=== PATIENT | male | born 1955 | race Caucasian/White ===

== ENCOUNTER 2017-05-07 18:57 | Inpatient (IN) | payer OTHER ==
[~2017-05-07] VITALS: Ht 203.2 cm; Wt 149.0 kg
[2017-05-07] VITALS (32 sets, daily range): BP systolic 121–144; BP diastolic 64–73; PULSE 76–79; TEMP 98.5; O2SAT 93–98
[2017-05-07 19:25] LABS: BASO % 0.4 % (0.0-2.0); EOS # 0.3 (0.0-0.7); EOS % 3.2 % (0-4.0); GRAN # 7.7 (1.4-6.5); GRAN % 72.7 % (42.2-75.2); LYMPH # 1.7 (1.2-3.4); LYMPH % 15.7 % (20.0-51.0); MEAN CELL VOLUME 92 fl (80.0-100.0); MEAN CORPUSCULAR HEMOGLOBIN 31 pg (27.0-31.0); MEAN CORPUSCULAR HGB CONC 34 g/dl (33.0-37.0); MEAN PLATELET VOLUME 10.2 fl (7.4-10.4); MONO # 0.8 (0.1-0.6); MONO % 7.6 % (1.7-9.3); PLATELET COUNT 152 K/mm3 (130-400); RED BLOOD COUNT 3.89 M/mm3 (4.20-5.60); REDCELL DISTRIBUTION WIDTH-CV 12.4 % (11.5-14.5); WHITE BLOOD COUNT 10.6 K/mm3 (4.8-10.8)
[2017-05-07 19:27] LABS: PROTHROMBIN TIME 10.8 SECONDS (9.7-12.8)
[2017-05-07 19:30] LABS: HEMATOCRIT 35.7 % (42.0-52.0); PARTIAL THROMBOPLASTIN TIME 26.6 SECONDS (26.0-37.0)
[2017-05-07 19:35] LABS: ADJUSTED CALCIUM 9.3 mg/dL (8.4-10.2); ALBUMIN 3.5 gm/dL (3.5-5.0); BILIRUBIN,TOTAL 0.4 mg/dL (0.0-1.0); CALCIUM 8.9 mg/dL (8.4-10.2); CREATININE, serum 1.13 mg/dL (0.66-1.25); POTASSIUM 4.7 mmol/L (3.4-5.0); TOTAL PROTEIN 6.7 gm/dL (6.4-8.2)
[2017-05-07 19:48] LABS: TROPONIN-I 0.215 ng/mL (0.000-0.034)
[2017-05-07] MEDS ORDERED: ASPIRIN 81M81 MG/TA2 PO (20:12)
[2017-05-07] MEDS ORDERED: PRILOSEC 20MG20 MG (20:12)
[2017-05-07] MEDS ORDERED: NORVASC 10MG10 MG PO (20:13)
[2017-05-07] MEDS ORDERED: ZESTRIL40 MG PO (20:14)
[2017-05-07] MEDS ORDERED: GLUCOTROL10 MG PO (20:15)
[2017-05-07] MEDS ORDERED: LASIX 20MG TABL20 MG PO (20:16)
[2017-05-07] MEDS ORDERED: GLUCOPHAGE1000 MG PO (20:16)
[2017-05-07] MEDS ORDERED: IMDUR 60MG60 MG/TAB PO (20:17)
[2017-05-07] MEDS ORDERED: ZIAC 5/6.25MG T1 TAB PO (20:17)
[2017-05-07] MEDS ORDERED: LIPITOR 40MG TA40 MG PO (20:18)
[2017-05-07] MEDS ORDERED: LANTUS100 U/ML SQ ×2 (20:41)
[2017-05-07] MEDS ORDERED: NOVOLIN 70/30 710 ML SQ (20:42)
[2017-05-08] VITALS (726 sets, daily range): BP systolic 97–148; BP diastolic 55–84; PULSE 71–98; TEMP 98.2–101.8; O2SAT 75–100
[2017-05-08 07:48] LABS: PARTIAL THROMBOPLASTIN TIME 41.2 SECONDS (26.0-37.0)
[2017-05-08 09:23] LABS: ADJUSTED CALCIUM 9.9 mg/dL (8.4-10.2); ALBUMIN 3.4 gm/dL (3.5-5.0); BILIRUBIN,TOTAL 0.5 mg/dL (0.0-1.0); CALCIUM 9.4 mg/dL (8.4-10.2); CREATININE, serum 1.03 mg/dL (0.66-1.25); POTASSIUM 4.1 mmol/L (3.4-5.0); TOTAL PROTEIN 6.6 gm/dL (6.4-8.2)
[2017-05-08 20:03] LABS: PH 5 (5-8); SQUAMOUS EPITHELIAL 0-2 /hpf; URINE APPEARANCE Clear; URINE BACTERIA None Seen /hpf; URINE BILIRUBIN Negative (NEGATIVE); URINE BLOOD 2+ (NEGATIVE); URINE COLOR Yellow; URINE GLUCOSE Negative (NEGATIVE); URINE KETONE Trace (NEGATIVE); URINE RBC 0-2 /hpf; URINE UROBILINOGEN Negative (NEGATIVE)
[2017-05-09] VITALS (801 sets, daily range): BP systolic 130–163; BP diastolic 64–77; PULSE 64–92; TEMP 97.2–99.7; O2SAT 85–100
[2017-05-09 05:41] LABS: BASO % 0.3 % (0.0-2.0); EOS # 0.2 (0.0-0.7); EOS % 1.9 % (0-4.0); GRAN % 64.4 % (42.2-75.2); HEMATOCRIT 35.8 % (42.0-52.0); HEMOGLOBIN 11.9 g/dl (13.5-18.0); LYMPH # 1.7 (1.2-3.4); LYMPH % 21.3 % (20.0-51.0); MEAN CELL VOLUME 92 fl (80.0-100.0); MEAN CORPUSCULAR HEMOGLOBIN 31 pg (27.0-31.0); MEAN CORPUSCULAR HGB CONC 33 g/dl (33.0-37.0); MONO # 0.9 (0.1-0.6); MONO % 11.7 % (1.7-9.3); PLATELET COUNT 145 K/mm3 (130-400); REDCELL DISTRIBUTION WIDTH-CV 12.5 % (11.5-14.5); WHITE BLOOD COUNT 7.8 K/mm3 (4.8-10.8)
[2017-05-09 05:47] LABS: CALCIUM 9.1 mg/dL (8.4-10.2); CREATININE, serum 0.97 mg/dL (0.66-1.25); POTASSIUM 4.2 mmol/L (3.4-5.0)
[2017-05-10] VITALS (360 sets, daily range): BP systolic 104–136; BP diastolic 41–78; PULSE 54–68; TEMP 9.7; O2SAT 88–100
[2017-05-10 11:29] LABS: BASO % 0.2 % (0.0-2.0); EOS # 0.2 (0.0-0.7); EOS % 2.6 % (0-4.0); GRAN # 5.6 (1.4-6.5); GRAN % 69.6 % (42.2-75.2); LYMPH # 1.5 (1.2-3.4); LYMPH % 18.9 % (20.0-51.0); MEAN CELL VOLUME 92 fl (80.0-100.0); MEAN CORPUSCULAR HGB CONC 33 g/dl (33.0-37.0); MEAN PLATELET VOLUME 10.1 fl (7.4-10.4); MONO # 0.7 (0.1-0.6); MONO % 8.3 % (1.7-9.3); PLATELET COUNT 157 K/mm3 (130-400); RED BLOOD COUNT 3.86 M/mm3 (4.20-5.60); REDCELL DISTRIBUTION WIDTH-CV 12.5 % (11.5-14.5); WHITE BLOOD COUNT 8.1 K/mm3 (4.8-10.8)
[2017-05-10 11:32] LABS: HEMATOCRIT 35.4 % (42.0-52.0); HEMOGLOBIN 11.8 g/dl (13.5-18.0); MEAN CORPUSCULAR HEMOGLOBIN 31 pg (27.0-31.0)
[2017-05-10 11:33] LABS: CREATININE, serum 0.94 mg/dL (0.66-1.25); POTASSIUM 4.6 mmol/L (3.4-5.0)
[2017-05-11 03:45] VITALS: BP 149/64; PULSE 63; TEMP 99.1
[2017-05-11 07:10] LABS: HEMOGLOBIN 12.4 g/dl (13.5-18.0); MEAN CELL VOLUME 90 fl (80.0-100.0); MEAN CORPUSCULAR HEMOGLOBIN 31 pg (27.0-31.0); MEAN CORPUSCULAR HGB CONC 34 g/dl (33.0-37.0); PLATELET COUNT 161 K/mm3 (130-400); RED BLOOD COUNT 4.04 M/mm3 (4.20-5.60); REDCELL DISTRIBUTION WIDTH-CV 12.4 % (11.5-14.5); WHITE BLOOD COUNT 8.7 K/mm3 (4.8-10.8)
[2017-05-11 07:16] LABS: HEMATOCRIT 36.5 % (42.0-52.0)
[2017-05-11 08:29] VITALS: BP 123/57; PULSE 66; TEMP 98
[2017-05-11 11:32] VITALS: BP 122/60; PULSE 66; TEMP 99
[2017-05-11 16:55] VITALS: BP 126/66; PULSE 65; TEMP 96.8
[2017-05-11 19:15] VITALS: BP 131/61; PULSE 74; TEMP 98.8
[2017-05-12 00:23] VITALS: BP 142/66; PULSE 57; TEMP 98.6
[2017-05-12 03:22] VITALS: BP 138/90; PULSE 55; TEMP 99
[2017-05-12 07:10] VITALS: BP 120/72; PULSE 56; TEMP 98
[2017-05-12 09:16] LABS: HEMATOCRIT 37.7 % (42.0-52.0); HEMOGLOBIN 12.5 g/dl (13.5-18.0); MEAN CELL VOLUME 91 fl (80.0-100.0); MEAN CORPUSCULAR HEMOGLOBIN 30 pg (27.0-31.0); MEAN CORPUSCULAR HGB CONC 33 g/dl (33.0-37.0); MEAN PLATELET VOLUME 9.9 fl (7.4-10.4); PLATELET COUNT 183 K/mm3 (130-400); RED BLOOD COUNT 4.13 M/mm3 (4.20-5.60); REDCELL DISTRIBUTION WIDTH-CV 12.2 % (11.5-14.5); WHITE BLOOD COUNT 9.3 K/mm3 (4.8-10.8)
[2017-05-12 09:37] LABS: CREATININE, serum 0.96 mg/dL (0.66-1.25); POTASSIUM 4.4 mmol/L (3.4-5.0)
[2017-05-12 10:04] LABS: THYROID STIMULATING HORMONE 0.935 uIU/mL (0.465-4.680)
[2017-05-12] MEDS ORDERED: BRILINTA90 MG PO (12:03)
[2017-05-12] MEDS ORDERED: ASPIRIN E.C. 8181 MG PO (12:05)
[2017-05-12] MEDS ORDERED: ZITHROMAX Z PA250 MG PO (12:08)
[2017-05-12 13:21] VITALS: BP 11/62; PULSE 71; TEMP 98
[2017-05-12] MEDS ORDERED: NOVOLOG 100U100 U/M1 SQ (16:05)
[2017-05-12] MEDS ORDERED: PREDNISONE20 MG PO (16:09)
== END 2017-05-12 14:59 | DRG 248 ==
LOC: COL.ER 18:57 → ICU 20:26 → MEDICAL 05-10 13:03
PROVIDERS: Emergency Medicine; Internal Medicine; Internal Medicine Cardiovascular Disease
PROC: 02703EZ Dilation of Coronary Artery, One Artery with Two Intraluminal Devices, Percutaneous Approach (ICD-10-PCS; principal; 2017-05-08)
PROC: B2111ZZ Fluoroscopy of Multiple Coronary Arteries using Low Osmolar Contrast (ICD-10-PCS; 2017-05-08)
PROC: 3E03317 Introduction of Other Thrombolytic into Peripheral Vein, Percutaneous Approach (ICD-10-PCS; 2017-05-08)
DX: I21.4 Non-ST elevation (NSTEMI) myocardial infarction (principal); I63.9 Cerebral infarction, unspecified; E87.1 Hypo-osmolality and hyponatremia; J44.1 Chronic obstructive pulmonary disease with (acute) exacerbation; I50.20 Unspecified systolic (congestive) heart failure; G81.91 Hemiplegia, unspecified affecting right dominant side; R29.810 Facial weakness; E11.65 Type 2 diabetes mellitus with hyperglycemia; E78.5 Hyperlipidemia, unspecified; I25.10 Atherosclerotic heart disease of native coronary artery without angina pectoris; I11.0 Hypertensive heart disease with heart failure; Z79.4 Long term (current) use of insulin; Z87.891 Personal history of nicotine dependence
CPT/HCPCS: OP; 99223-AI; 99233-AI; 99239; A4315; A9585; C1760; C1769; C1876; C1887; C1894; J0583; J1644; J1815; J1940; J1956; J2250; J2270; J2997; J3010; J7512; Q9967

== ENCOUNTER 2017-05-12 15:08 | Inpatient (IN) | payer OTHER ==
[~2017-05-12] VITALS: Ht 203.2 cm; Wt 149.2 kg
[~2017-05-12 15:08] MED LIST: ASPIRIN 81M81 MG/TA2 PO; ASPIRIN E.C. 8181 MG PO; BRILINTA90 MG PO; GLUCOPHAGE1000 MG PO; GLUCOTROL10 MG PO; IMDUR 60MG60 MG/TAB PO; LANTUS100 U/ML SQ; LASIX 20MG TABL20 MG PO; LIPITOR 40MG TA40 MG PO; NORVASC 10MG10 MG PO; NOVOLIN 70/30 710 ML SQ; PRILOSEC 20MG20 MG; ZESTRIL40 MG PO; ZIAC 5/6.25MG T1 TAB PO; ZITHROMAX Z PA250 MG PO
[2017-05-12 15:21] VITALS: BP 143/67; PULSE 70; TEMP 97.7
[2017-05-12] MEDS ORDERED: NOVOLOG 100U100 U/M1 SQ (16:05)
[2017-05-12] MEDS ORDERED: PREDNISONE20 MG PO (16:09)
[2017-05-12 18:49] VITALS: BP 143/67; PULSE 70; TEMP 97.7
[2017-05-13 03:53] VITALS: BP 139/61; PULSE 51; TEMP 98.8
[2017-05-13 18:14] VITALS: BP 123/65; PULSE 60; TEMP 98.5
[2017-05-14 05:00] VITALS: BP 132/46; PULSE 53; TEMP 98.6
[2017-05-14 16:39] VITALS: BP 113/51; PULSE 58; TEMP 98.2
[2017-05-15 05:19] VITALS: BP 125/57; PULSE 56; TEMP 98.3
[2017-05-15 17:47] VITALS: BP 116/56; PULSE 65; TEMP 97.8
[2017-05-16 04:56] VITALS: BP 136/53; PULSE 52; TEMP 97.8
[2017-05-16 15:46] VITALS: BP 110/54; PULSE 65; TEMP 98.5
[2017-05-17 03:34] VITALS: BP 134/56; PULSE 59; TEMP 97.5
[2017-05-17 18:29] VITALS: BP 119/55; PULSE 74; TEMP 98.2
[2017-05-18 05:41] VITALS: BP 133/62; PULSE 60; TEMP 97.7
[2017-05-18 15:00] VITALS: BP 121/55; PULSE 68; TEMP 98.2
[2017-05-19 06:19] VITALS: BP 126/59; PULSE 59; TEMP 97.7
[2017-05-19 18:03] VITALS: BP 110/53; PULSE 61; TEMP 97.7
[2017-05-20 04:44] VITALS: BP 134/64; PULSE 52; TEMP 98.1
[2017-05-20 05:02] VITALS: BP 134/64; PULSE 52; TEMP 98.1
[2017-05-20 17:42] VITALS: BP 108/55; PULSE 70; TEMP 99.5
[2017-05-21 05:25] VITALS: BP 144/75; PULSE 57; TEMP 97.1
[2017-05-21 16:26] VITALS: BP 114/52; PULSE 67; TEMP 98.4
[2017-05-22 04:42] VITALS: BP 139/66; PULSE 58; TEMP 97.7
[2017-05-22 17:42] VITALS: BP 119/60; PULSE 73; TEMP 98.5
[2017-05-23 05:45] VITALS: BP 128/63; PULSE 63; TEMP 97.9
[2017-05-23 17:00] VITALS: BP 110/60; PULSE 78; TEMP 98.7
[2017-05-24 04:46] VITALS: BP 128/67; PULSE 61; TEMP 97.6
[2017-05-24] MEDS ORDERED: BRILINTA90 MG PO (13:44)
[2017-05-24] MEDS ORDERED: LASIX 20MG TABL20 MG PO (13:45)
[2017-05-24] MEDS ORDERED: PREDNISONE10 MG PO (13:48)
== END 2017-05-24 16:35 | disposition home or self-care (01) | DRG 56 ==
DX: I69.351 Hemiplegia and hemiparesis following cerebral infarction affecting right dominant side (principal); I21.4 Non-ST elevation (NSTEMI) myocardial infarction; I69.322 Dysarthria following cerebral infarction; I69.391 Dysphagia following cerebral infarction; R13.10 Dysphagia, unspecified; I25.10 Atherosclerotic heart disease of native coronary artery without angina pectoris; Z95.5 Presence of coronary angioplasty implant and graft; I11.0 Hypertensive heart disease with heart failure; I50.9 Heart failure, unspecified; J44.9 Chronic obstructive pulmonary disease, unspecified; E11.42 Type 2 diabetes mellitus with diabetic polyneuropathy; E66.01 Morbid (severe) obesity due to excess calories; Z68.35 Body mass index [BMI] 35.0-35.9, adult; E11.65 Type 2 diabetes mellitus with hyperglycemia; Z87.891 Personal history of nicotine dependence
CPT/HCPCS: 99222-AI; 99232-AI; 99239; A9284; J1650; J1815; J7512

== ENCOUNTER → 2017-06-05 | Outpatient (CLI) | payer OTHER ==
[~2017-06-05] MED LIST changes: +NOVOLOG 100U100 U/M1 SQ; +PREDNISONE10 MG PO; +PREDNISONE20 MG PO
[2017-06-05 14:36] LABS: BASO # 0.1 (0.0-0.2); BASO % 0.5 % (0.0-2.0); EOS # 0.3 (0.0-0.7); EOS % 2.8 % (0-4.0); GRAN # 7.8 (1.4-6.5); HEMATOCRIT 38.5 % (42.0-52.0); HEMOGLOBIN 12.7 g/dl (13.5-18.0); LYMPH # 2.2 (1.2-3.4); LYMPH % 20.1 % (20.0-51.0); MEAN CELL VOLUME 93 fl (80.0-100.0); MEAN CORPUSCULAR HEMOGLOBIN 31 pg (27.0-31.0); MEAN CORPUSCULAR HGB CONC 33 g/dl (33.0-37.0); MEAN PLATELET VOLUME 9.8 fl (7.4-10.4); MONO # 0.6 (0.1-0.6); MONO % 5.1 % (1.7-9.3); PLATELET COUNT 172 K/mm3 (130-400); RED BLOOD COUNT 4.15 M/mm3 (4.20-5.60); REDCELL DISTRIBUTION WIDTH-CV 13.3 % (11.5-14.5)
[2017-06-05 14:41] LABS: ADJUSTED CALCIUM 9.6 mg/dL (8.4-10.2); ALBUMIN 4.2 gm/dL (3.5-5.0); BILIRUBIN,TOTAL 0.6 mg/dL (0.0-1.0); CALCIUM 9.8 mg/dL (8.4-10.2); CREATININE, serum 0.99 mg/dL (0.66-1.25); MAGNESIUM 1.5 mg/dL (1.6-2.3); POTASSIUM 4.9 mmol/L (3.4-5.0); TOTAL PROTEIN 7.5 gm/dL (6.4-8.2)
== END ==
LOC: COL.LAB 12:37
PROVIDERS: Family Medicine
DX: E11.9 Type 2 diabetes mellitus without complications (principal)

== ENCOUNTER 2017-09-26 08:01 | Emergency (ER) | payer SELFPAY ==
[~2017-09-26] VITALS: Ht 203.2 cm; Wt 145.9 kg
[2017-09-26 08:02] VITALS: TEMP 98
[2017-09-26] MEDS ORDERED: PRINIVIL10 MG PO (08:11)
[2017-09-26] MEDS ORDERED: PLAVIX 75MG TAB75 MG PO (08:12)
[2017-09-26] MEDS ORDERED: NITROSTAT0.4 MG/TAB SL (08:15)
[2017-09-26 08:45] LABS: BASO # 0.1 (0.0-0.2); BASO % 0.5 % (0.0-2.0); EOS # 0.3 (0.0-0.7); GRAN # 7.9 (1.4-6.5); GRAN % 72.8 % (42.2-75.2); HEMATOCRIT 40.7 % (42.0-52.0); HEMOGLOBIN 13.5 g/dl (13.5-18.0); LYMPH # 1.9 (1.2-3.4); LYMPH % 17.1 % (20.0-51.0); MEAN CELL VOLUME 91 fl (80.0-100.0); MEAN CORPUSCULAR HEMOGLOBIN 30 pg (27.0-31.0); MEAN CORPUSCULAR HGB CONC 33 g/dl (33.0-37.0); MEAN PLATELET VOLUME 9.5 fl (7.4-10.4); MONO # 0.7 (0.1-0.6); MONO % 6.1 % (1.7-9.3); PLATELET COUNT 217 K/mm3 (130-400); RED BLOOD COUNT 4.47 M/mm3 (4.20-5.60); REDCELL DISTRIBUTION WIDTH-CV 12.1 % (11.5-14.5)
[2017-09-26 08:57] LABS: ALBUMIN 4.2 gm/dL (3.5-5.0); BILIRUBIN,TOTAL 0.5 mg/dL (0.0-1.0); CALCIUM 9.9 mg/dL (8.4-10.2); CREATININE, serum 1.15 mg/dL (0.66-1.25); POTASSIUM 4.3 mmol/L (3.4-5.0); TOTAL PROTEIN 7.7 gm/dL (6.4-8.2)
[2017-09-26] MEDS ORDERED: CEPHALEXIN500 M1 PO (09:16)
[2017-09-26 10:10] VITALS: BP 109/77; PULSE 80
== END 2017-09-26 10:01 | disposition home or self-care (01) ==
LOC: COL.ER 08:01
PROVIDERS: Emergency Medicine
DX: S91.201A Unspecified open wound of right great toe with damage to nail, initial encounter (principal); I25.10 Atherosclerotic heart disease of native coronary artery without angina pectoris; Z86.73 Personal history of transient ischemic attack (TIA), and cerebral infarction without residual deficits; Z79.82 Long term (current) use of aspirin; Z23 Encounter for immunization; Z79.84 Long term (current) use of oral hypoglycemic drugs; W01.0XXA Fall on same level from slipping, tripping and stumbling without subsequent striking against object, initial encounter; Y92.009 Unspecified place in unspecified non-institutional (private) residence as the place of occurrence of the external cause

== ENCOUNTER 2017-10-23 11:40 | Inpatient (IN) | payer OTHER ==
[~2017-10-23] VITALS: Ht 203.2 cm; Wt 148.5 kg
[~2017-10-23 11:40] MED LIST changes: +CEPHALEXIN500 M1 PO; -IMDUR 60MG60 MG/TAB PO; +NITROSTAT0.4 MG/TAB SL; +PLAVIX 75MG TAB75 MG PO; +PRINIVIL10 MG PO
[2017-10-23 12:30] LABS: BASO # 0.1 (0.0-0.2); BASO % 0.4 % (0.0-2.0); EOS # 0.4 (0.0-0.7); EOS % 2.9 % (0-4.0); GRAN # 9.7 (1.4-6.5); GRAN % 74.4 % (42.2-75.2); HEMATOCRIT 41.3 % (42.0-52.0); HEMOGLOBIN 13.6 g/dl (13.5-18.0); LYMPH # 2.1 (1.2-3.4); LYMPH % 15.9 % (20.0-51.0); MEAN CELL VOLUME 92 fl (80.0-100.0); MEAN CORPUSCULAR HEMOGLOBIN 30 pg (27.0-31.0); MEAN CORPUSCULAR HGB CONC 33 g/dl (33.0-37.0); MONO # 0.8 (0.1-0.6); MONO % 6.1 % (1.7-9.3); PLATELET COUNT 216 K/mm3 (130-400); REDCELL DISTRIBUTION WIDTH-CV 12.6 % (11.5-14.5)
[2017-10-23 12:36] LABS: ALANINE AMINOTRANSFERASE 97 U/L (21-72); ALBUMIN 4.2 gm/dL (3.5-5.0); ALKALINE PHOSPHATASE 94 U/L (50-136); ANION GAP 11 mmol/L (7-16); AST,SGOT 43 U/L (15-37); BILIRUBIN,TOTAL 0.4 mg/dL (0.0-1.0); BLOOD UREA NITROGEN 35 mg/dL (9-20); CARBON DIOXIDE 25 mmol/L (22-30); CHLORIDE 98 mmol/L (98-107); CREATININE, serum 1.13 mg/dL (0.66-1.25); GLUCOSE 387 mg/dL (74-106); LIPASE 92 U/L (23-300); MAGNESIUM 1.5 mg/dL (1.6-2.3); PHOSPHOROUS 4.2 mg/dL (2.5-4.5); POTASSIUM 5.2 mmol/L (3.4-5.0); PROTHROMBIN TIME 11.5 SECONDS (9.7-12.8); SODIUM 134 mmol/L (137-145); TOTAL PROTEIN 7.8 gm/dL (6.4-8.2)
[2017-10-23] MEDS ORDERED: NOVOLIN 70/30 710 ML SQ (12:36)
[2017-10-23] MEDS ORDERED: LANTUS100 U/ML SQ (12:36)
[2017-10-23 12:38] LABS: PARTIAL THROMBOPLASTIN TIME 27.5 SECONDS (26.0-37.0)
[2017-10-23] MEDS ORDERED: IMDUR 60MG60 MG/TAB PO (12:40)
[2017-10-23 12:48] LABS: TROPONIN-I < 0.012 ng/mL (0.000-0.034)
[2017-10-23 17:56] VITALS: BP 117/61; PULSE 76; TEMP 97.8
[2017-10-23 20:13] VITALS: BP 116/83; PULSE 87; TEMP 98.1
[2017-10-24] VITALS (21 sets, daily range): BP systolic 92–139; BP diastolic 50–95; PULSE 73–108; TEMP 97.4–98.6
[2017-10-24 05:08] LABS: BASO % 0.4 % (0.0-2.0); EOS # 0.4 (0.0-0.7); EOS % 4.3 % (0-4.0); GRAN # 6.4 (1.4-6.5); GRAN % 67.1 % (42.2-75.2); HEMATOCRIT 38.5 % (42.0-52.0); HEMOGLOBIN 12.9 g/dl (13.5-18.0); LYMPH % 20.4 % (20.0-51.0); MEAN CELL VOLUME 91 fl (80.0-100.0); MEAN CORPUSCULAR HEMOGLOBIN 31 pg (27.0-31.0); MEAN CORPUSCULAR HGB CONC 34 g/dl (33.0-37.0); MEAN PLATELET VOLUME 9.8 fl (7.4-10.4); MONO # 0.7 (0.1-0.6); MONO % 7.5 % (1.7-9.3); PLATELET COUNT 189 K/mm3 (130-400); RED BLOOD COUNT 4.23 M/mm3 (4.20-5.60); REDCELL DISTRIBUTION WIDTH-CV 12.6 % (11.5-14.5)
[2017-10-24 05:23] LABS: CALCIUM 9.7 mg/dL (8.4-10.2); CREATININE, serum 1.42 mg/dL (0.66-1.25); MAGNESIUM 1.8 mg/dL (1.6-2.3); POTASSIUM 4.3 mmol/L (3.4-5.0)
[2017-10-25] VITALS (503 sets, daily range): BP systolic 98–135; BP diastolic 49–82; PULSE 62–93; TEMP 97.1–98.2; O2SAT 74–100
[2017-10-25 07:04] LABS: BASO % 0.4 % (0.0-2.0); EOS # 0.3 (0.0-0.7); GRAN # 5.6 (1.4-6.5); GRAN % 65.9 % (42.2-75.2); HEMATOCRIT 38.9 % (42.0-52.0); HEMOGLOBIN 12.9 g/dl (13.5-18.0); LYMPH # 1.8 (1.2-3.4); LYMPH % 21.3 % (20.0-51.0); MEAN CELL VOLUME 91 fl (80.0-100.0); MEAN CORPUSCULAR HEMOGLOBIN 30 pg (27.0-31.0); MEAN CORPUSCULAR HGB CONC 33 g/dl (33.0-37.0); MEAN PLATELET VOLUME 9.8 fl (7.4-10.4); MONO # 0.7 (0.1-0.6); MONO % 7.9 % (1.7-9.3); PLATELET COUNT 204 K/mm3 (130-400); RED BLOOD COUNT 4.28 M/mm3 (4.20-5.60); REDCELL DISTRIBUTION WIDTH-CV 12.6 % (11.5-14.5)
[2017-10-25 07:16] LABS: CALCIUM 9.5 mg/dL (8.4-10.2); CREATININE, serum 1.55 mg/dL (0.66-1.25); POTASSIUM 4.2 mmol/L (3.4-5.0)
[2017-10-26] VITALS (254 sets, daily range): BP systolic 141–166; BP diastolic 64–72; PULSE 77–102; TEMP 98–98.6; O2SAT 81–100
[2017-10-26 03:50] LABS: BASO % 0.3 % (0.0-2.0); EOS # 0.3 (0.0-0.7); EOS % 2.7 % (0-4.0); GRAN # 6.8 (1.4-6.5); GRAN % 73.7 % (42.2-75.2); HEMATOCRIT 36.5 % (42.0-52.0); HEMOGLOBIN 12.3 g/dl (13.5-18.0); LYMPH # 1.4 (1.2-3.4); LYMPH % 14.9 % (20.0-51.0); MEAN CELL VOLUME 91 fl (80.0-100.0); MEAN CORPUSCULAR HEMOGLOBIN 31 pg (27.0-31.0); MEAN CORPUSCULAR HGB CONC 34 g/dl (33.0-37.0); MEAN PLATELET VOLUME 9.7 fl (7.4-10.4); MONO # 0.7 (0.1-0.6); MONO % 8.1 % (1.7-9.3); PLATELET COUNT 168 K/mm3 (130-400); RED BLOOD COUNT 4.02 M/mm3 (4.20-5.60); REDCELL DISTRIBUTION WIDTH-CV 12.5 % (11.5-14.5)
[2017-10-26 04:00] LABS: CALCIUM 9.2 mg/dL (8.4-10.2); CREATININE, serum 1.33 mg/dL (0.66-1.25); MAGNESIUM 1.9 mg/dL (1.6-2.3); POTASSIUM 4.3 mmol/L (3.4-5.0)
== END 2017-10-26 13:14 | disposition home or self-care (01) | DRG 247 ==
LOC: COL.ER 11:40 → MEDICAL 14:09 → ICU 10-25 12:00 → MEDICAL 10-26 06:20
PROVIDERS: Emergency Medicine; Nurse Practitioner; Physician Assistant
PROC: B2111ZZ Fluoroscopy of Multiple Coronary Arteries using Low Osmolar Contrast (ICD-10-PCS; principal; 2017-10-25)
PROC: 027034Z Dilation of Coronary Artery, One Artery with Drug-eluting Intraluminal Device, Percutaneous Approach (ICD-10-PCS; 2017-10-25)
PROC: 02703ZZ Dilation of Coronary Artery, One Artery, Percutaneous Approach (ICD-10-PCS; 2017-10-25)
DX: I25.119 Atherosclerotic heart disease of native coronary artery with unspecified angina pectoris (principal); I50.22 Chronic systolic (congestive) heart failure; T82.855A Stenosis of coronary artery stent, initial encounter; N17.9 Acute kidney failure, unspecified; I25.82 Chronic total occlusion of coronary artery; Z95.5 Presence of coronary angioplasty implant and graft; E11.65 Type 2 diabetes mellitus with hyperglycemia; J44.9 Chronic obstructive pulmonary disease, unspecified; I11.0 Hypertensive heart disease with heart failure; Z79.4 Long term (current) use of insulin; Z87.891 Personal history of nicotine dependence; E87.5 Hyperkalemia; E83.42 Hypomagnesemia; Z86.73 Personal history of transient ischemic attack (TIA), and cerebral infarction without residual deficits
CPT/HCPCS: 99232-AI; 99239; A9502; G0378; J1644; J1650; J1815; J2250; J2270; J2785; J3010; J3475; J7030; Q9967

== ENCOUNTER 2018-01-07 20:13 | Emergency (ER) | payer OTHER ==
[~2018-01-07] VITALS: Ht 203.2 cm; Wt 149.5 kg
[~2018-01-07 20:13] MED LIST changes: +IMDUR 60MG60 MG/TAB PO
[2018-01-07 20:31] VITALS: TEMP 97.9
[2018-01-07] MEDS ORDERED: NORCO 325 MG-51 TAB PO (22:02)
[2018-01-07 22:24] VITALS: BP 144/84; PULSE 79
== END 2018-01-07 22:25 | disposition home or self-care (01) ==
LOC: COL.ER 20:13
DX: S93.602A Unspecified sprain of left foot, initial encounter (principal); E11.9 Type 2 diabetes mellitus without complications; Z79.82 Long term (current) use of aspirin; Z79.4 Long term (current) use of insulin; X58.XXXA Exposure to other specified factors, initial encounter
CPT/HCPCS: J1885

== ENCOUNTER 2018-04-01 23:30 | Emergency (ER) | payer MEDICARE ==
[~2018-04-01] VITALS: Ht 193 cm; Wt 149.5 kg
[~2018-04-01 23:30] MED LIST changes: +NORCO 325 MG-51 TAB PO
[2018-04-01 23:32] VITALS: BP 128/83; TEMP 97.9
[2018-04-02] MEDS ORDERED: DOXYCYCLINE HY100 MG PO (02:19)
[2018-04-02] MEDS ORDERED: NORCO 325 MG-51 TAB PO (02:19)
[2018-04-02] MEDS ORDERED: ROXICODONE 55 MG/TAB PO (02:39)
[2018-04-02 03:15] VITALS: PULSE 76
== END 2018-04-02 03:15 | disposition home or self-care (01) ==
LOC: COL.ER 23:30
DX: S80.01XA Contusion of right knee, initial encounter (principal); S99.921A Unspecified injury of right foot, initial encounter; S90.414A Abrasion, right lesser toe(s), initial encounter; E11.9 Type 2 diabetes mellitus without complications; I25.10 Atherosclerotic heart disease of native coronary artery without angina pectoris; I50.9 Heart failure, unspecified; Z79.4 Long term (current) use of insulin; Z79.82 Long term (current) use of aspirin; Z90.89 Acquired absence of other organs; Z87.891 Personal history of nicotine dependence; W01.0XXA Fall on same level from slipping, tripping and stumbling without subsequent striking against object, initial encounter

== ENCOUNTER 2018-05-20 15:44 | Inpatient (IN) | payer MEDICARE ==
[~2018-05-20] VITALS: Ht 203.2 cm; Wt 140.0 kg
[~2018-05-20 15:44] MED LIST changes: +DOXYCYCLINE HY100 MG PO; -PRILOSEC 20MG20 MG; +PRILOSEC 20MG20 MG PO; +ROXICODONE 55 MG/TAB PO
[2018-05-20 16:29] LABS: BASO % 0.3 % (0.0-2.0); EOS # 0.3 (0.0-0.7); EOS % 1.9 % (0-4.0); GRAN # 10.2 (1.4-6.5); HEMATOCRIT 37.4 % (42.0-52.0); HEMOGLOBIN 12.3 g/dl (13.5-18.0); LYMPH # 1.8 (1.2-3.4); LYMPH % 13.7 % (20.0-51.0); MEAN CELL VOLUME 92 fl (80.0-100.0); MEAN CORPUSCULAR HEMOGLOBIN 30 pg (27.0-31.0); MEAN CORPUSCULAR HGB CONC 33 g/dl (33.0-37.0); MEAN PLATELET VOLUME 9.6 fl (7.4-10.4); MONO % 7.7 % (1.7-9.3); PLATELET COUNT 232 K/mm3 (130-400); RED BLOOD COUNT 4.05 M/mm3 (4.20-5.60); REDCELL DISTRIBUTION WIDTH-CV 12.6 % (11.5-14.5)
[2018-05-20 16:36] LABS: ALANINE AMINOTRANSFERASE 43 U/L (21-72); ALKALINE PHOSPHATASE 67 U/L (50-136); ANION GAP 14 mmol/L (7-16); AST,SGOT 24 U/L (15-37); BILIRUBIN,TOTAL 0.4 mg/dL (0.0-1.0); BLOOD UREA NITROGEN 24 mg/dL (9-20); CALCIUM 9.4 mg/dL (8.4-10.2); CARBON DIOXIDE 26 mmol/L (22-30); CHLORIDE 98 mmol/L (98-107); CREATININE, serum 0.93 mg/dL (0.66-1.25); GLUCOSE 280 mg/dL (74-106); MAGNESIUM 1.2 mg/dL (1.6-2.3); POTASSIUM 4.2 mmol/L (3.4-5.0); SODIUM 138 mmol/L (137-145); TOTAL PROTEIN 7.7 gm/dL (6.4-8.2)
[2018-05-20 16:38] LABS: PROTHROMBIN TIME 11.6 SECONDS (9.7-12.8)
[2018-05-20 16:40] LABS: PARTIAL THROMBOPLASTIN TIME 31.1 SECONDS (26.0-37.0)
[2018-05-20 16:48] LABS: TROPONIN-I < 0.012 ng/mL (0.000-0.034)
[2018-05-20 20:27] VITALS: BP 188/74; PULSE 77; TEMP 98.4
[2018-05-20] MEDS ORDERED: NOVOLOG 100U100 U/M1 SQ (21:04)
[2018-05-21] VITALS (10 sets, daily range): BP systolic 117–156; BP diastolic 62–82; PULSE 70–92; TEMP 97.4–98.9
[2018-05-21 04:09] LABS: BASO % 0.3 % (0.0-2.0); EOS # 0.4 (0.0-0.7); EOS % 2.8 % (0-4.0); GRAN # 8.8 (1.4-6.5); GRAN % 69.8 % (42.2-75.2); HEMOGLOBIN 11.4 g/dl (13.5-18.0); LYMPH # 2.5 (1.2-3.4); LYMPH % 19.7 % (20.0-51.0); MEAN CELL VOLUME 93 fl (80.0-100.0); MEAN CORPUSCULAR HEMOGLOBIN 30 pg (27.0-31.0); MEAN CORPUSCULAR HGB CONC 33 g/dl (33.0-37.0); MEAN PLATELET VOLUME 9.5 fl (7.4-10.4); MONO # 0.9 (0.1-0.6); MONO % 7.1 % (1.7-9.3); PLATELET COUNT 200 K/mm3 (130-400); RED BLOOD COUNT 3.75 M/mm3 (4.20-5.60); REDCELL DISTRIBUTION WIDTH-CV 12.7 % (11.5-14.5)
[2018-05-21 04:10] LABS: HEMATOCRIT 34.9 % (42.0-52.0)
[2018-05-21 04:31] LABS: ANION GAP 11 mmol/L (7-16); BLOOD UREA NITROGEN 21 mg/dL (9-20); CARBON DIOXIDE 27 mmol/L (22-30); CHLORIDE 100 mmol/L (98-107); CHOLESTEROL 91 mg/dL (120-200); CHOLESTEROL RISK RATIO 3.5; CREATININE, serum 0.89 mg/dL (0.66-1.25); GLUCOSE 145 mg/dL (74-106); HDL CHOLESTEROL 26 mg/dL; LDL CHOLESTEROL 38 mg/dL; POTASSIUM 3.7 mmol/L (3.4-5.0); SODIUM 138 mmol/L (137-145); TRIGLYCERIDE 137 mg/dL
[2018-05-21 04:59] LABS: TROPONIN-I < 0.012 ng/mL (0.000-0.034)
[2018-05-22 00:14] VITALS: BP 168/74; PULSE 70; TEMP 98.5
[2018-05-22 04:58] VITALS: BP 150/71; PULSE 75; TEMP 98.4
[2018-05-22 07:40] LABS: BASO % 0.4 % (0.0-2.0); EOS # 0.3 (0.0-0.7); EOS % 2.7 % (0-4.0); GRAN # 6.8 (1.4-6.5); GRAN % 69.6 % (42.2-75.2); LYMPH # 1.7 (1.2-3.4); LYMPH % 17.8 % (20.0-51.0); MEAN CELL VOLUME 93 fl (80.0-100.0); MEAN CORPUSCULAR HEMOGLOBIN 30 pg (27.0-31.0); MEAN CORPUSCULAR HGB CONC 33 g/dl (33.0-37.0); MEAN PLATELET VOLUME 9.8 fl (7.4-10.4); MONO # 0.9 (0.1-0.6); PLATELET COUNT 213 K/mm3 (130-400); RED BLOOD COUNT 3.96 M/mm3 (4.20-5.60); REDCELL DISTRIBUTION WIDTH-CV 12.5 % (11.5-14.5)
[2018-05-22 07:42] LABS: HEMATOCRIT 36.7 % (42.0-52.0)
[2018-05-22 07:52] LABS: CALCIUM 9.3 mg/dL (8.4-10.2); CREATININE, serum 0.87 mg/dL (0.66-1.25); POTASSIUM 3.9 mmol/L (3.4-5.0)
[2018-05-22 07:54] VITALS: BP 162/72; PULSE 69; TEMP 99.4
[2018-05-22 09:44] LABS: PH 6 (5-8); SQUAMOUS EPITHELIAL 0-2 /hpf; URINE APPEARANCE Clear; URINE BACTERIA None Seen /hpf; URINE BILIRUBIN Negative (NEGATIVE); URINE BLOOD Negative (NEGATIVE); URINE COLOR Yellow; URINE GLUCOSE 2+ (NEGATIVE); URINE KETONE Negative (NEGATIVE); URINE LEUKOCYTE ESTERASE Negative (NEGATIVE); URINE NITRATE Negative (NEGATIVE); URINE PROTEIN(semi-quant) 1+ (NEGATIVE); URINE RBC 0-2 /hpf; URINE UROBILINOGEN Negative (NEGATIVE)
[2018-05-22 09:48] LABS: COLLECTION METHOD CLEAN CATCH
[2018-05-22 12:06] VITALS: BP 125/60; PULSE 63; TEMP 98.7
[2018-05-22 16:37] VITALS: BP 105/81; PULSE 97; TEMP 98.4
[2018-05-22 20:30] VITALS: BP 152/73; PULSE 76; TEMP 98.6
[2018-05-23] VITALS (8 sets, daily range): BP systolic 99–133; BP diastolic 54–74; PULSE 60–80; TEMP 98.2–99.4
[2018-05-23 06:23] LABS: BASO % 0.3 % (0.0-2.0); EOS # 0.3 (0.0-0.7); EOS % 2.8 % (0-4.0); GRAN # 7.4 (1.4-6.5); GRAN % 72.7 % (42.2-75.2); LYMPH # 1.5 (1.2-3.4); LYMPH % 14.6 % (20.0-51.0); MEAN CELL VOLUME 92 fl (80.0-100.0); MEAN CORPUSCULAR HEMOGLOBIN 30 pg (27.0-31.0); MEAN CORPUSCULAR HGB CONC 33 g/dl (33.0-37.0); MEAN PLATELET VOLUME 9.5 fl (7.4-10.4); MONO # 0.9 (0.1-0.6); MONO % 9.1 % (1.7-9.3); PLATELET COUNT 212 K/mm3 (130-400); RED BLOOD COUNT 3.96 M/mm3 (4.20-5.60); REDCELL DISTRIBUTION WIDTH-CV 12.5 % (11.5-14.5)
[2018-05-23 06:26] LABS: HEMATOCRIT 36.6 % (42.0-52.0)
[2018-05-23 06:50] LABS: CALCIUM 9.2 mg/dL (8.4-10.2); CREATININE, serum 0.9 mg/dL (0.66-1.25)
[2018-05-24 04:33] VITALS: BP 126/54; PULSE 53; TEMP 98.4
[2018-05-24 06:49] LABS: BASO % 0.2 % (0.0-2.0); EOS # 0.3 (0.0-0.7); EOS % 2.9 % (0-4.0); GRAN # 6.9 (1.4-6.5); HEMOGLOBIN 11.6 g/dl (13.5-18.0); LYMPH # 1.7 (1.2-3.4); LYMPH % 17.4 % (20.0-51.0); MEAN CELL VOLUME 92 fl (80.0-100.0); MEAN CORPUSCULAR HEMOGLOBIN 30 pg (27.0-31.0); MEAN CORPUSCULAR HGB CONC 33 g/dl (33.0-37.0); MEAN PLATELET VOLUME 9.5 fl (7.4-10.4); MONO # 0.8 (0.1-0.6); MONO % 8.1 % (1.7-9.3); PLATELET COUNT 218 K/mm3 (130-400); RED BLOOD COUNT 3.84 M/mm3 (4.20-5.60); REDCELL DISTRIBUTION WIDTH-CV 12.5 % (11.5-14.5)
[2018-05-24 06:54] VITALS: BP 120/66; PULSE 64; TEMP 98.2
[2018-05-24 06:54] LABS: HEMATOCRIT 35.5 % (42.0-52.0)
[2018-05-24 07:11] LABS: CALCIUM 9.3 mg/dL (8.4-10.2); CREATININE, serum 1.02 mg/dL (0.66-1.25); POTASSIUM 4.3 mmol/L (3.4-5.0)
[2018-05-24] MEDS ORDERED: ZESTRIL 5MG5 MG PO (10:26)
[2018-05-24] MEDS ORDERED: NORCO 325 MG-51 TAB PO (10:29)
[2018-05-24] MEDS ORDERED: NOVLOG SQ (10:29)
[2018-05-24] MEDS ORDERED: CEPHALEXIN500 M1 PO (10:31)
[2018-05-24 10:33] VITALS: BP 120/66; PULSE 64; TEMP 98.2
[2018-05-24] MEDS ORDERED: INDOCIN50 MG PO (10:33)
== END 2018-05-24 11:33 | DRG 313 ==
LOC: COL.ER 15:44 → ICU 18:26 → EDBEDREQ 19:13 → MEDICAL 05-21 20:15
PROVIDERS: Emergency Medicine; Hospitalist; Physician Assistant
DX: R07.89 Other chest pain (principal); E11.9 Type 2 diabetes mellitus without complications; Z79.4 Long term (current) use of insulin; E78.5 Hyperlipidemia, unspecified; D72.829 Elevated white blood cell count, unspecified; M25.532 Pain in left wrist; R60.0 Localized edema; R53.81 Other malaise; E66.01 Morbid (severe) obesity due to excess calories; K21.9 Gastro-esophageal reflux disease without esophagitis; I25.10 Atherosclerotic heart disease of native coronary artery without angina pectoris; Z95.5 Presence of coronary angioplasty implant and graft; I25.2 Old myocardial infarction; I10 Essential (primary) hypertension; Z86.73 Personal history of transient ischemic attack (TIA), and cerebral infarction without residual deficits; Z89.421 Acquired absence of other right toe(s); Z68.35 Body mass index [BMI] 35.0-35.9, adult
CPT/HCPCS: 99223-AI; 99232-AI; 99233-AI; 99239; A9502; J0690; J1644; J1650; J1815; J2270; J2785; J3475; J7030; J7060

== ENCOUNTER 2019-03-29 20:04 | Inpatient (IN) | payer MEDICARE ==
[2019-03-29] VITALS (51 sets, daily range): BP systolic 95; BP diastolic 60; PULSE 78; TEMP 98.5; O2SAT 90–99
[~2019-03-29] VITALS: Ht 203.2 cm; Wt 151.0 kg
[~2019-03-29 20:04] MED LIST changes: +BYSTOLIC5 MG PO; +INDOCIN50 MG PO; +ISOSORBIDE MON120 MG PO; +NOVLOG SQ; +TRULICITY0.75 MG/0. SQ; +ZESTRIL 5MG5 MG PO
[2019-03-29 20:46] LABS: HEMATOCRIT 47.1 % (42.0-52.0); HEMOGLOBIN 14.8 g/dl (13.5-18.0); MEAN CELL VOLUME 98 fl (80.0-100.0); MEAN CORPUSCULAR HEMOGLOBIN 31 pg (27.0-31.0); MEAN CORPUSCULAR HGB CONC 31 g/dl (33.0-37.0); MEAN PLATELET VOLUME 9.5 fl (7.4-10.4); PLATELET COUNT 313 K/mm3 (130-400); RED BLOOD COUNT 4.82 M/mm3 (4.20-5.60); REDCELL DISTRIBUTION WIDTH-CV 14.1 % (11.5-14.5)
[2019-03-29 20:59] LABS: ALANINE AMINOTRANSFERASE 39 U/L (21-72); ALKALINE PHOSPHATASE 64 U/L (50-136); ANION GAP 17 mmol/L (7-16); AST,SGOT 41 U/L (15-37); BILIRUBIN,TOTAL 0.5 mg/dL (0.0-1.0); BLOOD UREA NITROGEN 30 mg/dL (9-20); CALCIUM 9.5 mg/dL (8.4-10.2); CARBON DIOXIDE 18 mmol/L (22-30); CHLORIDE 107 mmol/L (98-107); CREATININE, serum 1.45 (0.66-1.25); GLUCOSE 155 mg/dL (74-106); POTASSIUM 3.8 mmol/L (3.4-5.0); SODIUM 142 mmol/L (137-145)
[2019-03-29 21:00] LABS: C-REACTIVE PROTEIN 0.5 mg/dL (0.0-0.9)
[2019-03-29 21:09] LABS: TROPONIN-I < 0.012 ng/mL (0.000-0.035)
[2019-03-29 21:15] LABS: ARTERIAL BLD GAS TCO2 CT 23.2; ARTERIAL BLOOD GAS BASE EXCESS -4.9 (-2-2); ARTERIAL BLOOD GAS HCO3 21.8 meq/L (22-26); ARTERIAL BLOOD GAS pH 7.29 (7.35-7.45)
[2019-03-29 21:18] LABS: ARTERIAL BLOOD GAS PO2 135.5 mmHg (80-100)
--- NOTE | 2019-03-29 22:36 | NUR ---
Telephone report received from PRISCILLA Tran.
[2019-03-29] MEDS ORDERED: LANTUS100 U/ML SQ (23:35)
[2019-03-30] VITALS (433 sets, daily range): BP systolic 101–152; BP diastolic 58–91; PULSE 78–105; TEMP 97.7–98.8; O2SAT 37–100
[2019-03-30] LABS: ARTERIAL BLOOD GAS HCO3 21.4 meq/L (22-26); ARTERIAL BLOOD GAS PCO2 41.1 mmHg (35-45); ARTERIAL BLOOD GAS PO2 86.9 mmHg (80-100); ARTERIAL BLOOD GAS pH 7.33 (7.35-7.45)
[2019-03-30 00:01] LABS: ARTERIAL BLD GAS O2 SATURATION 96.1 % (92-100); ARTERIAL BLOOD GAS BASE EXCESS -4.2 (-2-2)
[2019-03-30] MEDS ORDERED: ZYLOPRIM 100MG100 MG PO (00:26)
--- NOTE | 2019-03-30 01:10 | NUR ---
Assisted up to bathroom X 2 assist with gait belt. Gait slightly shuffling. Tolerated transfer well.
[2019-03-30 01:48] LABS: TROPONIN-I 0.013 ng/mL (0.000-0.035)
--- NOTE | 2019-03-30 02:21 | NUR ---
02 96% on 6L high flow. Titrated down to 5L to see how patient tolerates. Will continue to monitor.
[2019-03-30] MEDS ORDERED: INDOCIN50 MG PO (04:08)
--- NOTE | 2019-03-30 07:35 | NUR ---
Report received from Didi WELLS and care resumed.
[2019-03-30 07:50] LABS: HEMATOCRIT 38.5 % (42.0-52.0); MEAN CELL VOLUME 97 fl (80.0-100.0); MEAN CORPUSCULAR HEMOGLOBIN 31 pg (27.0-31.0); MEAN CORPUSCULAR HGB CONC 32 g/dl (33.0-37.0); PLATELET COUNT 228 K/mm3 (130-400); RED BLOOD COUNT 3.99 M/mm3 (4.20-5.60); REDCELL DISTRIBUTION WIDTH-CV 14.2 % (11.5-14.5)
--- NOTE | 2019-03-30 07:50 | NUR ---
Dr Jones in to see pt at this time.
[2019-03-30 07:53] LABS: HEMOGLOBIN 12.4 g/dl (13.5-18.0)
[2019-03-30 07:57] LABS: CREATININE, serum 1.71 (0.66-1.25); POTASSIUM 5.1 mmol/L (3.4-5.0)
[2019-03-30 09:03] LABS: GRAN % 68.7 % (42.2-75.2); LYMPH % 25.3 % (20.0-51.0); MONO % 4.3 % (1.7-9.3)
[2019-03-30 09:04] LABS: BASO % 0.1 % (0.0-2.0); EOS # 0.1 (0.0-0.7); EOS % 0.9 % (0-4.0); GRAN # 10.3 (1.4-6.5); LYMPH # 3.8 (1.2-3.4); MONO # 0.7 (0.1-0.6)
[2019-03-30 09:10] LABS: ANISOCYTOSIS 1+; BAND 3 % (0-10); HYPOCHROMIA 1+; LYMPHOCYTE 4 % (20.0-51.0); NEUTROPHILS 92 % (42.0-75.2); PLATELET ESTIMATE NORMAL (NORMAL)
[2019-03-30 09:13] LABS: ARTERIAL BLD GAS O2 SATURATION 94.6 % (92-100); ARTERIAL BLD GAS TCO2 CT 21.5; ARTERIAL BLOOD GAS BASE EXCESS -4.6 (-2-2); ARTERIAL BLOOD GAS HCO3 20.3 meq/L (22-26); ARTERIAL BLOOD GAS PCO2 37.3 mmHg (35-45); ARTERIAL BLOOD GAS PO2 79.5 mmHg (80-100); ARTERIAL BLOOD GAS pH 7.35 (7.35-7.45)
--- NOTE | 2019-03-30 14:48 | NUR ---
SW attended clinical rounding and met with patient to discuss discharge planning. Patient lives alone in [place] but his son, Stepan, also lives in [place]. Patients PCP is FRANK Mcgill and he obtains his medicaitons at health system. Patient uses a walker and does not have a DPOA completed but has been provided them in the past. PT is recommending home at this time however sw will continue to follow.
--- NOTE | 2019-03-30 15:40 | NUR ---
Critical troponin reported to Dr Simpson. Follow up labs received. Will continue to follow.
--- NOTE | 2019-03-30 16:56 | NUR ---
Report called to Angela WELLS on medical floor. Pt taken by wheelchair to room 310 with chart and belongings on tele box.
--- NOTE | 2019-03-30 17:30 | NUR ---
PATIENT IN ROOM. EATING DINNER. NO PAIN AT THIS TIME. IV FLUIDS INFUSING. LAB IN TO TAKE BLOOD. TELE ON, BUT UNABLE TO BE READ IN THE ICU AT THIS TIME. ATTEMPTED CHANGING PADS, BOXES, LINES, AND BATTERIES, BUT UNABLE TO GET IT TO WORK. TELE AWARE.
--- NOTE | 2019-03-30 18:59 | NUR ---
Report given to PRISCILLA Roach. Patient ate dinner and is up to the bathroom. IV patent and patient denies any other needs at this time. Call light within reach.
--- NOTE | 2019-03-30 21:16 | NUR ---
ANNETTE VELA NOTIFIED OF RESULTED TROPONIN. ORDERS RECEIVED FOR CARDIOLOGY CONSULT TO BE COMPLETED IN AM 03/31.
[2019-03-31] VITALS (7 sets, daily range): BP systolic 114–152; BP diastolic 58–78; PULSE 80–101; TEMP 97.7–98.2
--- NOTE | 2019-03-31 02:55 | NUR ---
PATIENT UP TO THE BATHROOM. REPORTS/OBSERVED TO BE SHORT OF BREATHE. ASSISTED BACK TO BED. GAIT STEADY WITHOUT ASSISTANCE OR DEVICE. DENIES C/O CHEST PAIN. A/O TO PERSON, PLACE, AND TIME WITH SOME CONFUSION. STATES "tHERE ARE 40 BIKERS HERE AN THEY ARE GOING TO GET ME". REPORTS BEING VERY ANXIOUS AND THAT HE FEELS LIKE IT IS HIS TIME TO GO. SEE FLOW SHEET FOR FVS OBTAINED. O2 2L/NC INITIATED WITH HUMIDIFICATION. RT NOTIFIED. NEBULIZER TREATENT GIVEN. ANNETTE VELA NOTIFIED. ORDERS RECEIVED FOR ABG NOW AND SHE WILL SEE PATIENT. RT NOTIFIED OF STAT ABG.
[2019-03-31 03:27] LABS: ARTERIAL BLD GAS O2 SATURATION 95.6 % (92-100); ARTERIAL BLD GAS TCO2 CT 21.3; ARTERIAL BLOOD GAS BASE EXCESS -3.7 (-2-2); ARTERIAL BLOOD GAS HCO3 20.3 meq/L (22-26); ARTERIAL BLOOD GAS PCO2 33.5 mmHg (35-45); ARTERIAL BLOOD GAS PO2 82.6 mmHg (80-100)
[2019-03-31 04:14] LABS: BASO % 0.1 % (0.0-2.0); GRAN # 16.5 (1.4-6.5); GRAN % 90.7 % (42.2-75.2); HEMOGLOBIN 11.5 g/dl (13.5-18.0); LYMPH # 0.8 (1.2-3.4); LYMPH % 4.3 % (20.0-51.0); MEAN CELL VOLUME 95 fl (80.0-100.0); MEAN CORPUSCULAR HEMOGLOBIN 31 pg (27.0-31.0); MEAN CORPUSCULAR HGB CONC 33 g/dl (33.0-37.0); MEAN PLATELET VOLUME 9.6 fl (7.4-10.4); MONO # 0.7 (0.1-0.6); MONO % 4.1 % (1.7-9.3); PLATELET COUNT 209 K/mm3 (130-400); RED BLOOD COUNT 3.72 M/mm3 (4.20-5.60); REDCELL DISTRIBUTION WIDTH-CV 14.3 % (11.5-14.5)
[2019-03-31 04:20] LABS: HEMATOCRIT 35.4 % (42.0-52.0)
[2019-03-31 04:21] LABS: CALCIUM 9.2 mg/dL (8.4-10.2); CREATININE, serum 1.18 (0.66-1.25); POTASSIUM 4.1 mmol/L (3.4-5.0)
[2019-03-31 04:38] LABS: TROPONIN-I 3.1 ng/mL (0.000-0.035)
--- NOTE | 2019-03-31 11:00 | NUR ---
PATIENT HAD ECHO COMPLETED THIS MORNING. MORNING MEDS HELD UNTIL CARDIOLOGY MET WITH PATIENT TO DISCUSS POC. PATIENT PLEASANT AND COPERATIVE WITH CARES. ONLY COMPLAINT WAS BEING HUNGRY. NPO STATUS AT THIS TIME. WILL NOTIFY PATIENT WHENEVER IS ABLE TO EAT. PLANNING ON A POSSIBLE LEXISCAN THIS AFTERNOON? DENIES ANY OTHER NEEDS AT THIS TIME. CALL LIGHT WITHIN REACH.
[2019-04-01] VITALS (10 sets, daily range): BP systolic 103–141; BP diastolic 58–66; PULSE 81–99; TEMP 98.5–98.9
[2019-04-01 06:49] LABS: BASO % 0.1 % (0.0-2.0); EOS % 0.1 % (0-4.0); GRAN # 13.2 (1.4-6.5); GRAN % 85.4 % (42.2-75.2); HEMOGLOBIN 10.9 g/dl (13.5-18.0); LYMPH # 1.2 (1.2-3.4); MEAN CELL VOLUME 97 fl (80.0-100.0); MEAN CORPUSCULAR HEMOGLOBIN 31 pg (27.0-31.0); MEAN CORPUSCULAR HGB CONC 32 g/dl (33.0-37.0); MEAN PLATELET VOLUME 9.8 fl (7.4-10.4); MONO # 0.9 (0.1-0.6); MONO % 5.7 % (1.7-9.3); PLATELET COUNT 216 K/mm3 (130-400); RED BLOOD COUNT 3.53 M/mm3 (4.20-5.60); REDCELL DISTRIBUTION WIDTH-CV 14.7 % (11.5-14.5)
[2019-04-01 06:58] LABS: CALCIUM 9.4 mg/dL (8.4-10.2); CREATININE, serum 0.84 (0.66-1.25); POTASSIUM 3.9 mmol/L (3.4-5.0)
[2019-04-01 06:59] LABS: HEMATOCRIT 34.1 % (42.0-52.0)
[2019-04-01 07:15] LABS: TROPONIN-I 9.85 ng/mL (0.000-0.035)
--- NOTE | 2019-04-01 07:36 | NUR ---
Patients troponin is elevated to 9.8. Notified hospitalist and paged Dr Villanueva. Getting an EKG at this time. Patient denies chest pain or increased shortness of breath. He is resting comfortably at this time.
--- NOTE | 2019-04-01 10:00 | NUR ---
Patient has been doing ok this morning. He is upset about not being able to eat. Explained that he is having a procedure and needs to wait until afterwards to eat. Cardiology has ordered a stress test. Patient continues to deny chest pain. No other changes at this time. Call light within reach.
--- NOTE | 2019-04-01 18:10 | NUR ---
Patient has been doing well today since his stress test. Continues to be without chest pain. No issues with hives or shortness of breath this shift. No other changes at this time. Call light within reach.
[2019-04-02 02:59] VITALS: BP 145/64; PULSE 75; TEMP 97.3
[2019-04-02 06:49] LABS: BASO % 0.1 % (0.0-2.0); EOS % 0.3 % (0-4.0); GRAN # 9.5 (1.4-6.5); GRAN % 76.6 % (42.2-75.2); HEMOGLOBIN 11.5 g/dl (13.5-18.0); LYMPH # 1.8 (1.2-3.4); LYMPH % 14.5 % (20.0-51.0); MEAN CELL VOLUME 96 fl (80.0-100.0); MEAN CORPUSCULAR HEMOGLOBIN 31 pg (27.0-31.0); MEAN CORPUSCULAR HGB CONC 32 g/dl (33.0-37.0); MEAN PLATELET VOLUME 9.8 fl (7.4-10.4); MONO # 0.9 (0.1-0.6); MONO % 7.6 % (1.7-9.3); PLATELET COUNT 224 K/mm3 (130-400); RED BLOOD COUNT 3.76 M/mm3 (4.20-5.60); REDCELL DISTRIBUTION WIDTH-CV 14.6 % (11.5-14.5)
[2019-04-02 07:01] LABS: CALCIUM 9.8 mg/dL (8.4-10.2); CREATININE, serum 0.87 (0.66-1.25); POTASSIUM 3.8 mmol/L (3.4-5.0)
[2019-04-02 07:31] VITALS: BP 134/60; PULSE 72; TEMP 97.9
--- NOTE | 2019-04-02 09:51 | NUR ---
Report received from PRISCILLA Roach. Patient sitting in bed, dressed, and anxious to discharge. IV patent, flushed. Vitals within normal limits. Patient denies pain. Ate breakfast. Denies any other needs at this time. Call light within reach.
[2019-04-02] MEDS ORDERED: CLARITIN 1010 MG/TAB PO (10:20)
[2019-04-02] MEDS ORDERED: IMDUR 60MG60 MG/TAB PO (10:21)
[2019-04-02] MEDS ORDERED: SINGULAIR 110 MG/TAB PO (10:21)
[2019-04-02] MEDS ORDERED: PREDNISONE10 MG PO (10:23)
--- NOTE | 2019-04-02 10:58 | NUR ---
Discharge instructions given to patient. IV removed, tip in tact. Educated on gout diet and lifestyle information in discharge packet. Denies any other questions or needs. Nursing staff escorted patient out of facility via wheelchair.
--- NOTE | 2019-04-02 11:20 | NUR ---
Patient discharged home today 04/02. SW unable to complete IM before discharge. Nurse reports patient ambulated in the halls without difficulty and did not require any services.
== END 2019-04-02 11:02 | disposition home or self-care (01) | DRG 916 ==
LOC: COL.ER 20:04 → ICU 21:38 → MEDICAL 21:38
PROVIDERS: Emergency Medicine; Internal Medicine Pulmonary Disease; Nurse Practitioner Family; Physician Assistant; ADMIT Student in an Organized Health Care Education/Training Program
DX: T88.6XXA Anaphylactic reaction due to adverse effect of correct drug or medicament properly administered, initial encounter (principal); I50.22 Chronic systolic (congestive) heart failure; N17.9 Acute kidney failure, unspecified; E87.2 Acidosis; T39.395A Adverse effect of other nonsteroidal anti-inflammatory drugs [NSAID], initial encounter; T50.4X5A Adverse effect of drugs affecting uric acid metabolism, initial encounter; Y84.8 Other medical procedures as the cause of abnormal reaction of the patient, or of later complication, without mention of misadventure at the time of the procedure; I11.0 Hypertensive heart disease with heart failure; E11.65 Type 2 diabetes mellitus with hyperglycemia; Y92.9 Unspecified place or not applicable; E78.5 Hyperlipidemia, unspecified; E66.01 Morbid (severe) obesity due to excess calories; E87.5 Hyperkalemia; M10.9 Gout, unspecified; K21.9 Gastro-esophageal reflux disease without esophagitis; I25.10 Atherosclerotic heart disease of native coronary artery without angina pectoris; I25.2 Old myocardial infarction; Z95.5 Presence of coronary angioplasty implant and graft; Z86.73 Personal history of transient ischemic attack (TIA), and cerebral infarction without residual deficits; Z86.14 Personal history of Methicillin resistant Staphylococcus aureus infection; Z87.891 Personal history of nicotine dependence; Z88.9 Allergy status to unspecified drugs, medicaments and biological substances
CPT/HCPCS: 99223-AI; 99231-AI; 99233-AI; 99239; A9500; J1200; J1644; J1815; J1940; J2785; J2930; J7030; J7512

== ENCOUNTER → 2019-04-24 | Outpatient (CLI) | payer MEDICARE ==
[~2019-04-24] MED LIST changes: +CLARITIN 1010 MG/TAB PO; +SINGULAIR 110 MG/TAB PO; +ZYLOPRIM 100MG100 MG PO
== END ==
LOC: COL.RAD 11:29
DX: J43.9 Emphysema, unspecified (principal); I25.10 Atherosclerotic heart disease of native coronary artery without angina pectoris; J84.10 Pulmonary fibrosis, unspecified; J98.4 Other disorders of lung

== ENCOUNTER → 2019-07-27 | Outpatient (CLI) | payer MEDICARE | LOC: COL.RAD 12:34 | DX: R22.1 Localized swelling, mass and lump, neck (principal) ==

== ENCOUNTER → 2019-08-28 | Outpatient (CLI) | payer MEDICARE | LOC: COL.RAD 08-21 09:45 | DX: E04.9 Nontoxic goiter, unspecified (principal) ==

== ENCOUNTER 2019-11-16 11:29 | Emergency (ER) | payer MEDICARE ==
[~2019-11-16] VITALS: Ht 203.2 cm; Wt 159.1 kg
[2019-11-16 11:46] VITALS: TEMP 96.2
[2019-11-16 12:56] LABS: BASO % 0.2 % (0.0-2.0); EOS # 0.2 (0.0-0.7); EOS % 1.8 % (0-4.0); GRAN # 10.5 (1.4-6.5); GRAN % 78.4 % (42.2-75.2); HEMATOCRIT 38.5 % (42.0-52.0); HEMOGLOBIN 12.3 g/dl (13.5-18.0); LYMPH # 1.5 (1.2-3.4); LYMPH % 11.2 % (20.0-51.0); MEAN CELL VOLUME 98 fl (80.0-100.0); MEAN CORPUSCULAR HEMOGLOBIN 31 pg (27.0-31.0); MEAN CORPUSCULAR HGB CONC 32 g/dl (33.0-37.0); MONO % 7.8 % (1.7-9.3); PLATELET COUNT 211 K/mm3 (130-400); RED BLOOD COUNT 3.94 M/mm3 (4.20-5.60); REDCELL DISTRIBUTION WIDTH-CV 13.5 % (11.5-14.5)
[2019-11-16 13:01] LABS: PROTHROMBIN TIME 11.7 SECONDS (9.7-12.8)
[2019-11-16 13:12] LABS: ALBUMIN 3.9 gm/dL (3.5-5.0); BILIRUBIN,TOTAL 0.6 mg/dL (0.0-1.0); CALCIUM 9.5 mg/dL (8.4-10.2); CREATININE, serum 1.05 (0.66-1.25); POTASSIUM 4.5 mmol/L (3.4-5.0); TOTAL PROTEIN 6.8 gm/dL (6.4-8.2)
[2019-11-16 13:22] LABS: TROPONIN-I 0.014 ng/mL (0.000-0.035)
[2019-11-16 13:38] LABS: COLLECTION METHOD CLEAN CATCH
[2019-11-16 13:43] LABS: MUCOUS Present /lpf; PH 5 (5-8); SQUAMOUS EPITHELIAL None Seen /hpf; URINE APPEARANCE Clear; URINE BACTERIA None Seen /hpf; URINE BILIRUBIN Negative (NEGATIVE); URINE BLOOD Negative (NEGATIVE); URINE COLOR Yellow; URINE GLUCOSE Negative (NEGATIVE); URINE KETONE Negative (NEGATIVE); URINE LEUKOCYTE ESTERASE Negative (NEGATIVE); URINE NITRATE Negative (NEGATIVE); URINE PROTEIN(semi-quant) Negative (NEGATIVE); URINE RBC 0-2 /hpf; URINE UROBILINOGEN Negative (NEGATIVE)
[2019-11-16] MEDS ORDERED: BACTRIM DS 8001 TAB PO ×2 (14:34)
[2019-11-16] MEDS ORDERED: CEPHALEXIN500 M1 PO (14:34)
[2019-11-16] MEDS ORDERED: ROXICODONE 55 MG/TAB PO ×2 (16:21→16:44)
[2019-11-16] MEDS ORDERED: NORCO 325 MG-51 TAB PO ×2 (16:59)
[2019-11-16 17:20] VITALS: BP 112/72; PULSE 79
== END 2019-11-16 17:20 | disposition home or self-care (01) ==
LOC: COL.ER 11:29
PROVIDERS: Emergency Medicine; Nurse Practitioner Primary Care
DX: L02.31 Cutaneous abscess of buttock (principal); B37.2 Candidiasis of skin and nail; R33.8 Other retention of urine; E11.9 Type 2 diabetes mellitus without complications; I25.10 Atherosclerotic heart disease of native coronary artery without angina pectoris; I11.0 Hypertensive heart disease with heart failure; I50.9 Heart failure, unspecified; I25.2 Old myocardial infarction; E78.5 Hyperlipidemia, unspecified; Z79.4 Long term (current) use of insulin; Z95.5 Presence of coronary angioplasty implant and graft; Z87.891 Personal history of nicotine dependence; Z79.52 Long term (current) use of systemic steroids; Z79.82 Long term (current) use of aspirin

== ENCOUNTER 2019-11-17 16:15 | Emergency (ER) | payer MEDICARE ==
[~2019-11-17] VITALS: Ht 203.2 cm; Wt 159.1 kg
[~2019-11-17 16:15] MED LIST changes: +BACTRIM DS 8001 TAB PO
[2019-11-17 16:36] VITALS: BP 114/67; TEMP 98.4
[2019-11-17 17:13] LABS: COLLECTION METHOD CATHETER
[2019-11-17 17:17] LABS: BASO # 0.1 (0.0-0.2); BASO % 0.4 % (0.0-2.0); EOS # 0.4 (0.0-0.7); EOS % 2.6 % (0-4.0); GRAN # 11.1 (1.4-6.5); GRAN % 78.1 % (42.2-75.2); HEMATOCRIT 39.4 % (42.0-52.0); HEMOGLOBIN 12.7 g/dl (13.5-18.0); LYMPH # 1.7 (1.2-3.4); LYMPH % 12.1 % (20.0-51.0); MEAN CELL VOLUME 96 fl (80.0-100.0); MEAN CORPUSCULAR HEMOGLOBIN 31 pg (27.0-31.0); MEAN CORPUSCULAR HGB CONC 32 g/dl (33.0-37.0); MEAN PLATELET VOLUME 9.6 fl (7.4-10.4); MONO # 0.9 (0.1-0.6); MONO % 6.4 % (1.7-9.3); PLATELET COUNT 220 K/mm3 (130-400); REDCELL DISTRIBUTION WIDTH-CV 13.5 % (11.5-14.5)
[2019-11-17 17:49] LABS: URINE APPEARANCE Turbid; URINE COLOR Red
[2019-11-17 17:50] LABS: PH 5 (5-8); URINE BILIRUBIN Negative (NEGATIVE); URINE GLUCOSE Negative (NEGATIVE); URINE KETONE Negative (NEGATIVE); URINE NITRATE Negative (NEGATIVE); URINE PROTEIN(semi-quant) 3+ (NEGATIVE); URINE UROBILINOGEN Negative (NEGATIVE)
[2019-11-17 17:51] LABS: URINE BLOOD 3+ (NEGATIVE); URINE LEUKOCYTE ESTERASE 1+ (NEGATIVE); URINE RBC >50 /hpf
[2019-11-17 17:52] LABS: MUCOUS Present /lpf; SQUAMOUS EPITHELIAL 0-2 /hpf
[2019-11-17 17:53] LABS: URINE BACTERIA None Seen /hpf
[2019-11-17 18:15] VITALS: PULSE 97
== END 2019-11-17 18:15 | disposition home or self-care (01) ==
LOC: COL.ER 16:15
PROVIDERS: Emergency Medicine
DX: R31.9 Hematuria, unspecified (principal); R33.9 Retention of urine, unspecified; I25.10 Atherosclerotic heart disease of native coronary artery without angina pectoris; E11.9 Type 2 diabetes mellitus without complications; I10 Essential (primary) hypertension; J44.9 Chronic obstructive pulmonary disease, unspecified; Z79.82 Long term (current) use of aspirin; Z79.4 Long term (current) use of insulin; Z95.5 Presence of coronary angioplasty implant and graft

== ENCOUNTER 2020-01-27 10:46 | Day surgery (SDC) | payer MEDICARE ==
[2020-01-27] VITALS (11 sets, daily range): BP systolic 105–135; BP diastolic 50–81; PULSE 63–97; TEMP 97.7–98.9
[~2020-01-27] VITALS: Ht 203.2 cm; Wt 336.7 kg
[2020-01-27] MEDS ORDERED: ASPIRIN 32325 MG/TAB PO (11:21)
[2020-01-27] MEDS ORDERED: TRULICITY1.5 MG/0.5 SQ (11:22)
[2020-01-27] MEDS ORDERED: IMDUR 60MG60 MG/TAB PO (11:24)
[2020-01-27] MEDS ORDERED: LANTUS100 U/ML SQ (12:17)
--- NOTE | 2020-01-27 14:00 | NUR ---
Patient up from OR. Drowsy but arouses to voice and touch. Denies pain at this time. CBI infusing at moderate rate with clear pink urine. Post op fluids infusing per orders, VSS. Denies further needs at this time. Will continue to monitor.
--- NOTE | 2020-01-27 18:43 | NUR ---
Patient has done well throughout this afternoon. Alert and oriented x 3. CBI continues infusing with clear pink urine in bag. Tolerating clear liquid diet, advanced to regular diet. Tolerating without difficulties. Denies pain or further needs at this time. Will report off to shift supervisor melting.
--- NOTE | 2020-01-27 19:25 | NUR ---
Received report from PRISCILLA Olivera. Pt is currently resting in bed.
--- NOTE | 2020-01-28 02:41 | NUR ---
Pt awake in bed. Pt stated that he wanted something for pain. pt was given pain medication at this time. CBI still running and IV fluids running. Pt is currently lying in bed and has his call light within reach. Pt did state that his nose was very dry from the air in the room but stated he does have this problem sometimes at home.
[2020-01-28 04:20] VITALS: BP 110/49; PULSE 83; TEMP 97.6
--- NOTE | 2020-01-28 07:12 | NUR ---
Pt slept pretty good last night. Pt did call out twice for somthing for pain. Pt CBI is still running. Urine looks pink tinged. Pt is currently sleeping in bed. Reported off to PRISCILLA Angeles.
[2020-01-28 08:07] VITALS: BP 112/69; PULSE 99; TEMP 98.2
--- NOTE | 2020-01-28 10:30 | NUR ---
Cabrales catheter discontinued at this time. Patient tolerated well. Primed bladder with 200mls of saline. Removed 30ml from cathater tubing and discontinued catheter without issues. Stat-lock removed from leg. Explained 6 cup routine with patient. No questions verbalized. No other changes at this time. Call light within reach.
[2020-01-28 10:57] VITALS: BP 111/62; PULSE 83; TEMP 98
--- NOTE | 2020-01-28 18:30 | NUR ---
Patient is discharging home. His son is picking him up. Discharge instructions discussed with patient. No questions verbalized. INT discontinued. Explained when follow up is. Copies of discharge instructions sent with patient. No questions verbalized. All belongings packed up and sent with patient. Patient walked out via wheel chair by Andrew GOLDBERG.
== END 2020-01-28 18:30 | disposition home or self-care (01) ==
LOC: SDCO 10:46 → SURG 14:17 → SDCO 01-28 18:30
DX: C61 Malignant neoplasm of prostate (principal); N13.8 Other obstructive and reflux uropathy; R33.9 Retention of urine, unspecified; I11.0 Hypertensive heart disease with heart failure; I50.20 Unspecified systolic (congestive) heart failure; E11.9 Type 2 diabetes mellitus without complications; E78.5 Hyperlipidemia, unspecified; I25.10 Atherosclerotic heart disease of native coronary artery without angina pectoris; K21.9 Gastro-esophageal reflux disease without esophagitis; M10.9 Gout, unspecified; Z95.5 Presence of coronary angioplasty implant and graft; Z79.82 Long term (current) use of aspirin; Z79.4 Long term (current) use of insulin; Z79.899 Other long term (current) drug therapy; Z86.73 Personal history of transient ischemic attack (TIA), and cerebral infarction without residual deficits; Z86.14 Personal history of Methicillin resistant Staphylococcus aureus infection; Z83.1 Family history of other infectious and parasitic diseases; Z84.89 Family history of other specified conditions; Z89.421 Acquired absence of other right toe(s); Z88.8 Allergy status to other drugs, medicaments and biological substances
CPT/HCPCS: OP; 99222; 99231-AI; J0690; J1100; J1815; J2405; J2704; J3010; J3480; J7030

== ENCOUNTER 2020-02-26 21:34 | Emergency (ER) | payer MEDICARE ==
[~2020-02-26] VITALS: Ht 203.2 cm; Wt 150.9 kg
[~2020-02-26 21:34] MED LIST changes: +ASPIRIN 32325 MG/TAB PO; +TRULICITY1.5 MG/0.5 SQ
[2020-02-26 21:39] VITALS: BP 131/74; PULSE 93; TEMP 98.4
[2020-02-26 22:42] LABS: BASO % 0.2 % (0.0-2.0); EOS # 0.2 (0.0-0.7); EOS % 1.3 % (0-4.0); GRAN # 10.6 (1.4-6.5); GRAN % 73.7 % (42.2-75.2); LYMPH # 2.6 (1.2-3.4); LYMPH % 17.7 % (20.0-51.0); MEAN CELL VOLUME 96 fl (80.0-100.0); MEAN CORPUSCULAR HEMOGLOBIN 30 pg (27.0-31.0); MEAN CORPUSCULAR HGB CONC 31 g/dl (33.0-37.0); MEAN PLATELET VOLUME 9.7 fl (7.4-10.4); MONO # 0.9 (0.1-0.6); MONO % 6.5 % (1.7-9.3); PLATELET COUNT 248 K/mm3 (130-400); RED BLOOD COUNT 3.66 M/mm3 (4.20-5.60); REDCELL DISTRIBUTION WIDTH-CV 14.1 % (11.5-14.5)
[2020-02-26 22:43] LABS: HEMATOCRIT 35.1 % (42.0-52.0)
[2020-02-26 23:02] LABS: ALBUMIN 3.8 gm/dL (3.5-5.0); BILIRUBIN,TOTAL 0.5 mg/dL (0.0-1.0); CALCIUM 9.3 mg/dL (8.4-10.2); CREATININE, serum 1.05 (0.66-1.25); POTASSIUM 4.5 mmol/L (3.4-5.0); TOTAL PROTEIN 6.9 gm/dL (6.4-8.2)
[2020-02-26] MEDS ORDERED: ASPIRIN 81M81 MG/TA2 PO (23:41)
[2020-02-26] MEDS ORDERED: CLARITIN 1010 MG/TAB PO (23:44)
== END 2020-02-26 23:10 | disposition other institution (70) ==
LOC: COL.ER 21:34
PROVIDERS: Emergency Medicine
DX: N99.820 Postprocedural hemorrhage of a genitourinary system organ or structure following a genitourinary system procedure (principal); I25.10 Atherosclerotic heart disease of native coronary artery without angina pectoris; Z98.890 Other specified postprocedural states; Z79.899 Other long term (current) drug therapy
CPT/HCPCS: J2270; J2405; J7030

== ENCOUNTER 2020-02-26 22:20 | Observation (INO) | payer MEDICARE ==
[~2020-02-26] VITALS: Ht 203.2 cm; Wt 147.3 kg
[2020-02-26 23:16] VITALS: BP 119/108; PULSE 89; TEMP 98
--- NOTE | 2020-02-26 23:19 | NUR ---
Pt arrived to the floor via stretcher. Pt was able to ambulate from the strecher to his bed. Pt stated that he was not having pain at this time. Pt has his call light within reach and his bed is in lowest position.
[2020-02-26] MEDS ORDERED: ASPIRIN 81M81 MG/TA2 PO (23:41)
[2020-02-26] MEDS ORDERED: CLARITIN 1010 MG/TAB PO (23:44)
[2020-02-26 23:58] VITALS: BP 126/89; PULSE 89; TEMP 97.8
--- NOTE | 2020-02-27 01:00 | NUR ---
Called Dr. Zuñiga at this time to get orders for patient. Pt has orders for CBI, and for continuious irrigation. also wanted to irrigate to see if we were able to get any clots out. Pt oliver was placed and there were no clots found during irrigation. Pt urine did start out red but quickly lighted up in the tube. Pt tolerated the catheter really well. After the placement pt stated that he needed something for pain. pt was given pain medciation at this time. Dr. Zuñiga was ok with pt eating so pt ate a pt tray within his pain medcaiton. He was worried about having nausea after taking the pain mediations. Pt has his call light within reach and his bed is in lowest position.
--- NOTE | 2020-02-27 02:35 | NUR ---
Pt is currently sleeping in bed. Pt CBI is still infusing. Pt ben[place] has pink tinged urine. Pt has his call light within reach and his bed is in lowest position.
[2020-02-27 04:26] VITALS: BP 123/64; PULSE 81; TEMP 97.8
--- NOTE | 2020-02-27 04:53 | NUR ---
Pt curretly sleeping in bed. Pt has his call light within reach and his bed is in lowest position.
--- NOTE | 2020-02-27 06:22 | NUR ---
Pt currently lying in bed. Pt requested something for pain. Pt was given pain medication at this time. Pt ate pudding with his medication to help with nausea. Pt has his call light within reach and his bed is in lowest position.
--- NOTE | 2020-02-27 07:30 | NUR ---
Reported off to PRISCILLA Rey. Pt currently sleeping in bed and has his call light within reach.
--- NOTE | 2020-02-27 07:33 | NUR ---
Reported off to PRISCILLA Christine. Pt currently sleeping in bed. Pt has his call light within reach.
[2020-02-27 09:25] VITALS: BP 124/51; PULSE 82; TEMP 98.2
[2020-02-27 12:15] VITALS: BP 127/56; PULSE 72; TEMP 97.6
[2020-02-27 16:20] VITALS: BP 122/57; PULSE 64; TEMP 97.7
--- NOTE | 2020-02-27 18:00 | NUR ---
No complaints. CBI infusing slowly. Cabrales draining large amounts yellow urine with occasional small clots.
[2020-02-27 19:58] VITALS: BP 109/55; PULSE 70; TEMP 97.9
--- NOTE | 2020-02-27 20:00 | NUR ---
At time of assessment, patient is awake in bed watching TV. He is alert and oriented, heart sounds regular/normal, lungs clear, pulses 2/2. Indwelling catheter in place is draining light yellow, clear urine. Patient complains of pain in catheter site and lower back; [place] administered with evening medications at this time. No edema is present but lower legs bilaterally have a dry, roel appearance. No new concerns, will continue to monitor.
[2020-02-27 22:54] VITALS: BP 116/52; PULSE 66; TEMP 98.2
[2020-02-28 03:58] VITALS: BP 108/53; PULSE 79; TEMP 97.5
--- NOTE | 2020-02-28 06:32 | NUR ---
Patient has had a restful night. CBI was clamped tonight due to urine output being yellow and clear, with the exception of one small blood clot. This morning it still appears to be normal urine output. He has complained of pain at the tip of his penis and lower back throughout the night, which has been managed with PO pain medication. He has had one liquid bowel movement of medium size. No new concerns at this time.
[2020-02-28 07:35] VITALS: BP 106/46; PULSE 75; TEMP 98.6
[2020-02-28 12:10] VITALS: BP 111/51; PULSE 61
--- NOTE | 2020-02-28 12:42 | NUR ---
Plan:To return home. Patient did indicated having his son Uche [phone] who lives in [facility], however patient indicated that he has four children to take care of. Patient reports that he does not have a DPOA and declined one at t his time. Patient resides in [facility]. Assess: SW met with patient at his bedside. Patient reports that he does utilize a walker, and that his PCP is Dr. Crawford with no upcoming appointments. Patient reports that he gets his medications from [facility] with no concerns. Patient reports that he already receives [facility] through [facility]. plan: To return home and continue to receive care with [facility]. no additional concerns identified at this time.
--- NOTE | 2020-02-28 14:00 | NUR ---
Dr. Zuñiga saw patient. Catheter primed and pulled at 0900. Voided large amounts clear yellow urine without difficulty. No complaints. Home instructions reviewed. Verbalized understanding to hold blood thinner med x 2 weeks. Dismissed to home with son.
== END 2020-02-28 14:00 | disposition home or self-care (01) ==
LOC: SURG 22:20
PROVIDERS: ADMIT Urology
DX: R31.0 Gross hematuria (principal); Z95.5 Presence of coronary angioplasty implant and graft; Z86.14 Personal history of Methicillin resistant Staphylococcus aureus infection; Z79.82 Long term (current) use of aspirin; Z79.899 Other long term (current) drug therapy; Z88.8 Allergy status to other drugs, medicaments and biological substances; Z90.79 Acquired absence of other genital organ(s)
CPT/HCPCS: G0378; J1815

== ENCOUNTER 2020-03-14 11:18 | Observation (INO) | payer MEDICARE ==
[~2020-03-14] VITALS: Ht 203.2 cm; Wt 137.9 kg
[2020-03-14] MEDS ORDERED: ASPIRIN 81M81 MG/TA2 PO (11:41)
[2020-03-14] MEDS ORDERED: BRILINTA90 MG (11:42)
[2020-03-14 12:13] LABS: BASO % 0.2 % (0.0-2.0); EOS # 0.2 (0.0-0.7); EOS % 2.2 % (0-4.0); GRAN # 6.9 (1.4-6.5); GRAN % 72.9 % (42.2-75.2); HEMOGLOBIN 11.1 g/dl (13.5-18.0); LYMPH # 1.6 (1.2-3.4); LYMPH % 16.5 % (20.0-51.0); MEAN CELL VOLUME 93 fl (80.0-100.0); MEAN CORPUSCULAR HEMOGLOBIN 29 pg (27.0-31.0); MEAN CORPUSCULAR HGB CONC 31 g/dl (33.0-37.0); MEAN PLATELET VOLUME 9.9 fl (7.4-10.4); MONO # 0.8 (0.1-0.6); MONO % 7.9 % (1.7-9.3); PLATELET COUNT 255 K/mm3 (130-400); RED BLOOD COUNT 3.82 M/mm3 (4.20-5.60); REDCELL DISTRIBUTION WIDTH-CV 13.9 % (11.5-14.5)
[2020-03-14 12:16] LABS: HEMATOCRIT 35.5 % (42.0-52.0)
[2020-03-14 12:21] LABS: ALBUMIN 3.9 gm/dL (3.5-5.0); BILIRUBIN,TOTAL 0.5 mg/dL (0.0-1.0); CALCIUM 9.8 mg/dL (8.4-10.2); CREATININE, serum 0.99 (0.66-1.25); TOTAL PROTEIN 7.1 gm/dL (6.4-8.2)
[2020-03-14 12:25] LABS: PROTHROMBIN TIME 11.4 SECONDS (9.7-12.8)
[2020-03-14 12:28] LABS: PARTIAL THROMBOPLASTIN TIME 29.6 SECONDS (26.0-37.0)
[2020-03-14 12:32] LABS: TROPONIN-I 0.021 ng/mL (0.000-0.035)
[2020-03-14 18:00] VITALS: BP 133/53; PULSE 83; TEMP 98.3
--- NOTE | 2020-03-14 18:00 | NUR ---
Pt arrived to floor at this time via w/c with ER staff. Able to ambulate to bathroom ad khari, denies needs, will orient to room and complete assessment.
--- NOTE | 2020-03-14 18:32 | NUR ---
Assessment completed. Called Luisa to notify of arrival and completion of med rec and he states he is not taking this patient that he knows of, called Shirley and left regarding pt. Bedside shift report given to nightshift nurse who will resume care.
[2020-03-14 20:38] VITALS: BP 126/58; PULSE 80; TEMP 98.7
--- NOTE | 2020-03-14 21:00 | NUR ---
Assessment complete. Resting in bed, watching television. Discussed NPO at MA. Voiced understanding. Denies needs at this time.
[2020-03-15] VITALS (10 sets, daily range): BP systolic 98–150; BP diastolic 50–74; PULSE 73–89; TEMP 97.9–98.5
[2020-03-15 06:55] LABS: CALCIUM 9.6 mg/dL (8.4-10.2); CHOLESTEROL RISK RATIO 5.3; CREATININE, serum 1.15 (0.66-1.25); POTASSIUM 4.1 mmol/L (3.4-5.0)
[2020-03-15 07:00] LABS: BASO % 0.3 % (0.0-2.0); EOS # 0.3 (0.0-0.7); EOS % 2.7 % (0-4.0); GRAN # 6.8 (1.4-6.5); HEMOGLOBIN 10.9 g/dl (13.5-18.0); LYMPH # 1.6 (1.2-3.4); LYMPH % 16.9 % (20.0-51.0); MEAN CELL VOLUME 93 fl (80.0-100.0); MEAN CORPUSCULAR HEMOGLOBIN 29 pg (27.0-31.0); MEAN CORPUSCULAR HGB CONC 31 g/dl (33.0-37.0); MEAN PLATELET VOLUME 10.1 fl (7.4-10.4); MONO # 0.7 (0.1-0.6); MONO % 7.8 % (1.7-9.3); PLATELET COUNT 271 K/mm3 (130-400); RED BLOOD COUNT 3.73 M/mm3 (4.20-5.60); REDCELL DISTRIBUTION WIDTH-CV 13.9 % (11.5-14.5)
[2020-03-15 07:02] LABS: HEMATOCRIT 34.7 % (42.0-52.0)
[2020-03-15 07:05] LABS: TROPONIN-I 0.023 ng/mL (0.000-0.035)
--- NOTE | 2020-03-15 09:00 | NUR ---
patient is being taken down to [facility] for stress test at this time
--- NOTE | 2020-03-15 10:29 | NUR ---
SW met with patient to complete intake. Patient resides in [place] alone. Patient states that his does not have any local people for support, but he does talk to his sister every now and then, Diesa [phone]. Patient states that he utilizes a walker and is independent with ADL's. Patient states his PCP is Noemi Crawford, he obtains his medications from [facility] and states that he is able to afford his medications. Patient states that he does not have a DPOA- and does not wish to appoint anyone at this time. Patient provides that he would like time to think about who whe would like to appoint. Patient states that he utilizes [facility] for home health services and they come to his home every Saturday and . He provides that he would like to continue utilizing their services. SW contacted [facility] to confirm services. Swati from [facility] stated that the patient obtains intermediate services 2x's per week. SW to fax updates to [facility]. SW will continue to follow.
--- NOTE | 2020-03-15 15:49 | NUR ---
The patient is to discharge back home today 03/15/2020 with home health services for fci from [facility]. SW contacted and faxed orders to [facility]. No addtional needs at this time.
--- NOTE | 2020-03-15 16:31 | NUR ---
Discharge instructions discussed with the patient, instructed to follow up with Cardiology as scheduled for him, and to follow up with PCP ( patient stated he would make his own appointment), IV and tele removed, instructed him to stop his Brillinta and continue all other previous home meds, leaving with his son, I escorted him out the door by wheelchair
== END 2020-03-15 16:33 | disposition home or self-care (01) ==
LOC: COL.ER 11:18 → MEDICAL 13:34 → SURG 03-15 10:59 → MEDICAL 03-15 11:04
PROVIDERS: Emergency Medicine; ADMIT Hospitalist
DX: R07.89 Other chest pain (principal); I11.0 Hypertensive heart disease with heart failure; I50.20 Unspecified systolic (congestive) heart failure; I25.10 Atherosclerotic heart disease of native coronary artery without angina pectoris; E11.9 Type 2 diabetes mellitus without complications; N40.0 Benign prostatic hyperplasia without lower urinary tract symptoms; M10.9 Gout, unspecified; K21.9 Gastro-esophageal reflux disease without esophagitis; E78.5 Hyperlipidemia, unspecified; Z86.73 Personal history of transient ischemic attack (TIA), and cerebral infarction without residual deficits; Z95.5 Presence of coronary angioplasty implant and graft; Z88.1 Allergy status to other antibiotic agents; Z79.4 Long term (current) use of insulin; Z79.82 Long term (current) use of aspirin; Z79.84 Long term (current) use of oral hypoglycemic drugs; Z87.891 Personal history of nicotine dependence
CPT/HCPCS: A9500; G0378; J1650; J1815; J2785

== ENCOUNTER 2020-09-12 10:10 | Observation (INO) | payer MEDICARE ==
[2020-09-12] VITALS (11 sets, daily range): BP systolic 121–151; BP diastolic 46–97; PULSE 69–85; TEMP 97.2–98.5
[~2020-09-12] VITALS: Ht 203.2 cm; Wt 156.0 kg
[~2020-09-12 10:10] MED LIST changes: +BRILINTA90 MG
[2020-09-12 10:37] LABS: BASO % 0.4 % (0.0-2.0); EOS # 0.2 (0.0-0.7); GRAN # 6.8 (1.4-6.5); GRAN % 72.8 % (42.2-75.2); HEMOGLOBIN 10.8 g/dl (13.5-18.0); LYMPH # 1.6 (1.2-3.4); LYMPH % 16.6 % (20.0-51.0); MEAN CELL VOLUME 85 fl (80.0-100.0); MEAN CORPUSCULAR HEMOGLOBIN 26 pg (27.0-31.0); MEAN CORPUSCULAR HGB CONC 31 g/dl (33.0-37.0); MEAN PLATELET VOLUME 10.2 fl (7.4-10.4); MONO # 0.7 (0.1-0.6); MONO % 7.9 % (1.7-9.3); PLATELET COUNT 214 K/mm3 (130-400); RED BLOOD COUNT 4.09 M/mm3 (4.20-5.60); REDCELL DISTRIBUTION WIDTH-CV 15.3 % (11.5-14.5)
[2020-09-12 10:38] LABS: HEMATOCRIT 34.9 % (42.0-52.0)
[2020-09-12 10:55] LABS: ALBUMIN 3.7 gm/dL (3.5-5.0); BILIRUBIN,TOTAL 0.4 mg/dL (0.0-1.0); CALCIUM 9.5 mg/dL (8.4-10.2); CREATININE, serum 0.94 (0.66-1.25); POTASSIUM 4.3 mmol/L (3.4-5.0); TOTAL PROTEIN 6.5 gm/dL (6.4-8.2)
[2020-09-12 11:54] LABS: TROPONIN-I 0.063 ng/mL (0.000-0.035)
[2020-09-12 12:39] LABS: INR 1.1 (0.8-3.0); PROTHROMBIN TIME 11.9 SECONDS (9.7-12.8)
[2020-09-12 12:41] LABS: PARTIAL THROMBOPLASTIN TIME 30.3 SECONDS (26.0-37.0)
[2020-09-12] MEDS ORDERED: HUMALOG100 U/ML SQ (13:02)
--- NOTE | 2020-09-12 15:04 | NUR ---
SEE MERGE FOR ALL MEDICATION ADMIN TIMES, INTRA AND POST SEDATION ASSESSMENTS
--- NOTE | 2020-09-12 15:45 | NUR ---
PATIENT ARRIVED POST-OP FROM CARDIAC CATH. PATIENT IS AWAKE. POST-OP VSS. TR BAND TO RIGHT RADIAL SITE IS CD&I. POSITIVE RADIAL PULSES EQUAL BILATERALLY. CALL LIGHT IN REACH. WILL CONTINUE TO MONITOR.
--- NOTE | 2020-09-12 17:33 | NUR ---
5MLS OF AIR RELEASED FROM TR BAND PER ORDERS. IMMEDIATE BLEEDING FROM UNDERNEATH TR BAND AT RIGHT RADIAL PUNCTURE SITE NOTED. 5MLS OF AIR PUSHED BACK INTO TR BAND. WILL CONTINUE TO MONITOR. PATIENT ADMISSION ASSESSMENT COMPLETED AT THIS TIME. POST-OP VSS. CALL LIGHT WITHIN REACH.
--- NOTE | 2020-09-12 19:08 | NUR ---
PATIENT REPORT GIVEN TO PRISCILLA CARR. ALL AIR RELEASED FROM TR BAND. BANDAID IN PLACE OVER RIGHT RADIAL SITE. SPLINT BOARD IN PLACE. PATIENT STILL ON POST-OP MONITORING. VSS. PATIENT TOLERATING DIET WITHOUT DIFFICULTIES. NO COMPLAINTS OF PAIN AT THIS TIME. CALL LIGHT IN REACH. PATIENT EATING DINNER TRAY AT THIS TIME.
--- NOTE | 2020-09-12 19:30 | NUR ---
Resting in bed. Assessment complete. Lungs clear. Heart sounds normal. Bowels active x4. Pulses present throughout. Bilateral lower ext edema +1. INT left wrist without complications. Denies pain. Denies needs at this time. Right radial site CDI. Covered with bandaide. Will monitor.
--- NOTE | 2020-09-12 20:47 | NUR ---
Patient fluid orders clarified with Dr. Pagan. Patient has orders for 1/2 NS at 50ml/hr and 100ml/hr. Patient also taking lasix 30mg BID. Per Dr. Pagan okay to discontinue fluids.
--- NOTE | 2020-09-12 20:51 | NUR ---
Patient would like something to aide with sleep. Also holding scheduled levemir due to blood sugar after dinner 108. Milli MÁRQUEZ notified. Orders added.
--- NOTE | 2020-09-12 23:18 | NUR ---
Right radial site CDI. Denies pain. Reports "in a fog." VS stable. Will check blood sugar.
[2020-09-13 03:32] VITALS: BP 136/63; PULSE 81; TEMP 98.4
--- NOTE | 2020-09-13 06:29 | NUR ---
Patient had uneventful night. Resting in bed this AM. Call light in reach. Right radial site remained CDI throughout night.
--- NOTE | 2020-09-13 07:04 | NUR ---
Report given to PRISCILLA Jaramillo
[2020-09-13 08:00] VITALS: BP 152/62; PULSE 77; TEMP 98.1
[2020-09-13] MEDS ORDERED: NITROSTAT0.4 MG/TAB SL (09:07)
[2020-09-13 09:25] LABS: HEMOGLOBIN 10.9 g/dl (13.5-18.0); MEAN CELL VOLUME 85 fl (80.0-100.0); MEAN CORPUSCULAR HEMOGLOBIN 27 pg (27.0-31.0); MEAN CORPUSCULAR HGB CONC 31 g/dl (33.0-37.0); MEAN PLATELET VOLUME 10.6 fl (7.4-10.4); PLATELET COUNT 208 K/mm3 (130-400); RED BLOOD COUNT 4.09 M/mm3 (4.20-5.60); REDCELL DISTRIBUTION WIDTH-CV 15.5 % (11.5-14.5)
[2020-09-13 09:29] LABS: HEMATOCRIT 34.9 % (42.0-52.0)
[2020-09-13 09:34] LABS: CALCIUM 9.4 mg/dL (8.4-10.2); CREATININE, serum 0.98 (0.66-1.25); POTASSIUM 4.8 mmol/L (3.4-5.0)
[2020-09-13 09:51] LABS: TROPONIN-I 0.059 ng/mL (0.000-0.035)
--- NOTE | 2020-09-13 11:15 | NUR ---
First visit from the key cutter. No needs right now.
--- NOTE | 2020-09-13 11:16 | NUR ---
MARTHA met with the patient to discuss discharge plan. The patient lives alone in [place]. He states that his son, Stepan (ph#[phone]), also lives in [place]. He reports independence with ADLs and has a walker. He also has home health services from [facility]. MARTHA contacted and faxed updates to Swati at [facility]. Swati confirms that they provide fdc to the patient. The patient's primary care provider is FRANK Meneses and he [facility]. He reports no difficulties obtaining his meds. The patient does not have a DPOA-HC and he was not interested in completing a DPOA-HC at this time. The patient states that he is not and that he has one child: Stepan. The patient plans to return home and resume home health services from [facility] upon discharge. The patient is to tentatively d/c today.
[2020-09-13] MEDS ORDERED: IMDUR 60MG60 MG/TAB PO (11:43)
[2020-09-13] MEDS ORDERED: PLAVIX 75MG TAB75 MG PO (11:43)
[2020-09-13 11:48] VITALS: BP 119/88; PULSE 66; TEMP 98.3
--- NOTE | 2020-09-13 13:07 | NUR ---
Discharge instructions reviewed with patient, verbalized understanding. Discharged via wheelchair to auto/home with family at 1305.
--- NOTE | 2020-09-13 13:27 | NUR ---
The patient discharged back home today, 09/13, with home health services for half-way from [facility]. SW faxed the patient's d/c orders to [facility]. No additional needs at this time.
== END 2020-09-13 13:05 | disposition home or self-care (01) ==
LOC: COL.ER 10:10 → SURG 12:23
PROVIDERS: Nurse Practitioner; Physician Assistant; ADMIT Hospitalist
DX: I25.10 Atherosclerotic heart disease of native coronary artery without angina pectoris (principal); Z95.5 Presence of coronary angioplasty implant and graft; I11.0 Hypertensive heart disease with heart failure; I50.22 Chronic systolic (congestive) heart failure; E11.9 Type 2 diabetes mellitus without complications; Z86.73 Personal history of transient ischemic attack (TIA), and cerebral infarction without residual deficits; K21.9 Gastro-esophageal reflux disease without esophagitis; M10.9 Gout, unspecified; E78.5 Hyperlipidemia, unspecified; N40.0 Benign prostatic hyperplasia without lower urinary tract symptoms; Z88.1 Allergy status to other antibiotic agents; Z20.822 Contact with and (suspected) exposure to COVID-19; Z79.4 Long term (current) use of insulin; Z79.82 Long term (current) use of aspirin; Z87.891 Personal history of nicotine dependence
CPT/HCPCS: G0378; J1644; J1815; J2250; J3010; Q9967

== ENCOUNTER → 2021-01-02 | Outpatient (CLI) | payer MEDICARE ==
[~2021-01-02] MED LIST changes: +HUMALOG100 U/ML SQ; +LASIX 40MG TABL40 MG PO; +NATURAL IRON65 MG; +NOVOLOG FLEX100 U/ML SQ; +OMNICEF 300MG300 MG PO; +OZEMPIC0.25 MG/0. SQ; +PRINIVIL5 MG PO; +ZYLOPRIM 300MG300 MG PO
== END ==
LOC: CANPRECLI → ZCOL.LAB 10:47
DX: E11.9 Type 2 diabetes mellitus without complications (principal)

== ENCOUNTER 2021-01-27 09:24 | Emergency (ER) | payer MEDICARE ==
[~2021-01-27] VITALS: Ht 200.7 cm; Wt 140.9 kg
[~2021-01-27 09:24] MED LIST changes: -LASIX 40MG TABL40 MG PO; -NATURAL IRON65 MG; -NOVOLOG FLEX100 U/ML SQ; -OMNICEF 300MG300 MG PO; -OZEMPIC0.25 MG/0. SQ; -PRINIVIL5 MG PO; -ZYLOPRIM 300MG300 MG PO
[2021-01-27 09:54] LABS: BASO % 0.4 % (0.0-2.0); EOS # 0.4 (0.0-0.7); EOS % 3.9 % (0-4.0); GRAN # 7.6 (1.4-6.5); GRAN % 72.7 % (42.2-75.2); HEMATOCRIT 38.3 % (42.0-52.0); HEMOGLOBIN 11.9 g/dl (13.5-18.0); LYMPH # 1.7 (1.2-3.4); LYMPH % 15.8 % (20.0-51.0); MEAN CELL VOLUME 89 fl (80.0-100.0); MEAN CORPUSCULAR HEMOGLOBIN 28 pg (27.0-31.0); MEAN CORPUSCULAR HGB CONC 31 g/dl (33.0-37.0); MONO # 0.7 (0.1-0.6); MONO % 6.8 % (1.7-9.3); PLATELET COUNT 205 K/mm3 (130-400); RED BLOOD COUNT 4.32 M/mm3 (4.20-5.60)
[2021-01-27 10:03] LABS: ALBUMIN 3.7 gm/dL (3.5-5.0); BILIRUBIN,TOTAL 0.3 mg/dL (0.0-1.0); CALCIUM 9.6 mg/dL (8.4-10.2); CREATININE, serum 0.99 (0.66-1.25); POTASSIUM 4.6 mmol/L (3.4-5.0); TOTAL PROTEIN 6.5 gm/dL (6.4-8.2)
[2021-01-27 10:14] LABS: TROPONIN-I 0.019 ng/mL (0.000-0.035)
[2021-01-27 11:19] LABS: PROTHROMBIN TIME 11.3 SECONDS (9.7-12.8)
[2021-01-27 11:22] LABS: PARTIAL THROMBOPLASTIN TIME 27.3 SECONDS (26.0-37.0)
[2021-01-27 14:15] VITALS: BP 123/61; PULSE 79; TEMP 98.5
== END 2021-01-27 14:15 | disposition home or self-care (01) ==
LOC: COL.ER 09:24
PROVIDERS: Emergency Medicine
DX: R06.02 Shortness of breath (principal); I25.10 Atherosclerotic heart disease of native coronary artery without angina pectoris; E11.9 Type 2 diabetes mellitus without complications; M10.9 Gout, unspecified; I10 Essential (primary) hypertension; E78.5 Hyperlipidemia, unspecified; K21.9 Gastro-esophageal reflux disease without esophagitis; Z86.73 Personal history of transient ischemic attack (TIA), and cerebral infarction without residual deficits; Z95.9 Presence of cardiac and vascular implant and graft, unspecified; Z88.6 Allergy status to analgesic agent; Z79.02 Long term (current) use of antithrombotics/antiplatelets; Z79.4 Long term (current) use of insulin; Z79.899 Other long term (current) drug therapy; Z79.82 Long term (current) use of aspirin
CPT/HCPCS: Q9967

== ENCOUNTER 2021-02-23 14:28 | Day surgery (SDC) | payer MEDICARE ==
[~2021-02-23] VITALS: Ht 203.2 cm; Wt 144.8 kg
[2021-02-23 14:47] VITALS: BP 131/70; PULSE 92; TEMP 97.9
--- NOTE | 2021-02-23 15:00 | NUR ---
Patient to room 350 by wheelchair from admissions. Patient A&Ox4. VSS. Nurse oriented the patient to location, room and call light. Denies pain and discomfort. No further needs expressed from the patient. Call light within reach
--- NOTE | 2021-02-23 17:34 | NUR ---
Patient sitting up in bed eating dinner. Has been intermittently sleeping, easily awakened with verbal command. VSS. IV CDI. Denies pain and discomfort. No further needs expressed from the patient. Call light within reach
[2021-02-23 19:26] VITALS: BP 124/63; PULSE 80; TEMP 98
--- NOTE | 2021-02-23 22:52 | NUR ---
MR Robles is doing great drinking the prep. He half way already. VVS will continue to monitor.
[2021-02-23 23:36] VITALS: BP 117/60; PULSE 78; TEMP 98.2
[2021-02-24] VITALS (8 sets, daily range): BP systolic 115–139; BP diastolic 50–78; PULSE 71–91; TEMP 97.3–98.6
--- NOTE | 2021-02-24 06:18 | NUR ---
Pt still has a full cup was prep at bedside and his stool has chunks in it. Pt stated that he told the DR that it takes him 16 hrs to digest anything. I encourage him to continue drinking. Will continue to monitor.
--- NOTE | 2021-02-24 08:31 | NUR ---
Patient down to endoscopy by bed.
--- NOTE | 2021-02-24 09:45 | NUR ---
Patient up from endoscopy, ambulated from cart to bed with SBA, steady gait. VSS. Denies needs at this time.
--- NOTE | 2021-02-24 12:00 | NUR ---
Patient concerned after BM, states he had small amount of bloody stool. Notified Soumya MARIE, patient ok to discharge. Discharge education provided to patient. Educated on follow up appointments and when to call provider. All questions answered. INT discontinued cathter tip intact. Denies further needs at this time.
--- NOTE | 2021-02-24 12:15 | NUR ---
Patient refusing accucheck prior to discharge, patient out by wheelchair with surgical staff.
[2021-02-24] MEDS ORDERED: ZYLOPRIM 300MG300 MG PO (19:40)
[2021-02-24] MEDS ORDERED: LASIX 40MG TABL40 MG PO (19:42)
[2021-02-24] MEDS ORDERED: IMDUR 60MG60 MG/TAB PO (19:43)
[2021-02-24] MEDS ORDERED: PRINIVIL5 MG PO (19:45)
[2021-02-24] MEDS ORDERED: NATURAL IRON65 MG (19:45)
[2021-02-24] MEDS ORDERED: NOVOLOG FLEX100 U/ML SQ (23:42)
[2021-02-24] MEDS ORDERED: NOVOLOG 100U100 U/M1 SQ (23:42)
[2021-02-24] MEDS ORDERED: OZEMPIC0.25 MG/0. SQ (23:43)
[2021-08-09] MEDS ORDERED: OZEMPIC0.25 MG/0. SQ (11:55)
[2021-08-09] MEDS ORDERED: DIFLUCAN 100MG100 MG (12:01)
[2021-08-09] MEDS ORDERED: NYSTATIN POWDER15 GM TOP (12:02)
== END 2021-02-24 12:15 | disposition home or self-care (01) ==
LOC: SDCO 14:28 → SURG 14:28 → SDCO 02-24 08:00
DX: D12.3 Benign neoplasm of transverse colon (principal); D12.5 Benign neoplasm of sigmoid colon; D12.2 Benign neoplasm of ascending colon; K57.30 Diverticulosis of large intestine without perforation or abscess without bleeding; K92.1 Melena; K22.2 Esophageal obstruction; K44.9 Diaphragmatic hernia without obstruction or gangrene; I11.0 Hypertensive heart disease with heart failure; E11.9 Type 2 diabetes mellitus without complications; I50.20 Unspecified systolic (congestive) heart failure; I25.10 Atherosclerotic heart disease of native coronary artery without angina pectoris; K21.9 Gastro-esophageal reflux disease without esophagitis; M10.9 Gout, unspecified; E78.5 Hyperlipidemia, unspecified; N40.0 Benign prostatic hyperplasia without lower urinary tract symptoms; Z79.82 Long term (current) use of aspirin; Z79.4 Long term (current) use of insulin; Z79.02 Long term (current) use of antithrombotics/antiplatelets; Z86.73 Personal history of transient ischemic attack (TIA), and cerebral infarction without residual deficits; J44.9 Chronic obstructive pulmonary disease, unspecified; I25.2 Old myocardial infarction; Z87.891 Personal history of nicotine dependence
CPT/HCPCS: OP; G0378; J1815; J2704; J7030

== ENCOUNTER 2021-02-24 18:44 | Observation (INO) | payer MEDICARE ==
[~2021-02-24] VITALS: Ht 188 cm; Wt 148.0 kg
[2021-02-24 19:07] LABS: BASO % 0.3 % (0.0-2.0); EOS # 0.4 (0.0-0.7); EOS % 3.4 % (0-4.0); GRAN # 9.3 (1.4-6.5); GRAN % 77.9 % (42.2-75.2); HEMATOCRIT 41.2 % (42.0-52.0); HEMOGLOBIN 12.7 g/dl (13.5-18.0); LYMPH # 1.4 (1.2-3.4); LYMPH % 11.4 % (20.0-51.0); MEAN CELL VOLUME 92 fl (80.0-100.0); MEAN CORPUSCULAR HEMOGLOBIN 28 pg (27.0-31.0); MEAN CORPUSCULAR HGB CONC 31 g/dl (33.0-37.0); MEAN PLATELET VOLUME 9.9 fl (7.4-10.4); MONO # 0.8 (0.1-0.6); MONO % 6.7 % (1.7-9.3); PLATELET COUNT 205 K/mm3 (130-400); REDCELL DISTRIBUTION WIDTH-CV 16.6 % (11.5-14.5)
[2021-02-24 19:15] LABS: PROTHROMBIN TIME 11.4 SECONDS (9.7-12.8)
[2021-02-24 19:17] LABS: ALBUMIN 3.8 gm/dL (3.5-5.0); BILIRUBIN,TOTAL 0.2 mg/dL (0.0-1.0); CALCIUM 9.5 mg/dL (8.4-10.2); CREATININE, serum 1.21 (0.66-1.25); PARTIAL THROMBOPLASTIN TIME 29.7 SECONDS (26.0-37.0); POTASSIUM 4.9 mmol/L (3.4-5.0); TOTAL PROTEIN 6.9 gm/dL (6.4-8.2)
[2021-02-24] MEDS ORDERED: ZYLOPRIM 300MG300 MG PO (19:40)
[2021-02-24] MEDS ORDERED: LASIX 40MG TABL40 MG PO (19:42)
[2021-02-24] MEDS ORDERED: IMDUR 60MG60 MG/TAB PO (19:43)
[2021-02-24] MEDS ORDERED: PRINIVIL5 MG PO (19:45)
[2021-02-24] MEDS ORDERED: NATURAL IRON65 MG (19:45)
[2021-02-24 21:43] VITALS: BP 118/62; PULSE 85; TEMP 97.3
--- NOTE | 2021-02-24 21:51 | NUR ---
PATIENT ARRIVED TO SURGICAL UNIT FROM ED. ADMITTED FOR RECTAL BLEEDING. PATIENT ALERT AND ORIENTED X4. VITAL SIGNS STABLEL. DENIES PAIN AT THIS TIME. INDEPENDENT IN ROOM, GAIT STEADY. PATIENT ORIENTED TO ROOM, CALL LIGHT WITHIN REACH, BED IN LOW POSITION AND LOCKED. PATIENT IS NPO, EDUCATION DONE ON DIET STATUS. WILL CONTINUE TO MONITOR.
[2021-02-24 22:06] VITALS: BP 118/62; PULSE 85; TEMP 97.3
[2021-02-24] MEDS ORDERED: NOVOLOG FLEX100 U/ML SQ (23:42)
[2021-02-24] MEDS ORDERED: NOVOLOG 100U100 U/M1 SQ (23:42)
[2021-02-24] MEDS ORDERED: OZEMPIC0.25 MG/0. SQ (23:43)
[2021-02-25] VITALS: BP 118/62; PULSE 85; TEMP 97.3
[2021-02-25 00:03] LABS: HEMATOCRIT 40.2 % (42.0-52.0); HEMOGLOBIN 12.2 g/dl (13.5-18.0)
--- NOTE | 2021-02-25 00:52 | NUR ---
PT REFUSES TELEMETRY. ABDIRAHMAN VELA NOTIFIED.
[2021-02-25 04:22] VITALS: BP 120/63; PULSE 97; TEMP 97.8
[2021-02-25 04:39] VITALS: BP 120/63; PULSE 97; TEMP 97.8
[2021-02-25 08:33] VITALS: BP 112/64; PULSE 72; TEMP 98.4
--- NOTE | 2021-02-25 09:15 | NUR ---
PT RESTING IN BED PLAN ON DISCHARGE LATER TODAY. NO BLOOD IN LAST 2 STOOLS. VSS, ASSESSMENTS WNL.
--- NOTE | 2021-02-25 10:40 | NUR ---
Discharge Plan: Home Sw met with the pt who stated his preference to return home once medically stable. Pt lives alone at (apartment)home. Pt next of kin is Stepan (ph# [phone]). Pt stated he has no one else. Pt informed Sw that he is independent on all ADLs and only uses his walker when he walks to his mailbox. Pt informed sw that he uses at glucometer 3x a day. Pt PCP is Dr. Noemi butt at [facility] in [place], [place]. Pt recives his medication from [facility] and does not struggle to obtaining medication. Pt informed Sw that [facility]. Pt does not have a DPOA-HC, and is not interested in making one. No other needs stated at this time. Sw to await further recommendations and follow up as needed.
[2021-02-25 11:29] VITALS: BP 109/47; PULSE 73; TEMP 97.8
[2021-02-25 12:13] LABS: HEMATOCRIT 37.2 % (42.0-52.0); HEMOGLOBIN 11.4 g/dl (13.5-18.0)
--- NOTE | 2021-02-25 12:49 | NUR ---
DISCHARGE INSTRUCTIONS REVIEWED WITH PATIENT. PT WANTS TO STAY FOR LUNCH THEN DISCHARGE AFTER.
[2021-08-09] MEDS ORDERED: OZEMPIC0.25 MG/0. SQ (11:55)
[2021-08-09] MEDS ORDERED: DIFLUCAN 100MG100 MG (12:01)
[2021-08-09] MEDS ORDERED: NYSTATIN POWDER15 GM TOP (12:02)
== END 2021-02-25 14:10 | disposition home or self-care (01) ==
LOC: COL.ER 18:44 → SURG 19:54 → EDBEDREQ 20:13 → SURG 02-25 14:10
PROVIDERS: Emergency Medicine; Nurse Practitioner Family; ADMIT Hospitalist
DX: K62.5 Hemorrhage of anus and rectum (principal); D64.9 Anemia, unspecified; D72.829 Elevated white blood cell count, unspecified; I25.10 Atherosclerotic heart disease of native coronary artery without angina pectoris; I11.0 Hypertensive heart disease with heart failure; I50.20 Unspecified systolic (congestive) heart failure; E78.5 Hyperlipidemia, unspecified; E11.9 Type 2 diabetes mellitus without complications; Z86.73 Personal history of transient ischemic attack (TIA), and cerebral infarction without residual deficits; K21.9 Gastro-esophageal reflux disease without esophagitis; M10.9 Gout, unspecified; N40.0 Benign prostatic hyperplasia without lower urinary tract symptoms; Z79.82 Long term (current) use of aspirin; Z79.4 Long term (current) use of insulin; Z79.02 Long term (current) use of antithrombotics/antiplatelets; Z79.899 Other long term (current) drug therapy; Z87.891 Personal history of nicotine dependence
CPT/HCPCS: G0378; J1815; J7030

== ENCOUNTER 2021-05-07 11:02 | Observation (INO) | payer MEDICARE ==
[~2021-05-07] VITALS: Ht 203.2 cm; Wt 149.1 kg
[~2021-05-07 11:02] MED LIST changes: +LASIX 40MG TABL40 MG PO; +NATURAL IRON65 MG; +NOVOLOG FLEX100 U/ML SQ; +OZEMPIC0.25 MG/0. SQ; +PRINIVIL5 MG PO; +ZYLOPRIM 300MG300 MG PO
[2021-05-07 11:21] LABS: BASO % 0.2 % (0.0-2.0); EOS # 0.2 (0.0-0.7); EOS % 1.1 % (0-4.0); HEMATOCRIT 44.2 % (42.0-52.0); HEMOGLOBIN 13.8 g/dl (13.5-18.0); LYMPH # 1.9 (1.2-3.4); LYMPH % 12.5 % (20.0-51.0); MEAN CELL VOLUME 93 fl (80.0-100.0); MEAN CORPUSCULAR HEMOGLOBIN 29 pg (27.0-31.0); MEAN CORPUSCULAR HGB CONC 31 g/dl (33.0-37.0); MEAN PLATELET VOLUME 10.1 fl (7.4-10.4); MONO # 0.9 (0.1-0.6); MONO % 5.9 % (1.7-9.3); PLATELET COUNT 212 K/mm3 (130-400); RED BLOOD COUNT 4.75 M/mm3 (4.20-5.60)
[2021-05-07] MEDS ORDERED: TRULICITY0.75 MG/0. SQ (11:23)
[2021-05-07 11:29] LABS: PROTHROMBIN TIME 11.5 SECONDS (9.7-12.8)
[2021-05-07 11:35] LABS: BILIRUBIN,TOTAL 0.5 mg/dL (0.0-1.0); C-REACTIVE PROTEIN 0.8 mg/dL (0.0-0.9); CALCIUM 9.4 mg/dL (8.4-10.2); CREATININE, serum 2.08 (0.66-1.25); TOTAL PROTEIN 6.8 gm/dL (6.4-8.2)
[2021-05-07 14:25] VITALS: BP 105/54; PULSE 80; TEMP 98
[2021-05-07 15:40] VITALS: BP 113/58; PULSE 78; TEMP 97.7
--- NOTE | 2021-05-07 18:13 | NUR ---
PATIENT ADMITTED FROM THE ED FOR LANCE/GI BLEED. REPORT RECIEVED HEENA SHERWOOD RN. UPON INITIAL ASSESSMENT, NORMAL S1 AND S2 SOUNDS PRESENT, RADIAL AND PEDAL PULSES +2 BILATERALLY, LUNGS CLEAR TO AUSCULTATION, PATIENT A&O, BOWEL SOUNDS PRESENT IN ALL FOUR QUADRANTS. PATIENT C/O OF A HEADACHE RATED A 5/10 AND NAUSEA. PATIENT GIVEN PRN ZOFRAN AND TYLENOL. NO SKIN ISSUES NOTED. MED REC, ALLERGIES, AND ADMISSION PAPERWORK COMPLETED. PATIENT DENIES ANY FURTHER NEEDS A THIS TIME. CALL LIGHT IN REACH.
--- NOTE | 2021-05-07 18:31 | NUR ---
GI PHARMACEUTICAL PLANT OPERATOR NOTIFIED OF CONSULT.
[2021-05-07 20:31] VITALS: BP 105/56; PULSE 71; TEMP 98.1
[2021-05-07 23:54] LABS: COLLECTION METHOD CATHETER
[2021-05-08] VITALS (7 sets, daily range): BP systolic 122–160; BP diastolic 55–82; PULSE 78–95; TEMP 97.8–98.4
[2021-05-08 00:04] LABS: MUCOUS Present /lpf; PH 5 (5-8); SQUAMOUS EPITHELIAL 0-2 /hpf; URINE APPEARANCE Cloudy; URINE BACTERIA Rare /hpf; URINE BILIRUBIN Negative (NEGATIVE); URINE BLOOD Negative (NEGATIVE); URINE COLOR Yellow; URINE GLUCOSE Negative (NEGATIVE); URINE KETONE Negative (NEGATIVE); URINE LEUKOCYTE ESTERASE 3+ (NEGATIVE); URINE NITRATE Negative (NEGATIVE); URINE PROTEIN(semi-quant) Negative (NEGATIVE); URINE UROBILINOGEN Negative (NEGATIVE)
--- NOTE | 2021-05-08 02:14 | NUR ---
Patient alert and oriented. Patient denies any pain or discomfort. Denies SOB, N/V, or diarrhea. Patient scheduled for EGD in the morning. NPO maintained from midnight. Consent signed for procedure. Call light within reach. Will continue to monitor.
--- NOTE | 2021-05-08 06:16 | NUR ---
Patient ambulating to the bathroom independently. Urine sample collected and sent to lab. No BM for awake overnight counselor. Still need stool culture.
[2021-05-08 07:28] LABS: HEMATOCRIT 40.3 % (42.0-52.0); HEMOGLOBIN 12.5 g/dl (13.5-18.0); MEAN CELL VOLUME 95 fl (80.0-100.0); MEAN CORPUSCULAR HEMOGLOBIN 29 pg (27.0-31.0); MEAN CORPUSCULAR HGB CONC 31 g/dl (33.0-37.0); PLATELET COUNT 177 K/mm3 (130-400); RED BLOOD COUNT 4.26 M/mm3 (4.20-5.60); REDCELL DISTRIBUTION WIDTH-CV 15.2 % (11.5-14.5)
[2021-05-08 07:39] LABS: CALCIUM 9.3 mg/dL (8.4-10.2); CREATININE, serum 1.85 (0.66-1.25); POTASSIUM 5.3 mmol/L (3.4-5.0)
--- NOTE | 2021-05-08 08:15 | NUR ---
Shift assessment complete. Pt resting in bed A&Ox4. Heart RRR. Lungs CTA. Denies dizziness, pain, SOA. Call light in reach. Continuing to monitor.
--- NOTE | 2021-05-08 09:00 | NUR ---
Pt off unit for EGD at this time.
--- NOTE | 2021-05-08 10:00 | NUR ---
Pt found to be using chewing tobacco in room. Advised that this is not allowed per hospital policy and can of tobacco removed from room. Placed in ziploc bag w/pt label and put in pt's bin in med room. aware and nicotine gum ordered.
--- NOTE | 2021-05-08 23:02 | NUR ---
Patient alert and oriented. Patient denies any pain or discomfort. Denies N/V, diarrhea, or SOB. No BM tonight. Scheduled meds given per NOV. Ice water provided per patient request. Call light within reach. Will continue to monitor.
[2021-05-09 05:18] VITALS: BP 146/68; PULSE 75; TEMP 97.8
[2021-05-09 07:22] LABS: HEMATOCRIT 41.2 % (42.0-52.0); HEMOGLOBIN 12.8 g/dl (13.5-18.0); MEAN CELL VOLUME 96 fl (80.0-100.0); MEAN CORPUSCULAR HEMOGLOBIN 30 pg (27.0-31.0); MEAN CORPUSCULAR HGB CONC 31 g/dl (33.0-37.0); MEAN PLATELET VOLUME 9.7 fl (7.4-10.4); PLATELET COUNT 175 K/mm3 (130-400); RED BLOOD COUNT 4.29 M/mm3 (4.20-5.60); REDCELL DISTRIBUTION WIDTH-CV 15.1 % (11.5-14.5)
[2021-05-09 07:41] LABS: CALCIUM 9.4 mg/dL (8.4-10.2); CREATININE, serum 1.21 (0.66-1.25); POTASSIUM 5.3 mmol/L (3.4-5.0)
[2021-05-09 07:50] VITALS: BP 145/85; PULSE 81; TEMP 97.8
--- NOTE | 2021-05-09 08:18 | NUR ---
SCHEDULED MEDICATION GIVEN. SHIFT ASSESSMENT PREFORMED. PATIENT SITTING AT THE EDGE OF THE BED EATING BREAKFAST AT THIS TIME. DENIES ANY PAIN, DISCOMFORT, SOA, OR FURTHER NEEDS AT THIS TIME. CALL LIGHT IN REACH. VSS.
[2021-05-09] MEDS ORDERED: OMNICEF 300MG300 MG PO (09:23)
--- NOTE | 2021-05-09 10:20 | NUR ---
dairy farmworker met with patient to discuss discharge planning. Patient plans to return home where he resides alone, this date. Patient states his son will transport him home and he has [facility]. Worker contacted [facility] and obtained orders. Worker faxed orders and clinical information to [facility].
--- NOTE | 2021-05-09 11:27 | NUR ---
PATIENT DEEMED FIT FOR DISCHARGE. IV DC'D CATHETER INTACT, NO SIGNS OF PHLEBITIS. PATIENT EDUCATION/INSTRUCTIONS GIVEN, DENIES ANY QUESTION OR CONCERNS AT THIS TIME. DENIES ANY PAIN, DISCOMFORT, SOA. VSS. PATIENT ESCORTED FROM BUILDING BY VIA ANGÉLICA STAFF VIA WHEELCHAIR. SON TO TRANSPORT HOME.
[2021-08-09] MEDS ORDERED: OZEMPIC0.25 MG/0. SQ (11:55)
[2021-08-09] MEDS ORDERED: DIFLUCAN 100MG100 MG (12:01)
[2021-08-09] MEDS ORDERED: NYSTATIN POWDER15 GM TOP (12:02)
[2021-08-10] MEDS ORDERED: PLAVIX 75MG TAB75 MG PO (09:56)
[2021-08-10] MEDS ORDERED: LIPITOR 80MG80 MG PO (09:56)
== END 2021-05-09 11:30 | disposition home health service (06) ==
LOC: COL.ER 11:02 → MEDICAL 13:23
PROVIDERS: Internal Medicine; Physician Assistant; ADMIT Internal Medicine
DX: K29.30 Chronic superficial gastritis without bleeding (principal); K29.80 Duodenitis without bleeding; K31.89 Other diseases of stomach and duodenum; K92.1 Melena; K44.9 Diaphragmatic hernia without obstruction or gangrene; K25.9 Gastric ulcer, unspecified as acute or chronic, without hemorrhage or perforation; I95.9 Hypotension, unspecified; E78.5 Hyperlipidemia, unspecified; E87.5 Hyperkalemia; N17.9 Acute kidney failure, unspecified; I25.10 Atherosclerotic heart disease of native coronary artery without angina pectoris; E11.9 Type 2 diabetes mellitus without complications; I50.20 Unspecified systolic (congestive) heart failure; Z86.73 Personal history of transient ischemic attack (TIA), and cerebral infarction without residual deficits; M10.9 Gout, unspecified; N40.0 Benign prostatic hyperplasia without lower urinary tract symptoms; Z87.440 Personal history of urinary (tract) infections; Z79.899 Other long term (current) drug therapy; Z79.4 Long term (current) use of insulin; Z79.82 Long term (current) use of aspirin; I25.2 Old myocardial infarction; J44.9 Chronic obstructive pulmonary disease, unspecified; Z79.02 Long term (current) use of antithrombotics/antiplatelets
CPT/HCPCS: 99223-AI; 99232-AI; 99239; C9113; G0378; J0696; J1815; J2405; J2704; J7030; J7040

== ENCOUNTER 2021-09-18 10:49 | Inpatient (IN) | payer MEDICARE ==
[~2021-09-18] VITALS: Ht 203.4 cm; Wt 137.2 kg
[~2021-09-18 10:49] MED LIST changes: +DIFLUCAN 100MG100 MG; +LIPITOR 80MG80 MG PO; +NYSTATIN POWDER15 GM TOP; +OMNICEF 300MG300 MG PO
[2021-09-18 11:25] LABS: BASO % 0.1 % (0.0-2.0); EOS # 0.1 K/mm3 (0.0-0.7); EOS % 0.6 % (0.0-4.0); GRAN # 10.9 K/mm3 (1.4-6.5); GRAN % 84.9 % (42.2-75.2); HEMATOCRIT 40.4 % (42.0-52.0); HEMOGLOBIN 12.9 g/dl (13.5-18.0); LYMPH # 1.2 K/mm3 (1.2-3.4); LYMPH % 9.1 % (20.0-51.0); MEAN CELL VOLUME 96 fl (80.0-100.0); MEAN CORPUSCULAR HEMOGLOBIN 31 pg (27-31); MEAN CORPUSCULAR HGB CONC 32 g/dl (33.0-37.0); MEAN PLATELET VOLUME 10.2 fl (7.4-10.4); MONO # 0.6 K/mm3 (0.1-0.6); MONO % 4.9 % (1.7-9.3); PLATELET COUNT 157 K/mm3 (130-400); RED BLOOD COUNT 4.21 M/mm3 (4.20-5.60); REDCELL DISTRIBUTION WIDTH-CV 14.1 % (11.5-14.5)
[2021-09-18 11:31] LABS: INR 1.3 (0.8-3.0); PROTHROMBIN TIME 14.3 SECONDS (9.7-12.8)
[2021-09-18 11:36] LABS: ALBUMIN 2.4 gm/dL (3.4-4.8); BILIRUBIN,TOTAL 0.5 mg/dL (0.2-1.2); CALCIUM 6.1 mg/dL (8.4-10.2); CREATININE, serum 0.78 mg/dL (0.72-1.25); TOTAL PROTEIN 4.1 gm/dL (6.2-8.1)
[2021-09-18 11:42] LABS: TROPONIN-I 0.026 ng/mL (0.00-0.033)
[2021-09-18 11:43] LABS: POTASSIUM 2.4 mmol/L (3.5-4.5)
[2021-09-18 16:45] VITALS: BP 95/58; PULSE 78; TEMP 98
[2021-09-18] MEDS ORDERED: PRINIVIL2.5 MG PO (18:30)
[2021-09-18 18:50] LABS: CREATININE, serum 1.68 mg/dL (0.72-1.25)
[2021-09-18 18:59] LABS: TROPONIN-I 0.051 ng/mL (0.00-0.033)
[2021-09-18 19:22] VITALS: BP 102/50; PULSE 76; TEMP 98.2
--- NOTE | 2021-09-18 19:49 | NUR ---
THIS PATIENT ARRIVED TO THE FLOOR AROUND 1630, THE PATIENT HAD BEEN GIVEN 40MG OF LASIX AROUND 1130AM BUT HAD NOT URINATED. BLADDER SCANNED THE PATIENT ON THE FLOOR, AND D/T HIS OBESITY IT WAS DIFFICULT TO GET A READING. DR. DALE ORDERED A MADDEN TO BE PLACED. THIS RN PLACED A 16F COUDE CATHETER AND THE PATIENT OUTPUT WAS ONLY 25ML OF TEA COLORED URINE. AT THIS TIME THERE HAS ONLY BEEN 10ML OUTPUT. CONTACTED FRANK LYNCH WHO I NOTIFIED OF AN ISSUE WITH THE INITIAL LABS. WHEN BMP WAS RERUN AT 1800, THE CREATININE HAD INCREASED FROM 0.78 TO 1.68 AND HIS POTASSIUM IS NOW 5.0 FROM THE INITIAL 2.4. THE PATIENT IS NOW ON ROOM AIR AND IS SATURATING 95%. HE DENIES ANY CHEST PAIN, HOWEVER IS COMPLAINING OF RIGHT FLANK PAIN THAT IS DULL BUT CONSTANT. ASSESSEMENT AND ADMISSION HAS BEEN COMPLETED. REPORT WAS GIVEN TO PRISCILLA VELARDE.
[2021-09-18 21:09] LABS: COLLECTION METHOD CLEAN CATCH
[2021-09-18 21:21] LABS: MUCOUS Present (NOT PRESENT); PH 5 (5-8); SQUAMOUS EPITHELIAL 0-2 /hpf (0-10); URINE APPEARANCE Cloudy (CLEAR/HAZY); URINE BACTERIA Rare /hpf (NONE SEEN); URINE BILIRUBIN Positive (NEGATIVE); URINE BLOOD Negative (NEGATIVE); URINE COLOR Amber (YELLOW); URINE GLUCOSE Negative (NEGATIVE); URINE KETONE Trace (NEGATIVE); URINE LEUKOCYTE ESTERASE Negative (NEGATIVE); URINE NITRATE Negative (NEGATIVE); URINE PROTEIN(semi-quant) 2+ (NEGATIVE); URINE RBC 0-2 /hpf (0-2)
[2021-09-18 23:13] VITALS: BP 115/54; PULSE 95; TEMP 99.4
[2021-09-19] VITALS (23 sets, daily range): BP systolic 93–130; BP diastolic 50–91; PULSE 73–100; TEMP 97.6–98.9
[2021-09-19 07:01] LABS: BASO % 0.3 % (0.0-2.0); EOS # 0.2 K/mm3 (0.0-0.7); EOS % 1.7 % (0.0-4.0); GRAN # 6.3 K/mm3 (1.4-6.5); GRAN % 72.3 % (42.2-75.2); HEMATOCRIT 42.4 % (42.0-52.0); LYMPH # 1.5 K/mm3 (1.2-3.4); LYMPH % 17.2 % (20.0-51.0); MEAN CELL VOLUME 100 fl (80.0-100.0); MEAN CORPUSCULAR HEMOGLOBIN 31 pg (27-31); MEAN CORPUSCULAR HGB CONC 31 g/dl (33.0-37.0); MEAN PLATELET VOLUME 10.3 fl (7.4-10.4); MONO # 0.7 K/mm3 (0.1-0.6); PLATELET COUNT 155 K/mm3 (130-400); RED BLOOD COUNT 4.24 M/mm3 (4.20-5.60); REDCELL DISTRIBUTION WIDTH-CV 14.4 % (11.5-14.5)
[2021-09-19 08:26] LABS: CALCIUM 8.9 mg/dL (8.4-10.2); CREATININE, serum 1.72 mg/dL (0.72-1.25); MAGNESIUM 1.7 mg/dL (1.6-2.6); POTASSIUM 4.3 mmol/L (3.5-4.5)
--- NOTE | 2021-09-19 08:43 | NUR ---
Assessment completed, alert/oriented, vital signs stable, denies any chest pain or discomfort, heart RRR/distal pulses are palpable, SR on tele with PVC's/ tele did call around 0730 and reported a 4 beat run of V-tach/ I have paged Cardiology and waiting for a call back, patient is NPO for stress test this morning and is going down to Nuc med at 0900 for that, oliver was placed last night for accurate I/O , cath is patent with clear yellow urine, he denies other needs at this time, will continue to monitor
[2021-09-19 08:48] LABS: TSH w REFLEX 0.784 uIU/mL (0.350-4.940)
[2021-09-19 08:55] LABS: TROPONIN-I 0.07 ng/mL (0.00-0.033)
--- NOTE | 2021-09-19 09:11 | NUR ---
ASSESSMENT COMPLETE FOR THIS SHIFT. PT RESTING IN BED WATCHING TV. PT DENIES PAIN, PALPITATIONS, SOB OR DIZZINESS. PT TOLD HE COULD NOT EAT OR DRINK AFTER MIDNIGHT. BUT THIS MORNING HE HAD A CUP OF WATER AT HIS BEDSIDE. WHEN I ASKED IF HE DRANK ANY WATER AFTER MIDNIGHT, HE SAID, YES, MY THROAT WAS DRY. I SAID, WE TALKED ABOUT NOT EATING OR DRINKING AFTER MIDNIGHT. PT STATED, I DON'T REMEMBER THAT...THAT'S MY STORY AND I'M STICKING TO IT. PT STATED HE HAD NO OTHER NEEDS AT THIS TIME. CALL LIGHT WITHIN REACH.
[2021-09-19 11:00] LABS: PARTIAL THROMBOPLASTIN TIME 26.9 SECONDS (26.0-37.0)
--- NOTE | 2021-09-19 14:11 | NUR ---
MARTHA met with the patient to discuss discharge plan. The patient lives alone in [place]. He states that his son, Stepan (ph#[phone]), also lives in [place]. He reports independence with ADLs and has a walker. He states that he receives services from [facility]. MARTHA contacted Jenelle at [facility] to confirm services. Jenelle reports that the patient does not receive home health from them anymore, but that he may be on with them for private duty services. He reports that their private duty person is out right now, but she will leave a message with them to call MARTHA back. The patient's primary care provider is FRANK Meneses and he receives his medications from [facility]. He reports no difficulties obtaining his meds. The patient does not have a DPOA-HC. He was interested in obtaining a form. MARTHA provided. The patient states that he only has one son, Stepan. He would like to talk to him first, before completing the DPOA-HC. The patient plans on returning home upon discharge. MARTHA to continue to monitor. Yared, at [facility], then returned MARTHA's phone call. Yared confirms that the patient has private duty services through them. *Discharge plan: home*
--- NOTE | 2021-09-19 16:58 | NUR ---
patient going down for heart cath at this time, consent signed, IVF on straight tubing
--- NOTE | 2021-09-19 17:04 | NUR ---
SEE MERGE FOR ALL MEDICATION ADMINISTRATION TIMES/DOSAGES AND INTRA/POST PROCEDURE SEDATION ASSESSMENTS.
--- NOTE | 2021-09-19 17:45 | NUR ---
Patient arrived back to room 310 from cath lab nurse at this time, alert/oriented, vital signs stable, denies pain, right radial access site/ TR band in place with 12 cc/ 2 hr deflate time will start at 1930, will continue to monitor
--- NOTE | 2021-09-19 21:00 | NUR ---
Patient is resting in bed watching TV, alert and oriented x 4. Denies chest pain, nausea or vomiting. Telemetry in place NSR, Catheter oliver with yellow output. Hep gtt at 21.5 ml/hr. NS at 75ml/hr. Radial compression band still in place. Assessment completed, medications provided. No further needs at this time. Call light within reach.
[2021-09-20] VITALS (9 sets, daily range): BP systolic 114–156; BP diastolic 50–70; PULSE 69–97; TEMP 97.7–98.6
--- NOTE | 2021-09-20 06:40 | NUR ---
Patient has cough and dry nose. Hep gtt is at goal. 21.5Ml/hr. Right hand continues imflamated with some discomfort. No chest pain, pulses present. Still receiving NS 75ML/HR. Report will be given to day RN.
[2021-09-20 10:09] LABS: CREATININE, serum 1.15 mg/dL (0.72-1.25); MAGNESIUM 1.9 mg/dL (1.6-2.6); POTASSIUM 4.3 mmol/L (3.5-4.5)
--- NOTE | 2021-09-20 13:47 | NUR ---
OT is recommending home health vs post-acute. MARTHA met with the patient to review discharge plan and discussed therapy's recommendations. The patient reports that he prefers to return home and would be open to getting home health started back up through [facility]. MARTHA notified and faxed updates to Yeny at [facility]. Yeny reports that they are able to accept the patient and will put him down to be seen on Saturday. *Discharge plan: home with home health*
--- NOTE | 2021-09-20 19:22 | NUR ---
Pt had uneventful day. Had some back pain, Tylenol relieved this. Keron Mitchell'jh, pt urinating without issues. IVF infusing, POC discussed with patient. Call light within reach.
--- NOTE | 2021-09-20 20:23 | NUR ---
Patient is resting in bed watching TV, alert and oriented x 4, denies pain, nausea or vomiting. Recieving NS 50ml/hr. Hygiene provided and miconizole appled. Assessment completed, medications provided. No further needs at this time. Call light withn reach.
--- NOTE | 2021-09-20 23:45 | NUR ---
Patient had an incontinent BM, hygiene provided, linens changed. Pt refuses to drink water.
[2021-09-21 00:05] VITALS: BP 141/69; PULSE 75; TEMP 98.1
[2021-09-21 05:08] VITALS: BP 154/64; PULSE 76; TEMP 98.6
--- NOTE | 2021-09-21 06:14 | NUR ---
Patient has been stable along the night. No major needs. Denies chest pain, sob. Report will be given to day RN.
--- NOTE | 2021-09-21 08:00 | NUR ---
Patient laying in bed, just finished eating breakfast. A&Ox4. VSS. IV CDI, fluids infusing. Toes dry and scaling, bleeding between great left toe and first toe. Non occlusive applied. Denies pain and discomfort. RT radial site CDI. No further needs expressed. Call light within reach
[2021-09-21 08:29] VITALS: BP 162/78; PULSE 89; TEMP 98.3
[2021-09-21 11:35] VITALS: BP 155/64; PULSE 78; TEMP 97.6
--- NOTE | 2021-09-21 13:54 | NUR ---
Discharge paperwork reviewed with the patient. Patient verbalized an understanding to follow doctors orders. IV removed, tip intact. Personal belongings with the patient. No further needs expressed. Patient taken by wheelchair to ride outside
--- NOTE | 2021-09-21 13:56 | NUR ---
The patient discharged backed home today, 09/21, with home health services for mcc/PT/OT from [facility] . SW notified and faxed orders to Clarisa at [facility] . SW presented and read the IM form outloud to the patient. The patient verbalized understanding and gave SW approval to sign the form on his behalf. SW provided him with a copy. No additional needs at this time.
== END 2021-09-21 13:55 | disposition home health service (06) | DRG 286 ==
LOC: COL.ER 10:49 → MEDICAL 12:53
PROVIDERS: Family Medicine; ADMIT Internal Medicine
PROC: 4A023N7 Measurement of Cardiac Sampling and Pressure, Left Heart, Percutaneous Approach (ICD-10-PCS; principal; 2021-09-19)
PROC: B2111ZZ Fluoroscopy of Multiple Coronary Arteries using Low Osmolar Contrast (ICD-10-PCS; 2021-09-19)
DX: T82.855A Stenosis of coronary artery stent, initial encounter (principal); J96.01 Acute respiratory failure with hypoxia; N17.9 Acute kidney failure, unspecified; I50.22 Chronic systolic (congestive) heart failure; I11.0 Hypertensive heart disease with heart failure; E11.9 Type 2 diabetes mellitus without complications; E78.5 Hyperlipidemia, unspecified; N40.0 Benign prostatic hyperplasia without lower urinary tract symptoms; M10.9 Gout, unspecified; D64.9 Anemia, unspecified; E87.6 Hypokalemia; K21.9 Gastro-esophageal reflux disease without esophagitis; I49.3 Ventricular premature depolarization; I25.10 Atherosclerotic heart disease of native coronary artery without angina pectoris; Y71.8 Miscellaneous cardiovascular devices associated with adverse incidents, not elsewhere classified; Z95.5 Presence of coronary angioplasty implant and graft; Z86.73 Personal history of transient ischemic attack (TIA), and cerebral infarction without residual deficits; I25.2 Old myocardial infarction; Z79.82 Long term (current) use of aspirin; Z79.4 Long term (current) use of insulin; Z87.891 Personal history of nicotine dependence; Z23 Encounter for immunization
CPT/HCPCS: 99223-AI; 99232-AI; 99233-AI; 99239; A9500; A9540; A9567; C8924; J1644; J1650; J1815; J1940; J2250; J2405; J2785; J3010; J3475; J3480; J7030; Q9957; Q9967

== ENCOUNTER 2022-05-01 15:31 | Observation (INO) | payer MEDICARE ==
[~2022-05-01] VITALS: Ht 203.2 cm; Wt 153.8 kg
[~2022-05-01 15:31] MED LIST changes: -DIFLUCAN 100MG100 MG; +DIFLUCAN 100MG100 MG PO; +PRINIVIL2.5 MG PO
[2022-05-01 16:53] LABS: BASO % 0.2 % (0.0-2.0); EOS % 0.2 % (0.0-4.0); GRAN # 7.6 K/mm3 (1.4-6.5); GRAN % 74.4 % (42.2-75.2); HEMATOCRIT 40.9 % (42.0-52.0); HEMOGLOBIN 13.7 g/dl (13.5-18.0); LYMPH # 1.2 K/mm3 (1.2-3.4); LYMPH % 11.3 % (20.0-51.0); MEAN CELL VOLUME 96 fl (80.0-100.0); MEAN CORPUSCULAR HEMOGLOBIN 32 pg (27-31); MEAN CORPUSCULAR HGB CONC 34 g/dl (33.0-37.0); MEAN PLATELET VOLUME 10.6 fl (7.4-10.4); MONO # 1.4 K/mm3 (0.1-0.6); MONO % 13.5 % (1.7-9.3); PLATELET COUNT 139 K/mm3 (130-400); RED BLOOD COUNT 4.27 M/mm3 (4.20-5.60); REDCELL DISTRIBUTION WIDTH-CV 13.8 % (11.5-14.5)
[2022-05-01 17:13] LABS: ALBUMIN 3.4 gm/dL (3.4-4.8); BILIRUBIN,TOTAL 0.6 mg/dL (0.2-1.2); C-REACTIVE PROTEIN 1.91 mg/dL (0.00-0.50); CALCIUM 9.8 mg/dL (8.4-10.2); CREATININE, serum 1.52 mg/dL (0.72-1.25); POTASSIUM 4.8 mmol/L (3.5-4.5); TOTAL PROTEIN 6.5 gm/dL (6.2-8.1)
[2022-05-01 17:19] LABS: TROPONIN-I 0.849 ng/mL (0.00-0.033)
[2022-05-01 21:41] VITALS: BP 155/68; PULSE 50; TEMP 99.4
[2022-05-01] MEDS ORDERED: LANTUS SOLOS100 U/ML SQ (22:25)
[2022-05-01] MEDS ORDERED: ZETIA 10MG TAB10 MG PO (22:27)
[2022-05-01] MEDS ORDERED: ZEBETA 5MG5 MG PO (22:28)
--- NOTE | 2022-05-01 23:00 | NUR ---
Admitted to medical floor from ER- dx: covid positive, cough, increasing SOB, VSS at this time, o2 sat 94% on RA, temp 99.4, vitals stable, states having some body aches all over, requesting sandwich box, most recent troponin level 1.018 Katarzyna FRANK aware, started on a heparin drip at this time at 10cc/hr{1000 units/hr} did get a 4000unit bolus as ordered, next hepxa at 0500 in the morning- tele on, Urinal at bedside- pt know to call for assistance to bathroom- aware that we need a urine specimen and a sputum- sputum cup at bedside,
[2022-05-01 23:16] LABS: PARTIAL THROMBOPLASTIN TIME 30.2 SECONDS (26.0-37.0)
[2022-05-02 01:04] VITALS: BP 141/69; PULSE 89; TEMP 98.2
[2022-05-02 05:21] VITALS: BP 149/65; PULSE 62; TEMP 98.3
--- NOTE | 2022-05-02 05:58 | NUR ---
Slept well all night- no requests, o2 sats 93% RA. Heparin drip remains at 10cc/hr- lab here to draw hepXA at this time.
[2022-05-02 06:26] LABS: BASO % 0.1 % (0.0-2.0); GRAN # 6.3 K/mm3 (1.4-6.5); GRAN % 85.3 % (42.2-75.2); HEMATOCRIT 41.1 % (42.0-52.0); HEMOGLOBIN 13.4 g/dl (13.5-18.0); LYMPH # 0.8 K/mm3 (1.2-3.4); LYMPH % 10.7 % (20.0-51.0); MEAN CELL VOLUME 96 fl (80.0-100.0); MEAN CORPUSCULAR HEMOGLOBIN 31 pg (27-31); MEAN CORPUSCULAR HGB CONC 33 g/dl (33.0-37.0); MEAN PLATELET VOLUME 10.7 fl (7.4-10.4); MONO # 0.3 K/mm3 (0.1-0.6); MONO % 3.4 % (1.7-9.3); PLATELET COUNT 127 K/mm3 (130-400); RED BLOOD COUNT 4.27 M/mm3 (4.20-5.60); REDCELL DISTRIBUTION WIDTH-CV 13.8 % (11.5-14.5)
[2022-05-02 06:43] LABS: CALCIUM 9.7 mg/dL (8.4-10.2); CREATININE, serum 1.48 mg/dL (0.72-1.25); MAGNESIUM 1.9 mg/dL (1.6-2.6); POTASSIUM 4.7 mmol/L (3.5-4.5)
[2022-05-02 06:52] LABS: TROPONIN-I 0.708 ng/mL (0.00-0.033)
[2022-05-02 07:54] VITALS: BP 138/87; PULSE 79; TEMP 97.7
--- NOTE | 2022-05-02 11:15 | NUR ---
PATIENT SOMEWHAT UNCOOPERATIVE. STATED HE "DOESNT FOLLOW RULES." CURRENTYL REFUSING TO CHANGE INTO A GOWN. BED ALARM ON. PAIENT RESTINGIN BED. ALL BELONGINGS WITHIN REACH. PATIENT STABLE. WILL CONTINUE TO MONITOR.
[2022-05-02 11:30] VITALS: BP 146/71; PULSE 77; TEMP 98.3
--- NOTE | 2022-05-02 12:56 | NUR ---
Decorative Cutting Machine Tender contacted patient by phone to discuss discharge planning as he is in isolation for [facility]. Patient lives alone in [place] at the [facility] and sees FRANK Meneses for primary care. Patient obtains medications from [facility] with no difficulties and uses a walker for ambulation. Patient reports he is independent with ADLS and plans to return home at time of discharge. Patient does not have Advance Directives. Patient is not and only has one child, Stepan (ph#[phone]). Discharge Plan: Home
--- NOTE | 2022-05-02 19:17 | NUR ---
PATIENT RESTING IN BED WATCHING TELEVISION AT THIS TIME. PATIENT IN GOOD MOOD, JOKING WITH PRISCILLA KAT. PATIENT DENIES PAIN, NEEDS OR CONCERNS AT THIS TIME. PATIENT HAS CALL LIGHT WITHIN REACH AND IS ENCOURAGED TO CALL WITH ANY NEEDS OR CONCERNS.
[2022-05-02 20:42] VITALS: BP 130/62; PULSE 71; TEMP 97.9
[2022-05-03] VITALS (8 sets, daily range): BP systolic 123–165; BP diastolic 56–88; PULSE 50–72; TEMP 97.5–98.4
--- NOTE | 2022-05-03 05:22 | NUR ---
PATIENT HAD UNEVENTFUL NIGHT AND HAS REMAINED THERAPUTIC WITH HIS HEPRIN DRIP X TWO. PATIENT DENIES PAIN. PATIENT EDUCATION GIVEN ON DECADRON USE AND ELEVATED BLOOD SUGARS. PATIENT STATES HE FEELS HIS BLOOD SUGARS ARE NEVER THIS HIGH AT HOME. PATIENT WILL NEED REINFORCED EDUCATION. CALL LIGHT REMAINS WITHIN REACH OF PATIENT. PATIENT AGAIN ENCOURAGED TO CALL WITH ANY NEEDS OR CONCERNS.
[2022-05-03 06:54] LABS: HEMATOCRIT 39.8 % (42.0-52.0); HEMOGLOBIN 13.2 g/dl (13.5-18.0); MEAN CELL VOLUME 94 fl (80.0-100.0); MEAN CORPUSCULAR HEMOGLOBIN 31 pg (27-31); MEAN CORPUSCULAR HGB CONC 33 g/dl (33.0-37.0); MEAN PLATELET VOLUME 10.5 fl (7.4-10.4); PLATELET COUNT 153 K/mm3 (130-400); RED BLOOD COUNT 4.22 M/mm3 (4.20-5.60); REDCELL DISTRIBUTION WIDTH-CV 13.4 % (11.5-14.5)
--- NOTE | 2022-05-03 13:38 | NUR ---
Home Health Aide contacted Hospitalist and requested PT/OT orders.
[2022-05-03 17:30] LABS: CALCIUM 9.5 mg/dL (8.4-10.2); CREATININE, serum 1.32 mg/dL (0.72-1.25); POTASSIUM 4.8 mmol/L (3.5-4.5)
--- NOTE | 2022-05-03 18:52 | NUR ---
PATIENT LAYING IN BED WATCHING TELEVISION AT THIS TIME. PATIENT DENIES PAIN, NEEDS, OR CONCERNS AT THIS TIME. CALL LIGHT IS WITHIN REACH AND PATIENT ENCOUARGED TO USE WITH ANY NEEDS OR CONCERNS. REMINDED PATIENT HE WOULD BE NPO AT MIDNIGHT. PATIENT STATES UNDERSTANDING.
[2022-05-04] VITALS (8 sets, daily range): BP systolic 140–169; BP diastolic 61–88; PULSE 55–76; TEMP 97.7–98.1
--- NOTE | 2022-05-04 05:00 | NUR ---
PATIENT HAD AN UNEVENTFUL NIGHT AND HAS BEEN NPO SINCE 0000 FOR SECOND PART OF [place] THIS DATE. PATIENT DENIES PAIN, NEEDS OR CONCERNS. CALL LIGHT REMAINS WITHIN REACH AND PATIENT ENCOURAGED TO USE WITH NEEDS. PATIENT STATES UNDERSTANDING.
[2022-05-04 06:13] LABS: BASO % 0.1 % (0.0-2.0); GRAN # 8.4 K/mm3 (1.4-6.5); GRAN % 82.9 % (42.2-75.2); HEMATOCRIT 39.4 % (42.0-52.0); HEMOGLOBIN 13.1 g/dl (13.5-18.0); MEAN CELL VOLUME 95 fl (80.0-100.0); MEAN CORPUSCULAR HEMOGLOBIN 31 pg (27-31); MEAN CORPUSCULAR HGB CONC 33 g/dl (33.0-37.0); MEAN PLATELET VOLUME 10.5 fl (7.4-10.4); MONO # 0.7 K/mm3 (0.1-0.6); MONO % 6.7 % (1.7-9.3); PLATELET COUNT 150 K/mm3 (130-400); RED BLOOD COUNT 4.17 M/mm3 (4.20-5.60); REDCELL DISTRIBUTION WIDTH-CV 13.2 % (11.5-14.5)
[2022-05-04 06:39] LABS: CALCIUM 9.4 mg/dL (8.4-10.2); CREATININE, serum 1.14 mg/dL (0.72-1.25); MAGNESIUM 2.1 mg/dL (1.6-2.6); PHOSPHOROUS 2.8 mg/dL (2.3-4.7); POTASSIUM 4.6 mmol/L (3.5-4.5)
--- NOTE | 2022-05-04 10:00 | NUR ---
PT VS STABLE, ALERT AND ORIEBD X4, DUE MEDS GIVEN PRESCRIBED, NO ADVERSE REACTION NOTED. PT DENIES A ANY COMPLAINTS.
[2022-05-04] MEDS ORDERED: RT Albuterol HFA MDI IH (11:19)
--- NOTE | 2022-05-04 14:57 | NUR ---
Edge Stainer Machine contacted patient, who will discharge home today. SW reviewed MITCHELL form over the phone with patient. At first, patient stated "okay" after SW explained it. SW asked patient if he understood and patient stated, "not really but whatever". SW again explained that he is being downgraded to observation status. Patient is not happy about this and stated he just needed SW to help him get pants. SW secured a pair of pants and provided it to patient. MARTHA emailed [employer] Financial Counselor to follow up and discuss financial assistance if needed.
--- NOTE | 2022-05-04 14:57 | NUR ---
PT DISCHARGED FROM THE UNIT, TELE DISCONTINUED, IV CANNULA REMOVED TIP INTACT.DC SUMMARY GIVEN INSTRUCTION PROVIDED PT VERBALIZE UNDERSTANDING. PT ESCORTED OUT OF THE BULIDING ON A WHEELCHAIR GOING HOME WITH RON.
== END 2022-05-04 14:20 | disposition home or self-care (01) ==
LOC: COL.ER 15:31 → MEDICAL 19:55
PROVIDERS: Internal Medicine; Nurse Practitioner; Student in an Organized Health Care Education/Training Program; ADMIT Hospitalist
DX: J96.01 Acute respiratory failure with hypoxia (principal); U07.1 COVID-19; N17.9 Acute kidney failure, unspecified; I21.4 Non-ST elevation (NSTEMI) myocardial infarction; I11.0 Hypertensive heart disease with heart failure; I50.20 Unspecified systolic (congestive) heart failure; I25.10 Atherosclerotic heart disease of native coronary artery without angina pectoris; I25.2 Old myocardial infarction; E78.5 Hyperlipidemia, unspecified; E11.65 Type 2 diabetes mellitus with hyperglycemia; M10.9 Gout, unspecified; N40.0 Benign prostatic hyperplasia without lower urinary tract symptoms; K21.9 Gastro-esophageal reflux disease without esophagitis; F17.220 Nicotine dependence, chewing tobacco, uncomplicated; Z79.82 Long term (current) use of aspirin; Z95.5 Presence of coronary angioplasty implant and graft; Z79.4 Long term (current) use of insulin; Z79.84 Long term (current) use of oral hypoglycemic drugs; Z79.899 Other long term (current) drug therapy; Z86.73 Personal history of transient ischemic attack (TIA), and cerebral infarction without residual deficits; Z79.02 Long term (current) use of antithrombotics/antiplatelets; Z89.421 Acquired absence of other right toe(s)
CPT/HCPCS: A9500; G0378; J1100; J1644; J1815; J2785

== ENCOUNTER 2022-11-23 04:37 | Inpatient (IN) | payer MEDICARE ==
[~2022-11-23] VITALS: Ht 203.2 cm; Wt 151.8 kg
[~2022-11-23 04:37] MED LIST changes: +FLOMAX 0.40.4 MG/CAP PO; +LANTUS SOLOS100 U/ML SQ; +MIRALAX238G PO; +RT Albuterol HFA MDI IH; +ZEBETA 5MG5 MG PO; +ZETIA 10MG TAB10 MG PO
[2022-11-23 04:56] LABS: BASO % 0.4 % (0.0-2.0); EOS # 0.1 K/mm3 (0.0-0.7); EOS % 1.1 % (0.0-4.0); GRAN # 7.4 K/mm3 (1.4-6.5); GRAN % 72.8 % (42.2-75.2); HEMATOCRIT 39.6 % (42.0-52.0); HEMOGLOBIN 13.6 g/dl (13.5-18.0); LYMPH # 1.8 K/mm3 (1.2-3.4); LYMPH % 17.2 % (20.0-51.0); MEAN CELL VOLUME 100 fl (80.0-100.0); MEAN CORPUSCULAR HEMOGLOBIN 34 pg (27-31); MEAN CORPUSCULAR HGB CONC 34 g/dl (33.0-37.0); MEAN PLATELET VOLUME 10.1 fl (7.4-10.4); MONO # 0.8 K/mm3 (0.1-0.6); MONO % 7.8 % (1.7-9.3); PLATELET COUNT 176 K/mm3 (130-400); RED BLOOD COUNT 3.96 M/mm3 (4.20-5.60); REDCELL DISTRIBUTION WIDTH-CV 13.8 % (11.5-14.5)
[2022-11-23 05:15] LABS: BILIRUBIN,TOTAL 0.4 mg/dL (0.2-1.2); CALCIUM 9.5 mg/dL (8.4-10.2); CREATININE, serum 1.04 mg/dL (0.72-1.25); POTASSIUM 4.3 mmol/L (3.5-4.5); TOTAL PROTEIN 6.1 gm/dL (6.2-8.1)
[2022-11-23 05:16] LABS: ARTERIAL BLD GAS O2 SATURATION 97.3 % (92-100); ARTERIAL BLD GAS TCO2 CT 27.1; ARTERIAL BLOOD GAS PCO2 38.3 mmHg (35-45); ARTERIAL BLOOD GAS PO2 86.1 mmHg (80-100); ARTERIAL BLOOD GAS pH 7.45 (7.35-7.45)
[2022-11-23 05:24] LABS: TROPONIN-I 0.063 ng/mL (0.00-0.033)
[2022-11-23] MEDS ORDERED: LASIX 80MG TABL80 MG PO (11:33)
[2022-11-23 12:00] VITALS: BP 124/59; PULSE 69; TEMP 99.2
[2022-11-23 15:34] VITALS: BP 139/70; PULSE 71; TEMP 98.5
[2022-11-23 16:02] LABS: MAGNESIUM 1.5 mg/dL (1.6-2.6)
[2022-11-23 16:22] LABS: THYROID STIMULATING HORMONE 1.697 uIU/mL (0.350-4.940)
--- NOTE | 2022-11-23 19:30 | NUR ---
pt resting in recliner watching tv. magnesium and lasix gtt started. pt on 2L nc. +1 pitting edema in BLE. 220ml of fluid restriction of 1500ml remaining. tear to right second toe, bandaid applied. pt denies any needs at this time. call light in reach.
[2022-11-23 20:16] VITALS: BP 158/67; PULSE 70; TEMP 98.2
[2022-11-23 23:34] VITALS: BP 137/76; PULSE 71; TEMP 98.1
--- NOTE | 2022-11-24 03:40 | NUR ---
pt asking for oliver to be put in, not put in earlier per pts request. 16F oliver inserted w 1100 yellow urine output immediately, no difficulties.
[2022-11-24 03:47] VITALS: BP 143/78; PULSE 64; TEMP 97.5
[2022-11-24 08:00] VITALS: BP 159/68; PULSE 69; TEMP 97.6
[2022-11-24 08:43] LABS: BASO % 0.2 % (0.0-2.0); EOS # 0.1 K/mm3 (0.0-0.7); EOS % 1.4 % (0.0-4.0); GRAN % 72.7 % (42.2-75.2); HEMOGLOBIN 13.1 g/dl (13.5-18.0); LYMPH # 1.6 K/mm3 (1.2-3.4); LYMPH % 16.5 % (20.0-51.0); MEAN CELL VOLUME 100 fl (80.0-100.0); MEAN CORPUSCULAR HEMOGLOBIN 35 pg (27-31); MEAN CORPUSCULAR HGB CONC 35 g/dl (33.0-37.0); MEAN PLATELET VOLUME 9.9 fl (7.4-10.4); MONO # 0.8 K/mm3 (0.1-0.6); MONO % 8.8 % (1.7-9.3); PLATELET COUNT 162 K/mm3 (130-400); RED BLOOD COUNT 3.79 M/mm3 (4.20-5.60)
[2022-11-24 08:59] LABS: CALCIUM 9.6 mg/dL (8.4-10.2); CREATININE, serum 1.02 mg/dL (0.72-1.25); MAGNESIUM 1.8 mg/dL (1.6-2.6); POTASSIUM 4.3 mmol/L (3.5-4.5)
--- NOTE | 2022-11-24 09:15 | NUR ---
Patient sitting up in bed. Offered to assist patient to chair, no interest. Patient tolerated breakfast tray without troubles. Insulin per sliding scale, he is frustrated with our sliding scale, he believes he should be taking higher dose of Novolog. Cabrales to DD, adequate urine output. Lasix drip per orders. Remided him of strict I&O & fluid restrictions. Will monitor.
--- NOTE | 2022-11-24 09:32 | NUR ---
critical troponin to , no new orders at this time
[2022-11-24 12:18] VITALS: BP 114/90; PULSE 69; TEMP 98.1
--- NOTE | 2022-11-24 12:34 | NUR ---
Patient continues to be frustrated by the amount of insulin given with his lunch meal. Attempted to call no answer.
[2022-11-24 15:36] VITALS: BP 135/46; PULSE 68; TEMP 97.7
--- NOTE | 2022-11-24 16:05 | NUR ---
Children'S Lunchroom Supervisor met with Patient at bedside to conduct Care Managment Assessment and discuss discharge planning. Patient reported that he lives in [place], [place] alone. Patient reported that his Son, Stepan P: [phone] is his best point of contact with the family. Patient denies the use of O2 prior to admission. Patient reports to be established with Home Healthcare at home but does not remember the agency at this time. PAtient declines AD paperwork. Patient intends to discharge home with home health services.
--- NOTE | 2022-11-24 17:47 | NUR ---
Patient resting in bed. Dinner ordered. Insulin per orders. Oliver to DD, great urine output from oliver with lasix drip. Chf notebook was given to patient this afternoon, further education needed, mehran reports no scale at home to manage weight.
[2022-11-24 19:47] VITALS: BP 123/57; PULSE 64; TEMP 97.7
--- NOTE | 2022-11-24 20:30 | NUR ---
PT IN BED, SON VISITING. PT HH=[id number], ASKING FOR MORE INSULIN. PT NORMALLY TAKES LEVEMIR 65UNITS AT HS. DID NOTIFY MIGUEL MARIE OF PT REQUEST AND ELEVATED BS. NEW ORDERS PLACED.
--- NOTE | 2022-11-24 21:45 | NUR ---
PT ASSISTED TO RECLINER AT BEDSIDE. HS MEDS GIVEN INCLUDING ONE TIME DOSE OF NOVOLOG 10UNITS AND HOME DOSE OF LEVEMIR. HAS LASIX GTT INFUSING TO RFA, HAS INT TO RFA, BOTH FLUSH EASILY. MADDEN TO BSD WITH YELLOW URINE. PT IS ALERT AND ORIENTED X4. BLE WITH MILD EDEMA. NOT WEARING OXYGEN, IS MILDLY SHORT OF BREATH WITH ACTIVITY.
[2022-11-24 23:56] VITALS: BP 141/62; PULSE 69; TEMP 98
[2022-11-25 04:32] VITALS: BP 125/67; PULSE 65; TEMP 97.6
--- NOTE | 2022-11-25 05:45 | NUR ---
PT IN BED, SCHEDULED AM MED GIVEN. LABS DRAWN. REMAINS ON LASIX GTT.
[2022-11-25 07:00] LABS: BASO % 0.4 % (0.0-2.0); EOS # 0.2 K/mm3 (0.0-0.7); EOS % 1.7 % (0.0-4.0); GRAN # 6.4 K/mm3 (1.4-6.5); GRAN % 70.6 % (42.2-75.2); HEMOGLOBIN 12.8 g/dl (13.5-18.0); LYMPH # 1.6 K/mm3 (1.2-3.4); MEAN CELL VOLUME 99 fl (80.0-100.0); MEAN CORPUSCULAR HEMOGLOBIN 35 pg (27-31); MEAN CORPUSCULAR HGB CONC 35 g/dl (33.0-37.0); MEAN PLATELET VOLUME 10.2 fl (7.4-10.4); MONO # 0.8 K/mm3 (0.1-0.6); MONO % 8.9 % (1.7-9.3); PLATELET COUNT 165 K/mm3 (130-400); RED BLOOD COUNT 3.71 M/mm3 (4.20-5.60); REDCELL DISTRIBUTION WIDTH-CV 13.7 % (11.5-14.5)
[2022-11-25 07:02] LABS: HEMATOCRIT 36.7 % (42.0-52.0)
[2022-11-25 07:07] LABS: CALCIUM 9.3 mg/dL (8.4-10.2); CREATININE, serum 1.06 mg/dL (0.72-1.25); POTASSIUM 3.7 mmol/L (3.5-4.5)
--- NOTE | 2022-11-25 07:26 | NUR ---
Shift report received from the night nurseKrissy RN
[2022-11-25 07:54] VITALS: BP 111/58; PULSE 68; TEMP 97.8
--- NOTE | 2022-11-25 08:48 | NUR ---
Patient awake sitting up in bed watching TV. Patient alert and oriented, patient denies shortness of breath and chest pain. Cabrales draining yellow urine in bag and noted about 700cc of clear yellow urine in bag. Patient denies pain at this time.
[2022-11-25 12:00] VITALS: BP 122/56; PULSE 66; TEMP 98.1
--- NOTE | 2022-11-25 12:06 | NUR ---
Truck Leasing Manager Rounds: Patient accepted visit. We talked about sports and places we have lived before. Patient is from a small town in [place] that is struggling economically. Patient has a son living near [facility]. Son visited last night. Patient would be appreciative of having Truck Leasing Manager Jol visit during the coming week. Patient feels comfortable with his doctor and the way his daughter speaks with him. Truck Leasing Manager prayed for Patient for this coming week and for economic recovery for that little town in [place].
[2022-11-25 16:00] VITALS: BP 129/57; PULSE 71; TEMP 98.4
[2022-11-25 19:47] VITALS: BP 147/50; PULSE 71; TEMP 97.8
--- NOTE | 2022-11-25 20:00 | NUR ---
PT IN BED, IS ALERT AND ORIENTED X4. HAS INT TO RT HAND AND RFA, BOTH FLUSH WITHOUT PROBLEM. HAS MADDEN TO BSD WITH YELLOW URINE. IS NO LONGER ON LASIX GTT, NOW LASIX INJECTIONS. ASKING IF THERE ARE ANY TALK OF HIM DISCHARGING TOMORROW. REVIEWED 'S NOTES, NOTHING STATING DISCHARGE. PT AWARE HE IS GETTING AND ECHO 11/26. ZP=[id number].
--- NOTE | 2022-11-25 21:34 | NUR ---
GIVEN NOVOLOG 10UNITS NOW FOR EP=[id number]. PT RECEIVED HOME DOSE OF LEVEMIR EARLIER.
[2022-11-26 00:06] VITALS: BP 148/54; PULSE 72; TEMP 97.9
[2022-11-26 03:54] VITALS: BP 130/59; PULSE 67; TEMP 97.9
--- NOTE | 2022-11-26 06:06 | NUR ---
PT UP IN RECLINER CHAIR AT BEDSIDE. NO CONCERNS VOICED. TAKES SCHEDULED AM MED.
[2022-11-26 07:15] LABS: BASO % 0.3 % (0.0-2.0); EOS # 0.1 K/mm3 (0.0-0.7); EOS % 1.5 % (0.0-4.0); GRAN # 6.5 K/mm3 (1.4-6.5); GRAN % 69.9 % (42.2-75.2); HEMATOCRIT 39.9 % (42.0-52.0); HEMOGLOBIN 13.2 g/dl (13.5-18.0); LYMPH # 1.6 K/mm3 (1.2-3.4); LYMPH % 17.5 % (20.0-51.0); MEAN CELL VOLUME 102 fl (80.0-100.0); MEAN CORPUSCULAR HEMOGLOBIN 34 pg (27-31); MEAN CORPUSCULAR HGB CONC 33 g/dl (33.0-37.0); MEAN PLATELET VOLUME 9.7 fl (7.4-10.4); MONO % 10.4 % (1.7-9.3); PLATELET COUNT 154 K/mm3 (130-400); RED BLOOD COUNT 3.91 M/mm3 (4.20-5.60); REDCELL DISTRIBUTION WIDTH-CV 13.8 % (11.5-14.5)
[2022-11-26 07:29] VITALS: BP 120/55; PULSE 67; TEMP 98.3
[2022-11-26 07:30] LABS: CALCIUM 9.4 mg/dL (8.4-10.2); CREATININE, serum 1.09 mg/dL (0.72-1.25); MAGNESIUM 1.6 mg/dL (1.6-2.6)
--- NOTE | 2022-11-26 08:34 | NUR ---
Patient resting in bed. He has been up to commode, steady on his feet. bowels active. He tolerated breakfast. echo comlpeted this am. Oliver to DD. Only complaint of pain is oliver irritation. Will monitor
[2022-11-26 11:03] VITALS: BP 116/60; PULSE 79; TEMP 98.3
[2022-11-26 15:21] VITALS: BP 126/64; PULSE 66; TEMP 98
--- NOTE | 2022-11-26 15:55 | NUR ---
Manager Pacu followed up with patient to discuss home health services. Patient again stated he gets HH services, however could not recall the agency even when SW named off local agencies. SW contacted [facility] based on previous SW notes and was advised they have not seen patient since last year. SW contacted patient's primary care office, [place] and spoke with RN who advised patient gets some kind of volunteer services at home, but to their knowledge does not have skilled HH set up at this time. SW to follow up with patient on skilled HH tomorrow.
--- NOTE | 2022-11-26 18:07 | NUR ---
Patient independent in room, denies pain since oliver removed. Voiding without difficulty. REminding him the importace of fluid restrictions and strict I&O. He has done well with meals. Insulin per orders. Will report off to nightnurse
[2022-11-26 19:13] VITALS: BP 122/51; PULSE 68; TEMP 98.1
[2022-11-27 00:17] VITALS: BP 92/60; PULSE 72; TEMP 97.4
--- NOTE | 2022-11-27 00:57 | NUR ---
SHIFT REPORT FROM IRENA WELLS. PATIENT IN BED ON ROOM ENTRY. ALERT AND ORIENTED. HS MEDS PER EMAR. DENIES PAIN AT THIS TIME. HAVING TROUBLE WITH STRICT I&OS PATIENT HAS SPILLED URINE ON FLOOR SEVERAL TIMES. DENIES ADDITIONAL NEEDS. CALL LIGHT IN REACH.
[2022-11-27 03:35] VITALS: BP 127/55; PULSE 65; TEMP 97.6
[2022-11-27 06:35] LABS: BASO % 0.4 % (0.0-2.0); EOS # 0.2 K/mm3 (0.0-0.7); EOS % 1.8 % (0.0-4.0); GRAN # 5.9 K/mm3 (1.4-6.5); GRAN % 68.2 % (42.2-75.2); HEMATOCRIT 38.2 % (42.0-52.0); HEMOGLOBIN 12.7 g/dl (13.5-18.0); LYMPH # 1.7 K/mm3 (1.2-3.4); LYMPH % 20.3 % (20.0-51.0); MEAN CELL VOLUME 102 fl (80.0-100.0); MEAN CORPUSCULAR HEMOGLOBIN 34 pg (27-31); MEAN CORPUSCULAR HGB CONC 33 g/dl (33.0-37.0); MEAN PLATELET VOLUME 10.5 fl (7.4-10.4); MONO # 0.8 K/mm3 (0.1-0.6); MONO % 8.8 % (1.7-9.3); PLATELET COUNT 157 K/mm3 (130-400); RED BLOOD COUNT 3.76 M/mm3 (4.20-5.60); REDCELL DISTRIBUTION WIDTH-CV 13.8 % (11.5-14.5)
[2022-11-27 06:52] LABS: CALCIUM 9.1 mg/dL (8.4-10.2); CREATININE, serum 1.15 mg/dL (0.72-1.25); POTASSIUM 3.9 mmol/L (3.5-4.5)
[2022-11-27 07:20] VITALS: BP 136/89; PULSE 60; TEMP 98.1
--- NOTE | 2022-11-27 08:30 | NUR ---
AM MEDS GIVEN ORDERED. PT INDEPENDENT IN ROOM. UP TO RECLINER INDEPENDENTLY FOR BREAKFAST. HR IN 70'S. PT DENIES PAIN OR SOB. PT REPORTS POSSIBLE DISCHARGE LATER TODAY.
--- NOTE | 2022-11-27 11:00 | NUR ---
Upon entry, patient states "I remember you, and I still have the sheet". Contact information given for Cardiac rehab if patient has questions on "CHF zones sheets".
[2022-11-27 11:06] VITALS: BP 125/52; PULSE 67; TEMP 98
[2022-11-27] MEDS ORDERED: ZEBETA 5MG5 MG PO (13:03)
[2022-11-27] MEDS ORDERED: LASIX 40MG TABL40 MG PO (13:04)
[2022-11-27] MEDS ORDERED: JARDIANCE10 PO (13:07)
[2022-11-27] MEDS ORDERED: ENTRESTO 24 MG1 EACH PO (13:12)
--- NOTE | 2022-11-27 14:59 | NUR ---
Environmental Inspector met with patient and presented IM. Patient verbalized understanding and provided signature. SW placed form in chart and provided copy to patient. SW discussed Home Health PT/OT and he is agreeable. Patient would like to use [facility] as he has used them in the past. MARTHA contacted Abdirashid at [facility] and faxed referral with discharge orders. Discharge Plan: Home with [facility]
--- NOTE | 2022-11-27 15:28 | NUR ---
DISCHARGE INSTRUCTIONS REVIEWED WITH PT. QUESTIONS ANSWERED. PT LEFT UNIT PER WHEEL CHAIR WITH STAFF.
== END 2022-11-27 15:00 | disposition home health service (06) | DRG 291 ==
LOC: COL.ER 04:37 → SURG 10:14
PROVIDERS: Emergency Medicine; Physician Assistant; ADMIT Student in an Organized Health Care Education/Training Program
DX: I11.0 Hypertensive heart disease with heart failure (principal); I50.23 Acute on chronic systolic (congestive) heart failure; J96.01 Acute respiratory failure with hypoxia; I24.8 Other forms of acute ischemic heart disease; Z20.822 Contact with and (suspected) exposure to COVID-19; I25.10 Atherosclerotic heart disease of native coronary artery without angina pectoris; E11.9 Type 2 diabetes mellitus without complications; I42.8 Other cardiomyopathies; I44.7 Left bundle-branch block, unspecified; E78.5 Hyperlipidemia, unspecified; M10.9 Gout, unspecified; J43.9 Emphysema, unspecified; N40.0 Benign prostatic hyperplasia without lower urinary tract symptoms; I25.2 Old myocardial infarction; Z79.4 Long term (current) use of insulin; Z79.82 Long term (current) use of aspirin; Z95.5 Presence of coronary angioplasty implant and graft; Z79.01 Long term (current) use of anticoagulants; Z86.73 Personal history of transient ischemic attack (TIA), and cerebral infarction without residual deficits; Z79.84 Long term (current) use of oral hypoglycemic drugs; Z79.899 Other long term (current) drug therapy; Z79.891 Long term (current) use of opiate analgesic
CPT/HCPCS: A4314; J1815; J1940; J3475

== ENCOUNTER 2023-07-05 07:15 | Observation (INO) | payer MEDICARE ==
[~2023-07-05] VITALS: Ht 203.2 cm; Wt 153.6 kg
[~2023-07-05 07:15] MED LIST changes: +ENTRESTO 24 MG1 EACH PO; +JARDIANCE10 PO; +LASIX 80MG TABL80 MG PO
[2023-07-05 08:17] LABS: BASO % 0.2 % (0.0-2.0); EOS # 0.2 K/mm3 (0.0-0.7); EOS % 1.5 % (0.0-4.0); GRAN % 81.2 % (42.2-75.2); HEMATOCRIT 45.4 % (42.0-52.0); HEMOGLOBIN 14.7 g/dl (13.5-18.0); LYMPH # 1.5 K/mm3 (1.2-3.4); LYMPH % 9.1 % (20.0-51.0); MEAN CELL VOLUME 96 fl (80.0-100.0); MEAN CORPUSCULAR HEMOGLOBIN 31 pg (27-31); MEAN CORPUSCULAR HGB CONC 32 g/dl (33.0-37.0); MEAN PLATELET VOLUME 10.7 fl (7.4-10.4); MONO # 1.2 K/mm3 (0.1-0.6); MONO % 7.4 % (1.7-9.3); PLATELET COUNT 161 K/mm3 (130-400); RED BLOOD COUNT 4.75 M/mm3 (4.20-5.60)
[2023-07-05 08:46] LABS: ALBUMIN 3.4 gm/dL (3.4-4.8); BILIRUBIN,TOTAL 0.8 mg/dL (0.2-1.2); C-REACTIVE PROTEIN 0.46 mg/dL (0.00-0.50); CALCIUM 9.8 mg/dL (8.4-10.2); CREATININE, serum 1.52 mg/dL (0.72-1.25); POTASSIUM 4.1 mmol/L (3.5-4.5); TOTAL PROTEIN 6.5 gm/dL (6.2-8.1)
[2023-07-05 08:52] LABS: COLLECTION METHOD CLEAN CATCH
[2023-07-05 09:00] LABS: TROPONIN-I 0.055 ng/mL (0.00-0.033)
[2023-07-05 09:07] LABS: URINE APPEARANCE Clear (CLEAR/HAZY); URINE COLOR Yellow (YELLOW)
[2023-07-05 09:13] LABS: SQUAMOUS EPITHELIAL 0-2 /hpf (0-10); URINE BLOOD Negative (NEGATIVE); URINE KETONE Negative (NEGATIVE); URINE NITRATE Negative (NEGATIVE); URINE PROTEIN(semi-quant) Negative (NEGATIVE); URINE RBC None Seen /hpf (0-2); URINE UROBILINOGEN 0.2 E.U/dL (0.2-1.0)
[2023-07-05 09:21] LABS: URINE GLUCOSE 3+ (NEGATIVE)
[2023-07-05] MEDS ORDERED: TOPROL XL 50MG50 MG PO (09:36)
[2023-07-05] MEDS ORDERED: LASIX 80MG TABL80 MG PO (11:55)
[2023-07-05] MEDS ORDERED: PRILOSEC 20MG20 MG PO (11:56)
[2023-07-05] MEDS ORDERED: ZYLOPRIM 300MG300 MG PO (11:59)
[2023-07-05] MEDS ORDERED: MOUNJARO7.5 MG/0.5 SQ (12:00)
[2023-07-05] MEDS ORDERED: BREZTRI AEROS10.7 GM IH (12:02)
--- NOTE | 2023-07-05 13:27 | NUR ---
Patient to room 316 from the ED by wheelchair. A&Ox4. VSS. IV CDI. Nurse oriented the patient to location, room and call light. Patient looking at menu to order lunch. No further needs expressed. Call light within reach.
[2023-07-05 13:49] LABS: CHOLESTEROL RISK RATIO 3.1; MAGNESIUM 1.9 mg/dL (1.6-2.6)
[2023-07-05 16:00] VITALS: BP 139/56; PULSE 77; TEMP 98.1
[2023-07-05 19:22] VITALS: BP 112/52; PULSE 72; TEMP 98.9
[2023-07-05 20:30] VITALS: BP_SYST 131
--- NOTE | 2023-07-05 20:30 | NUR ---
Initial shift assessment done- states some back pain/chronic 04/18--was just given oxycodone at shift change ,, tele on, IV fluids of NS at 100cc/hr, edema legs L>R, bruises arms/legs//very dry scaly skin, has the black necrotic looking area under second/third toe right foot.
[2023-07-05 23:41] VITALS: BP 138/69; PULSE 72; TEMP 97.8
[2023-07-06] VITALS (10 sets, daily range): BP systolic 117–131; BP diastolic 59–93; PULSE 67–72; TEMP 97.8–98.7
--- NOTE | 2023-07-06 06:00 | NUR ---
Did get up to the bathroom once at start of shift/used walker and assist- was unsteady, upset about toilet height and wanted to just urinate in the shower- we told him no- proceeded to urinate all over the floor-- did get him back to bed and things cleaned up-- instructed for the rest of the night he would just stand at the bedside and use the urinal with assist-- he did follow through with this and it worked well-- VSS
[2023-07-06 08:51] LABS: HEMATOCRIT 42.9 % (42.0-52.0); HEMOGLOBIN 13.9 g/dl (13.5-18.0); MEAN CELL VOLUME 95 fl (80.0-100.0); MEAN CORPUSCULAR HEMOGLOBIN 31 pg (27-31); MEAN CORPUSCULAR HGB CONC 32 g/dl (33.0-37.0); MEAN PLATELET VOLUME 11.7 fl (7.4-10.4); PLATELET COUNT 134 K/mm3 (130-400); RED BLOOD COUNT 4.52 M/mm3 (4.20-5.60)
[2023-07-06 09:00] LABS: ALBUMIN 3.1 gm/dL (3.4-4.8); CALCIUM 9.2 mg/dL (8.4-10.2); CREATININE, serum 1.42 mg/dL (0.72-1.25); PHOSPHOROUS 3.2 mg/dL (2.3-4.7); POTASSIUM 4.2 mmol/L (3.5-4.5)
--- NOTE | 2023-07-06 09:47 | NUR ---
Patient resting in bed, watching TV, alert and oriented x 4, VSS, denies any pain or discomfort, complains of the food from the kitchen. Assessment completed, meds provided, no further needs at this time. Call light within reach.
--- NOTE | 2023-07-06 12:08 | NUR ---
Tried to complete intake. Pt sleeping. Will try back later.
--- NOTE | 2023-07-06 18:22 | NUR ---
PT has been watching TV most of the day and sleeping. He is getting fluids and antibiotics per orders. Report will be given to night RN.
--- NOTE | 2023-07-06 20:30 | NUR ---
Initial shift assessment done- states back pain 04/18, will give oxycodone at this time as ordered, Tele on, IV fluids of NS at 100cc/hr, stood at bedside w/walker to void, voided 1400cc at this time, does have a new skin tear to left forearm, cleaned and covered with Mepilex.
[2023-07-07] VITALS (10 sets, daily range): BP systolic 124–134; BP diastolic 53–60; PULSE 68–81; TEMP 97.4–98.3
--- NOTE | 2023-07-07 05:09 | NUR ---
Quiet night- did get a few very short naps last night, VSS, Was up to the side of bed and voided 900cc with one void,,, thats a total of 2300cc of urine out this shift.
[2023-07-07 08:15] LABS: BASO % 0.4 % (0.0-2.0); EOS # 0.3 K/mm3 (0.0-0.7); EOS % 3.5 % (0.0-4.0); GRAN # 4.8 K/mm3 (1.4-6.5); GRAN % 64.1 % (42.2-75.2); HEMATOCRIT 41.2 % (42.0-52.0); HEMOGLOBIN 13.1 g/dl (13.5-18.0); LYMPH # 1.4 K/mm3 (1.2-3.4); LYMPH % 19.1 % (20.0-51.0); MEAN CELL VOLUME 96 fl (80.0-100.0); MEAN CORPUSCULAR HEMOGLOBIN 31 pg (27-31); MEAN CORPUSCULAR HGB CONC 32 g/dl (33.0-37.0); MEAN PLATELET VOLUME 11.4 fl (7.4-10.4); MONO # 0.9 K/mm3 (0.1-0.6); MONO % 12.4 % (1.7-9.3); PLATELET COUNT 132 K/mm3 (130-400)
[2023-07-07 08:30] LABS: CALCIUM 8.8 mg/dL (8.4-10.2); CREATININE, serum 1.57 mg/dL (0.72-1.25); POTASSIUM 4.2 mmol/L (3.5-4.5)
--- NOTE | 2023-07-07 09:00 | NUR ---
Patient is resting in bed, alert and oriented x 3, VSS, getting fluids and antibiotics per orders. No complains of pain or discomfort. Assessment completed, meds provided. No further needs at this time. Call light within reach.
--- NOTE | 2023-07-07 09:06 | NUR ---
SW met with pt to complete intake. Pt lives alone and is independent with ADLS, but does use [facility]. PCP is Dr. Noemi Crawford and gets medications from [facility]. Pt reports he has HH services but can not remember at this time. eleazar Ying @ [phone]. No other needs at this time. SW await for further recommendations and follow up as needed. DC: Home VS SNF.
[2023-07-08] VITALS (8 sets, daily range): BP systolic 97–130; BP diastolic 50–5012; PULSE 64–65; TEMP 97.9–98.1
--- NOTE | 2023-07-08 07:00 | NUR ---
PT RESTING IN BED. PT IS ON RA. PT IS SR ON TELE. PT IS AXOX3. PT HAS CALL LIGHT WITHIN REACH. PT INSTRUCTED TO CALL WITH ALL NEEDS.
[2023-07-08 07:06] LABS: BASO % 0.5 % (0.0-2.0); EOS # 0.3 K/mm3 (0.0-0.7); EOS % 3.5 % (0.0-4.0); GRAN # 4.9 K/mm3 (1.4-6.5); GRAN % 64.1 % (42.2-75.2); HEMATOCRIT 40.5 % (42.0-52.0); LYMPH # 1.7 K/mm3 (1.2-3.4); LYMPH % 21.5 % (20.0-51.0); MEAN CELL VOLUME 96 fl (80.0-100.0); MEAN CORPUSCULAR HEMOGLOBIN 31 pg (27-31); MEAN CORPUSCULAR HGB CONC 32 g/dl (33.0-37.0); MEAN PLATELET VOLUME 10.9 fl (7.4-10.4); MONO # 0.8 K/mm3 (0.1-0.6); MONO % 9.9 % (1.7-9.3); PLATELET COUNT 139 K/mm3 (130-400)
[2023-07-08 07:14] LABS: CALCIUM 8.9 mg/dL (8.4-10.2); CREATININE, serum 1.17 mg/dL (0.72-1.25); POTASSIUM 4.7 mmol/L (3.5-4.5)
[2023-07-08] MEDS ORDERED: DOXYCYCLINE 10100 MG PO (14:33)
[2023-07-08] MEDS ORDERED: LASIX 40MG TABL40 MG PO (14:35)
--- NOTE | 2023-07-08 15:31 | NUR ---
IV AND TELE DC'D. DISCHARGE INSTRUCTIONS DISCUSSED WITH PT. FOLLOW UP APPOINTMENTS DISCUSSED WITH PT. NEW PRESCRIPTIONS DISCUSSED. ALL QUESTIONS ANSWERED. AWAITING TRANSPORT.
--- NOTE | 2023-07-08 16:52 | NUR ---
Treatment Coordinator emt with Patient to discuss discharge planning. SW discussed PT recommendation of home v SNF. Patient selects home with home health through [facility] as he has recieved services through [facility] in the past. SW sent referral to [facility]. Treatment Coordinator discussed Patient's transportation home. Patient states that he has no one to transport him home. SW attempted to contact Patient's son and left voicemail requesting callback. Patient states that he can pay for transportation if needed. SW contacted [facility] [facility] who agrees to transport Patient and estimates $20 for fee. Patient agrees to this. Patient is scheduled for transportation home through [facility] at 1700 today. Treatment Coordinator conducted Medicare IM brief with Patient. Patient acknowledges brief and signs form. Original placed in chart, Patient declined copy.
--- NOTE | 2023-07-08 17:01 | NUR ---
PT WHEELD OUT BY [facility] FOR DISCHARGE. PT BEING PICKED UP BY [facility].
== END 2023-07-08 17:03 | disposition home or self-care (01) ==
LOC: COL.ER 07:15 → MEDICAL 11:43
PROVIDERS: Emergency Medicine; Internal Medicine; ADMIT Hospitalist
DX: A41.9 Sepsis, unspecified organism (principal); E11.621 Type 2 diabetes mellitus with foot ulcer; L97.519 Non-pressure chronic ulcer of other part of right foot with unspecified severity; E11.40 Type 2 diabetes mellitus with diabetic neuropathy, unspecified; I25.10 Atherosclerotic heart disease of native coronary artery without angina pectoris; J44.9 Chronic obstructive pulmonary disease, unspecified; I12.9 Hypertensive chronic kidney disease with stage 1 through stage 4 chronic kidney disease, or unspecified chronic kidney disease; E78.5 Hyperlipidemia, unspecified; I42.9 Cardiomyopathy, unspecified; L03.115 Cellulitis of right lower limb; I21.4 Non-ST elevation (NSTEMI) myocardial infarction; R79.89 Other specified abnormal findings of blood chemistry; I24.89 Other forms of acute ischemic heart disease; E11.22 Type 2 diabetes mellitus with diabetic chronic kidney disease; N18.2 Chronic kidney disease, stage 2 (mild); R94.31 Abnormal electrocardiogram [ECG] [EKG]; Z79.4 Long term (current) use of insulin; Z95.5 Presence of coronary angioplasty implant and graft; Z79.899 Other long term (current) drug therapy; Z89.421 Acquired absence of other right toe(s); Z79.84 Long term (current) use of oral hypoglycemic drugs; Z79.01 Long term (current) use of anticoagulants; Z79.82 Long term (current) use of aspirin; Z87.891 Personal history of nicotine dependence
CPT/HCPCS: A9575; G0378; J1644; J1815; J2543; J3370; J7030; J7040; J7050

== ENCOUNTER 2023-09-28 10:19 | Observation (INO) | payer MEDICARE ==
[~2023-09-28] VITALS: Ht 198.1 cm; Wt 155.9 kg
[~2023-09-28 10:19] MED LIST changes: +BREZTRI AEROS10.7 GM IH; +DOXYCYCLINE 10100 MG PO; +MOUNJARO7.5 MG/0.5 SQ; +TOPROL XL 50MG50 MG PO
[2023-09-28 11:25] LABS: BASO % 0.2 % (0.0-2.0); EOS # 0.1 K/mm3 (0.0-0.7); EOS % 0.7 % (0.0-4.0); GRAN # 11.5 K/mm3 (1.4-6.5); GRAN % 84.3 % (42.2-75.2); HEMATOCRIT 45.7 % (42.0-52.0); HEMOGLOBIN 14.6 g/dl (13.5-18.0); LYMPH # 1.1 K/mm3 (1.2-3.4); LYMPH % 8.1 % (20.0-51.0); MEAN CELL VOLUME 94 fl (80.0-100.0); MEAN CORPUSCULAR HEMOGLOBIN 30 pg (27-31); MEAN CORPUSCULAR HGB CONC 32 g/dl (33.0-37.0); MEAN PLATELET VOLUME 11.3 fl (7.4-10.4); MONO # 0.9 K/mm3 (0.1-0.6); MONO % 6.3 % (1.7-9.3); PLATELET COUNT 153 K/mm3 (130-400); RED BLOOD COUNT 4.89 M/mm3 (4.20-5.60)
[2023-09-28 11:36] LABS: ALBUMIN 3.3 gm/dL (3.4-4.8); BILIRUBIN,TOTAL 0.9 mg/dL (0.2-1.2); CALCIUM 9.5 mg/dL (8.4-10.2); CREATININE, serum 1.17 mg/dL (0.72-1.25); POTASSIUM 4.6 mmol/L (3.5-4.5); TOTAL PROTEIN 6.3 gm/dL (6.2-8.1)
[2023-09-28 11:57] LABS: TROPONIN-I 0.043 ng/mL (0.00-0.033)
[2023-09-28] MEDS ORDERED: Polyethylene Glycol 3350 17 GM PDS PO PRN (13:45)
[2023-09-28] MEDS ORDERED: Acetaminophen 325 MG TAB PO PRN (13:45)
[2023-09-28] MEDS ORDERED: Ondansetron 4 MG/2 ML VIAL IV PRN (13:45)
[2023-09-28] MEDS ORDERED: Docusate Sodium 100 MG CAP PO PRN (13:45)
[2023-09-28] MEDS ORDERED: Budesonide/Glycopyrrolate/Formoterol **** subs to Budesonide + Umeclid/Vilant IH SCH (13:49)
[2023-09-28] MEDS ORDERED: Glucagon 1 MG VIAL IM PRN (15:15)
[2023-09-28] MEDS ORDERED: Dextrose 50% Water 25 GM/50 ML SYRINGE IV PRN (15:15)
[2023-09-28] MEDS ORDERED: Dextrose (Glucose) 15 GM (4 x 3.75 GM) Chewable TABLET PACK PO PRN (15:15)
[2023-09-28] MEDS ORDERED: Lidocaine 4% Topical Patch TP SCH (15:16)
[2023-09-28] MEDS ORDERED: NEXIUM 40MG40 MG PO (15:17)
--- NOTE | 2023-09-28 16:00 | NUR ---
PATIENT ARRIVED FROM ER IN STABLE CONDITION, HE DENIES ANY NEEDS OR COMPLAINTS AT THIS TIME. CALL LIGHT WITHIN REACH. BED ALARM ON. VSS.
[2023-09-28 16:04] VITALS: BP 120/52; PULSE 78
[2023-09-28] MEDS ORDERED: Isosorbide Mononitrate CR (24-HR) 60 MG TAB PO SCH (16:30)
[2023-09-28] MEDS ORDERED: Insulin Aspart (NovoLOG) SQ SCH (17:00)
[2023-09-28 17:20] VITALS: BP_SYST 120
--- NOTE | 2023-09-28 18:46 | NUR ---
PATIENT AWAKE AND ALERT, SITTING UP IN BED. PATIENT DENIES ANY NEEDS AT THIS TIME. PATIENTS CALL LIGHT WITHIN REACH, BED ALARM ON.
[2023-09-28] MEDS ORDERED: Budesonide Neb Susp 0.5 MG/2 ML AMP IH SCH (19:00)
[2023-09-28 19:30] VITALS: BP 145/62; PULSE 73; TEMP 98
[2023-09-28 21:00] VITALS: BP_SYST 145
[2023-09-28] MEDS ORDERED: Doxycycline Monohydrate 100 MG CAP PO SCH (21:00)
--- NOTE | 2023-09-28 22:57 | NUR ---
NURSING SHIFT ASSESSMENT COMPLETED. THE PATIENT WAS ALERT AND ORIENTED. NO S/S OF DISTRESS NOTED. THE PATIENT REPORTED 7/10 LOWER BACK PAIN AND RIGHT SHOULDER PAIN. TYLENOL ORDERED FOR PAIN. TIMELINE DISCUSSED. THE PATIENT REFUSED THE TYLENOL. EVENING MEDICATIONS AND PLAN OF CARE REVIEWED. QUESTIONS AND CONCERNS ADDRESSED. CALL LIGHT AND PERSONAL BELONGINGS WITHIN REACH. BED IN LOW POSITON. BED ALARM ON.
--- NOTE | 2023-09-28 23:02 | NUR ---
AROUND 10 PM THIS FOREST FIRE PREVENTION SPECIALIST RECEIVED A CALL FROM RICARDO TELE MONITOR REPORTING THE PATIENT WAS HAVING INCREASED PVC'S WITH CUPLETS. UPON CHECKING ON THE PATIENT IT WAS NOTED THE PATIENT WAS SLEEPING AND GRUNTING AND SNORING WERE NOTED. THE PATIENT APPEARED NOT TO BE MOVING MUCH AIR WHEN LYING ON HIS BACK AND ASLEEP. ANNETTE CORTES APRN NOTIFIED OF THIS AND A NEW ORDER WAS RECEIVED FOR CPAP AND A MAGNESIUM LEVEL. WILL MONITOR.
[2023-09-29] VITALS (13 sets, daily range): BP systolic 125–169; BP diastolic 58–87; PULSE 67–84; TEMP 97.4–98.7
--- NOTE | 2023-09-29 02:40 | NUR ---
PT REFUSED TO WEAR CPAP. BENEFITS EXPLAINED TO PT. PT STILL REFUSES TO WEAR. NURSE NOTIFIED.
[2023-09-29 05:01] LABS: COLLECTION METHOD CLEAN CATCH
[2023-09-29 05:10] LABS: URINE APPEARANCE Clear (CLEAR/HAZY); URINE COLOR Yellow (YELLOW)
[2023-09-29 05:11] LABS: PH 5.5 (5.0-8.5); URINE BLOOD Negative (NEGATIVE); URINE GLUCOSE 2+ (NEGATIVE); URINE KETONE Negative (NEGATIVE); URINE NITRATE Negative (NEGATIVE); URINE PROTEIN(semi-quant) 2+ (NEGATIVE); URINE UROBILINOGEN 0.2 E.U/dL (0.2-1.0)
[2023-09-29 05:22] LABS: TRICYCLIC ANTIDEPRESS URINE NEGATIVE (NEGATIVE)
[2023-09-29 06:41] LABS: SQUAMOUS EPITHELIAL 0-2 /hpf (0-10); URINE RBC None Seen /hpf (0-2)
--- NOTE | 2023-09-29 07:21 | NUR ---
THE PATIENT HAD NOT VOIDED SINCE ADMISSION. A BLADDER SCAN WAS DONE AND IT READ 1663 ML OF URINE. ANNETTE CORTES APRN NOTIFIED AND A NEW ORDER FOR A MADDEN WAS RECEIVED. A 16F MADDEN CATH WAS PLACED AND 1600 ML OF URINE WAS RETURNED. A UA/DRUG SCREEN WAS SENT TO THE LAB. THE PATIENT TOLERATED THE PROCEDURE WELL.
--- NOTE | 2023-09-29 08:00 | NUR ---
PATINET ASLEEP IN BED, AROUSES EASILY TO NAME. MADDEN CATHETER PATENT. PATIENT DENIES ANY NEEDS OR COMPLAINTS AT THIS TIME. CALL LIGHT WITHIN REACH. FALL PRECAUTIONS PLACED.
[2023-09-29] MEDS ORDERED: Allopurinol 300 MG TAB PO SCH (09:00)
[2023-09-29] MEDS ORDERED: Umeclidinium/Vilanterol 62.5-25 MCG INHALATION/INHALER IH SCH (09:00)
[2023-09-29] MEDS ORDERED: Empagliflozin 10 MG TAB PO SCH (09:00)
[2023-09-29] MEDS ORDERED: Clopidogrel 75 MG TAB PO SCH (09:00)
[2023-09-29] MEDS ORDERED: Ezetimibe 10 MG TAB PO SCH (09:00)
[2023-09-29] MEDS ORDERED: Furosemide 40 MG TAB PO SCH (09:00)
[2023-09-29 09:02] LABS: BASO % 0.1 % (0.0-2.0); EOS # 0.2 K/mm3 (0.0-0.7); GRAN # 5.2 K/mm3 (1.4-6.5); GRAN % 67.5 % (42.2-75.2); HEMATOCRIT 43.3 % (42.0-52.0); HEMOGLOBIN 13.9 g/dl (13.5-18.0); LYMPH # 1.5 K/mm3 (1.2-3.4); LYMPH % 19.7 % (20.0-51.0); MEAN CELL VOLUME 95 fl (80.0-100.0); MEAN CORPUSCULAR HEMOGLOBIN 30 pg (27-31); MEAN CORPUSCULAR HGB CONC 32 g/dl (33.0-37.0); MEAN PLATELET VOLUME 11.4 fl (7.4-10.4); MONO # 0.8 K/mm3 (0.1-0.6); MONO % 10.4 % (1.7-9.3); PLATELET COUNT 127 K/mm3 (130-400); RED BLOOD COUNT 4.58 M/mm3 (4.20-5.60); REDCELL DISTRIBUTION WIDTH-CV 15.1 % (11.5-14.5)
[2023-09-29 09:30] LABS: CALCIUM 9.6 mg/dL (8.4-10.2); CREATININE, serum 1.1 mg/dL (0.72-1.25); POTASSIUM 4.1 mmol/L (3.5-4.5)
--- NOTE | 2023-09-29 10:38 | NUR ---
SW met with patient to complete intake with patient. Patient states that he lives alone in [facility], utilizes a walker, utilizes home health through [facility] services, PCP is Dr. Crawford, and pharmacy is [facility], next of kin is Stepan Garvey [phone] whom is also appointed DPOA/HC. Patient plans to return to his home upon DC. MARTHA will continue to follow. DC plan: home
--- NOTE | 2023-09-29 14:42 | NUR ---
PATIENT AWAKE AND ALERT, SITTING UP IN BED. PATIENT DENIES ANY NEEDS OR COMPLAINTS AT THIS TIME. PATIENTS CALL LIGHT WITHIN REACH. FALL PRECAUTIONS IN PLACE.
--- NOTE | 2023-09-29 20:00 | NUR ---
PATIENT IS A&O. VSS ON TELE. C/O BACK STIFFNESS, REMOVED LIDO PATCH PER ORDERS AND GAVE PRN TYLENOL WITH HS MEDS. NO OTHER COMPLAINTS. TOLERATING ADA DIET. HS BS WAS 200, SSI GIVEN. LEFT UPPER ARM IV TO INT. MADDEN TO DD. HEAD TO TOE ASSESSMENT COMPLETE. NOTED SKIN ISSUES, SEE SHIFT ASSESSMENT. PATIENT IS WEAK AND REQUIRES 1 ASSIST TO COMMODE FOR BM. NO OTHER NEEDS AT THIS TIME. CALL LIGHT IN REACH. BED ALARM ON.
--- NOTE | 2023-09-29 20:17 | NUR ---
PT DECLINED CPAP USE FOR HOSPITAL VISIT STATING IT GAVE HIM A COLD LAST NIGHT AND REQUESTED IT BE TAKEN OUT OF THE ROOM.
[2023-09-29] MEDS ORDERED: Miconazole 2% Topical Powder BOTTLE TP SCH (21:00)
[2023-09-30] VITALS (7 sets, daily range): BP systolic 121–144; BP diastolic 65–85; PULSE 69–94; TEMP 97.8–98.8
[2023-09-30 07:22] LABS: BASO % 0.3 % (0.0-2.0); EOS # 0.2 K/mm3 (0.0-0.7); EOS % 2.5 % (0.0-4.0); GRAN # 4.9 K/mm3 (1.4-6.5); GRAN % 68.4 % (42.2-75.2); HEMATOCRIT 41.9 % (42.0-52.0); HEMOGLOBIN 13.7 g/dl (13.5-18.0); LYMPH # 1.3 K/mm3 (1.2-3.4); LYMPH % 18.3 % (20.0-51.0); MEAN CELL VOLUME 94 fl (80.0-100.0); MEAN CORPUSCULAR HEMOGLOBIN 31 pg (27-31); MEAN CORPUSCULAR HGB CONC 33 g/dl (33.0-37.0); MEAN PLATELET VOLUME 10.9 fl (7.4-10.4); MONO # 0.7 K/mm3 (0.1-0.6); MONO % 10.2 % (1.7-9.3); PLATELET COUNT 138 K/mm3 (130-400); RED BLOOD COUNT 4.48 M/mm3 (4.20-5.60); REDCELL DISTRIBUTION WIDTH-CV 15.1 % (11.5-14.5)
[2023-09-30 07:46] LABS: CALCIUM 9.4 mg/dL (8.4-10.2); CREATININE, serum 1.15 mg/dL (0.72-1.25); POTASSIUM 4.2 mmol/L (3.5-4.5)
--- NOTE | 2023-09-30 08:06 | NUR ---
PHYSICAL THERAPY AT BEDSIDE
[2023-09-30] MEDS ORDERED: MONODOX100 PO (08:35)
--- NOTE | 2023-09-30 08:45 | NUR ---
PT SITTING IN CHAIR UPON ENTERING. ASSESSMENT DONE, MEDS GIVEN PER ORDER. PT DENIES PAIN OR SHORTNESS OF BREATH AT THIS TIME. MADDEN PATENT AND NO COMPLICATIONS NOTED. INT TO RIGHT UPPER ARM FLUSHES WITHOUT COMPLICATIONS. ERYTHEMA NOTED TO PANUS AND GROIN, MICONAZOLE POWDER APPLIED. PT DENIES NEEDS AT THIS TIME. CALL LIGHT IN REACH, CHAIR ALARM ON
--- NOTE | 2023-09-30 10:24 | NUR ---
Initial visit; Patient thanked [employer]boat [employer] for offering God's blessings and to keep him in her prayers. Patient states he is "doing ok" and thanked [employer] for asking.
--- NOTE | 2023-09-30 12:42 | NUR ---
PT UPDATED ON DISCHARGE ORDER. PT STATES THAT HE HAS BEEN TRYING TO CALL HIS RIDE WITH NO ANSWER.
--- NOTE | 2023-09-30 13:04 | NUR ---
ATTEMPTED TO CALL NEXT OF KIN, TATUM, WITH NO ANSWER.
--- NOTE | 2023-09-30 14:39 | NUR ---
IV AND TELE REMOVED BY THIS NURSE. MADDEN REMOVED BY PRISCILLA LYNCH. PT TELLS THIS NURSE THAT SON, TATUM, IS ON THE WAY. PT GIVEN DISCHARGE INSTRUCTIONS AND VERBLAIZED UNDERSTANDING. PT DRESSED IN PERSONAL CLOTHES AND DENIES NEEDS AT THIS TIME. 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 THIS NURSE EDUCATED PT ON TRANSFER OF CARE AND TOLD PT THAT HE MMUST WAIT ON THE FLOOR.
--- NOTE | 2023-09-30 14:44 | NUR ---
PT ESCORTED TO PERSONAL VEHICLE BY GARY WILHELM, VIA WHEELCHAIR
--- NOTE | 2023-09-30 14:50 | NUR ---
clerical and office support workers met with pt to discuss discharge planning. PT/OT reccomend home with HH vs SNF. Patient does not qualify for SNF and reports he is a "poor man" when SW went over private pay. SW went over HH options and verified what services he gets with [employer]. 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 He says it is paid by jonah. Pt went on to express he did not have a ride home. SW exhausted all options such as Uber, EMS transport, or calling family. Pt reports his son is sick and will not. Pt says his FWW is at home and he is too tall for a small car by [employer]. SW urged him to speak with his son, if Uber is not an option then he will have to private pay by EMS. SW spoke with [facility] Crawford and they report they can have a volunteer transport pt home, SW advised he does not have his FWW and will need a larger vehicle. Rain, at [facility] says their volunteer does not have a larger vehicle. MARTHA was informed pt states his son can now come transport him. MARTHA continued going over HH options and provided pt with Medicare.gov list. Pt was agreeable and chose [facility]. MARTHA faxed referral. Discharge Plan: Home with HH tbd?
== END 2023-09-30 14:45 | disposition home health service (06) ==
LOC: COL.ER 10:19 → MEDICAL 13:32
PROVIDERS: Nurse Practitioner Primary Care; ADMIT Internal Medicine
DX: R53.81 Other malaise (principal); S91.205A Unspecified open wound of left lesser toe(s) with damage to nail, initial encounter; L53.9 Erythematous condition, unspecified; I25.10 Atherosclerotic heart disease of native coronary artery without angina pectoris; I25.2 Old myocardial infarction; M54.9 Dorsalgia, unspecified; E11.40 Type 2 diabetes mellitus with diabetic neuropathy, unspecified; I49.3 Ventricular premature depolarization; E66.01 Morbid (severe) obesity due to excess calories; R79.89 Other specified abnormal findings of blood chemistry; Z68.37 Body mass index [BMI] 37.0-37.9, adult; Z79.4 Long term (current) use of insulin; Z79.84 Long term (current) use of oral hypoglycemic drugs; Z95.5 Presence of coronary angioplasty implant and graft; Z79.899 Other long term (current) drug therapy; Z87.891 Personal history of nicotine dependence; W07.XXXA Fall from chair, initial encounter; Y93.9 Activity, unspecified
CPT/HCPCS: A9270; G0378; J1650; J1815; J3475

== ENCOUNTER → 2024-03-31 | Outpatient (CLI) | payer MEDICARE ==
[~2024-03-31] MED LIST changes: +MONODOX100 PO; +NEXIUM 40MG40 MG PO; +PREDNISONE50 MG PO
[2024-03-31 19:07] LABS: BASO % 0.3 % (0.0-2.0); EOS # 0.2 K/mm3 (0.0-0.7); EOS % 2.5 % (0.0-4.0); GRAN # 6.3 K/mm3 (1.4-6.5); GRAN % 73.2 % (42.2-75.2); HEMATOCRIT 40.8 % (42.0-52.0); HEMOGLOBIN 12.7 g/dl (13.5-18.0); LYMPH # 1.3 K/mm3 (1.2-3.4); LYMPH % 15.1 % (20.0-51.0); MEAN CELL VOLUME 98 fl (80.0-100.0); MEAN CORPUSCULAR HEMOGLOBIN 31 pg (27-31); MEAN CORPUSCULAR HGB CONC 31 g/dl (33.0-37.0); MEAN PLATELET VOLUME 10.4 fl (7.4-10.4); MONO # 0.8 K/mm3 (0.1-0.6); MONO % 8.7 % (1.7-9.3); PLATELET COUNT 202 K/mm3 (130-400); RED BLOOD COUNT 4.16 M/mm3 (4.20-5.60); REDCELL DISTRIBUTION WIDTH-CV 14.7 % (11.5-14.5)
[2024-03-31 19:20] LABS: ALBUMIN 2.9 g/dL (3.4-4.8); BILIRUBIN,TOTAL 0.5 mg/dL (0.2-1.2); CALCIUM 9.3 mg/dL (8.4-10.2); CREATININE, serum 0.99 mg/dL (0.72-1.25); POTASSIUM 4.9 mEq/L (3.5-4.5)
== END ==
LOC: ZCOL.LAB 18:46
PROVIDERS: Physician Assistant
DX: E61.1 Iron deficiency (principal); R74.8 Abnormal levels of other serum enzymes